=== PATIENT | male | born 1970 | race Caucasian/White ===

== ENCOUNTER 2019-10-20 15:29 | Emergency (ER) | payer SELFPAY ==
[2019-10-20] MEDS ORDERED: ONDANSETRON 4 MG (ODT) TAB ONE (16:12)
[2019-10-20] MEDS ORDERED: NA CHLORIDE 0.9% 1,000 ML ONE (16:23)
[2019-10-20 16:42] LABS: Urine Blood NEGATIVE (NEG); Urine Glucose NEGATIVE (NEG); Urine Protein 1+ (NEG); Urine pH 8.5 (5.0-7.0)
[2019-10-20 16:49] LABS: Barbiturates NEGATIVE (NEGATIVE); Benzodiazepines NEGATIVE (NEGATIVE); Cocaine NEGATIVE (NEGATIVE); METHAMPHETAM NEGATIVE (NEGATIVE); Methadone NEGATIVE (NEGATIVE); Opiates NEGATIVE (NEGATIVE); Phencyclidine NEGATIVE (NEGATIVE); THC Cannibis POSITIVE (NEGATIVE)
[2019-10-20 16:52] LABS: Basophils % 0.3 % (0-1.3); Lymphocytes % 7.4 % (15.3-44.8); MPV 11.7 fL (7.6-11.3); RBC Red Blood Cell Count 5.22 M/uL (4.33-5.43)
[2019-10-20 17:00] LABS: Albumin 4.5 g/dL (3.4-5.0); Bilirubin Direct 0.1 mg/dL (0-0.2); Bilirubin Total 0.6 mg/dL (0.2-1.0); Potassium 3.8 mmol/L (3.5-5.1); Protein, Total 8.1 g/dL (6.4-8.2)
--- NOTE | 2019-10-20 17:46 | EDPHYS ---
Physician Documentation [facility] Name: Bernard Irving Age: 49 yrs Sex: Male : 1970 Arrival Date: 10/20/2019 Time: 15:33 Bed 26 Private MD: ED Physician Husam Figueroa HPI: 10/20 16:23 This 49 yrs old Male presents to ER via Ambulatory with complaints of snw Vomiting. 16:23 The patient presents to the emergency department with nausea, vomiting, described as snw clear fluid. Onset: The symptoms/episode began/occurred gradually. Possible causes: unknown. Associated signs and symptoms: The patient has no apparent associated signs or symptoms. Severity of symptoms: At their worst the symptoms were severe in the emergency department the symptoms have resolved. The patient has experienced similar episodes in the past, multiple times, and the symptoms today are exactly the same. The patient has not recently seen a physician. no medications, no allergies. Pt states he has seen GI x 1, scope performed, unknown results. Historical: - Allergies: 16:06 No Known Allergies; ca1 - Home Meds: 16:06 None [Active]; ca1 - PMHx: 16:06 Diverticulitis; ca1 - PSHx: 16:06 None; ca1 - Immunization history:: Adult Immunizations up to date, Pneumococcal vaccine is not up to date, Flu vaccine is not up to date. - Social history:: Smoking status: Patient/guardian denies using tobacco. - Ebola Screening: : Patient negative for fever greater than or equal to 101.5 degrees Fahrenheit, and additional compatible Ebola Virus Disease symptoms Patient denies exposure to infectious person Patient denies travel to an Ebola-affected area in the 21 days before illness onset No symptoms or risks identified at this time. ROS: 16:15 Eyes: Negative for injury, pain, redness, and discharge, ENT: Negative for injury, snw pain, and discharge, Neck: Negative for injury, pain, and swelling, Cardiovascular: Negative for chest pain, palpitations, and edema, Respiratory: Negative for shortness of breath, cough, wheezing, and pleuritic chest pain, Back: Negative for injury and pain, : Negative for injury, bleeding, discharge, and swelling, MS/Extremity: Negative for injury and deformity, Skin: Negative for injury, rash, and discoloration, Neuro: Negative for headache, weakness, numbness, tingling, and seizure, Psych: Negative for depression, anxiety, suicide ideation, homicidal ideation, and hallucinations. 16:15 Constitutional: Positive for fatigue, poor PO intake. 16:15 Abdomen/GI: Positive for nausea and vomiting, cyclically/monthly, usually in the mornings. Exam: 16:15 Constitutional: This is a well developed, well nourished patient who is awake, alert, snw and in no acute distress. Head/Face: Normocephalic, atraumatic. Eyes: Pupils equal round and reactive to light, extra-ocular motions intact. Lids and lashes normal. Conjunctiva and sclera are non-icteric and not injected. Cornea within normal limits. Periorbital areas with no swelling, redness, or edema. ENT: Nares patent. No nasal discharge, no septal abnormalities noted. Tympanic membranes are normal and external auditory canals are clear. Oropharynx with no redness, swelling, or masses, exudates, or evidence of obstruction, uvula midline. Mucous membranes moist. Neck: Trachea midline, no thyromegaly or masses palpated, and no cervical lymphadenopathy. Supple, full range of motion without nuchal rigidity, or vertebral point tenderness. No Meningismus. Chest/axilla: Normal chest wall appearance and motion. Nontender with no deformity. No lesions are appreciated. Cardiovascular: Regular rate and rhythm with a normal S1 and S2. No gallops, murmurs, or rubs. Normal PMI, no JVD. No pulse deficits. Respiratory: Lungs have equal breath sounds bilaterally, clear to auscultation and percussion. No rales, rhonchi or wheezes noted. No increased work of breathing, no retractions or nasal flaring. Abdomen/GI: Soft, non-tender, with normal bowel sounds. No distension or tympany. No guarding or rebound. No evidence of tenderness throughout. Back: No spinal tenderness. No costovertebral tenderness. Full range of motion. Skin: Warm, dry with normal turgor. Normal color with no rashes, no lesions, and no evidence of cellulitis. MS/ Extremity: Pulses equal, no cyanosis. Neurovascular intact. Full, normal range of motion. Neuro: Awake and alert, GCS 15, oriented to person, place, time, and situation. Cranial nerves II-XII grossly intact. Motor strength 5/5 in all extremities. Sensory grossly intact. Cerebellar exam normal. Normal gait. Psych: Awake, alert, with orientation to person, place and time. Behavior, mood, and affect are within normal limits. Vital Signs: 16:06 BP 114 / 83; Pulse 84; Resp 16 S; Temp 98.8(O); Pulse Ox 99% on R/A; Weight 79.38 kg ca1 (R); Height 5 ft. 8 in. (172.72 cm) (R); Pain 0/10; 17:30 BP 115 / 69; Pulse 107; Resp 18 S; Pulse Ox 97% on R/A; ca1 17:51 BP 114 / 71; Pulse 87; Resp 17 S; Pulse Ox 99% on R/A; ca1 16:06 Body Mass Index 26.61 (79.38 kg, 172.72 cm) ca1 MDM: 16:09 Patient medically screened. la1 17:46 Data reviewed: vital signs, nurses notes. Data interpreted: Pulse oximetry: on room air snw is 97 %. Interpretation: normal. Response to treatment: the patient's symptoms have mildly improved after treatment. Special discussion: pt annoyed that I would suggest cyclical vomiting due to +UDS. Pt states I just want to get rid of him and makes to leave ED.. 10/20 16:13 Order name: Basic Metabolic Panel; Complete Time: 17:02 snw 10/20 16:13 Order name: CBC with Diff; Complete Time: 23:03 snw 10/20 16:13 Order name: Hepatic Function; Complete Time: 17:02 snw 10/20 16:13 Order name: Lipase; Complete Time: 17:02 snw 10/20 16:13 Order name: UDS; Complete Time: 16:52 snw 10/20 16:28 Order name: Urine Dipstick--Ancillary (enter results); Complete Time: 16:43 eb 10/20 16:13 Order name: Labs collected and sent; Complete Time: 16:29 snw 10/20 16:13 Order name: Urine Dipstick-Ancillary (obtain specimen); Complete Time: 16:28 snw 10/20 17:52 Order name: Manual Differential; Complete Time: 23:03 EDMS Administered Medications: 16:13 Drug: Zofran 4 mg Route: PO; ca1 17:28 Follow up: Response: No adverse reaction; Nausea is decreased ca1 16:29 Drug: NS 0.9% 1000 ml Route: IV; Rate: 1 bolus; Site: right antecubital; ca1 17:28 Follow up: Response: No adverse reaction; IV Status: Completed infusion; IV Intake: ca1 1000ml Disposition: 19:08 Co-signature as Attending Physician, Husam Figueroa MD. rn Disposition: 10/20/19 17:44 Discharged to Home. Impression: Cyclical vomiting, not intractable, Gastritis, unspecified, Dehydration. - Condition is Stable. - Discharge Instructions: Dehydration, Adult, Gastritis, Adult, Rehydration, Adult, Vomiting, Adult. - Prescriptions for promethazine 25 mg Oral Tablet - take 1 tablet by ORAL route every 6 hours As needed; 20 tablet. - Work release form, Medication Reconciliation Form, Thank You Letter, Antibiotic Education, Prescription Opioid Use form. - Follow up: Emergency Department; When: As needed; Reason: Worsening of condition. Follow up: Private Physician; When: 2 - 3 days; Reason: Recheck today's complaints, Continuance of care, Re-evaluation by your physician. Signatures: Dispatcher [employer] EDMS Gloria Perez, [employer] SUPERVISOR-C [employer] SUPERVISOR-Csnw Husam Figueroa MD MD rn Attema, Lee, FNP-C [employer] SUPERVISOR-Cla1 Stephanie Mccray RN RN ca1 Corrections: (The following items were deleted from the chart) 17:44 17:44 10/20/2019 17:44 Discharged to Home. Impression: Cyclical vomiting, not snw intractable; Gastritis, unspecified. Condition is Stable. Forms are Medication Reconciliation Form, Thank You Letter, Antibiotic Education, Prescription Opioid Use. Follow up: Emergency Department; When: As needed; Reason: Worsening of condition. Follow up: Private Physician; When: 2 - 3 days; Reason: Recheck today's complaints, Continuance of care, Re-evaluation by your physician. snw 17:54 17:44 10/20/2019 17:44 Discharged to Home. Impression: Cyclical vomiting, not ca1 intractable; Gastritis, unspecified; Dehydration. Condition is Stable. Forms are Medication Reconciliation Form, Thank You Letter, Antibiotic Education, Prescription Opioid Use. Follow up: Emergency Department; When: As needed; Reason: Worsening of condition. Follow up: Private Physician; When: 2 - 3 days; Reason: Recheck today's complaints, Continuance of care, Re-evaluation by your physician. snw
--- NOTE | 2019-10-20 17:46 | ER ---
Nurse's Notes [facility] Name: Bernard Irving Age: 49 yrs Sex: Male : 1970 Arrival Date: 10/20/2019 Time: 15:33 Bed 26 Private MD: Diagnosis: Cyclical vomiting, not intractable;Gastritis, unspecified;Dehydration Presentation: 10/20 16:03 Presenting complaint: Patient states: Vomiting since 0 today. This comes at least ca1 once a month, the vomiting. It starts as clear liquid then now, its turning red. Denies abdominal pain and diarrhea, cough and congestion. Reports history of Diverticulitis. Transition of care: patient was not received from another setting of care. Onset of symptoms was October 20, 2019 at 04:00. Risk Assessment: Do you want to hurt yourself or someone else? Patient reports no desire to harm self or others. Initial Sepsis Screen: Does the patient meet any 2 criteria? No. Patient's initial sepsis screen is negative. Does the patient have a suspected source of infection? No. Patient's initial sepsis screen is negative. Care prior to arrival: None. 16:03 Method Of Arrival: Ambulatory ca1 16:03 Acuity: ASH 3 ca1 Triage Assessment: 16:06 General: Appears in no apparent distress. comfortable, Behavior is calm, cooperative, ca1 appropriate for age. Pain: Denies pain. EENT: No deficits noted. No signs and/or symptoms were reported regarding the EENT system. Neuro: Level of Consciousness is awake, alert, obeys commands, Oriented to person, place, time, situation, Appropriate for age. Cardiovascular: Heart tones S1 S2 present Capillary refill < 3 seconds Patient's skin is warm and dry. Respiratory: Airway is patent Respiratory effort is even, unlabored, Respiratory pattern is regular, symmetrical, Breath sounds are clear bilaterally. GI: Abdomen is flat, non-distended, Bowel sounds present X 4 quads. Abd is soft and non tender X 4 quads. Reports vomiting, since 399 today. : No deficits noted. No signs and/or symptoms were reported regarding the genitourinary system. Derm: Skin is intact, is healthy with good turgor, Skin is pink, warm \T\ dry. Musculoskeletal: Circulation, motion, and sensation intact. Capillary refill < 3 seconds, Range of motion: intact in all extremities. Historical: - Allergies: 16:06 No Known Allergies; ca1 - Home Meds: 16:06 None [Active]; ca1 - PMHx: 16:06 Diverticulitis; ca1 - PSHx: 16:06 None; ca1 - Immunization history:: Adult Immunizations up to date, Pneumococcal vaccine is not up to date, Flu vaccine is not up to date. - Social history:: Smoking status: Patient/guardian denies using tobacco. - Ebola Screening: : Patient negative for fever greater than or equal to 101.5 degrees Fahrenheit, and additional compatible Ebola Virus Disease symptoms Patient denies exposure to infectious person Patient denies travel to an Ebola-affected area in the 21 days before illness onset No symptoms or risks identified at this time. Screenin:10 Abuse screen: Denies threats or abuse. Denies injuries from another. Nutritional ca1 screening: No deficits noted. Tuberculosis screening: No symptoms or risk factors identified. Fall Risk None identified. Assessment: 16:10 Reassessment: SEE TRIAGE ASSESSMENT. GI: Reports vomiting. ca1 16:10 GI: Abdomen is flat, non-distended, Bowel sounds present X 4 quads. Abd is soft and non ca1 tender X 4 quads. 17:30 Reassessment: Patient appears in no apparent distress at this time. Patient is alert, ca1 oriented x 3, equal unlabored respirations, skin warm/dry/pink. 17:51 Reassessment: Patient appears in no apparent distress at this time. Patient is alert, ca1 oriented x 3, equal unlabored respirations, skin warm/dry/pink. Vital Signs: 16:06 BP 114 / 83; Pulse 84; Resp 16 S; Temp 98.8(O); Pulse Ox 99% on R/A; Weight 79.38 kg ca1 (R); Height 5 ft. 8 in. (172.72 cm) (R); Pain 0/10; 17:30 BP 115 / 69; Pulse 107; Resp 18 S; Pulse Ox 97% on R/A; ca1 17:51 BP 114 / 71; Pulse 87; Resp 17 S; Pulse Ox 99% on R/A; ca1 16:06 Body Mass Index 26.61 (79.38 kg, 172.72 cm) ca1 ED Course: 15:33 Patient arrived in ED. rg4 15:56 Stephanie Mccray, ALISHA is Primary Nurse. ca1 16:05 Triage completed. ca1 16:06 Arm band placed on right wrist. ca1 16:09 Chriss Lopez FNP-C is PHCP. la1 16:09 Husam Figueroa MD is Attending Physician. la1 16:10 Patient has correct armband on for positive identification. Placed in gown. Bed in low ca1 position. Call light in reach. Side rails up X 1. Pulse ox on. NIBP on. Warm blanket given. 16:14 PHCP role handed off by Chriss Lopez FNP-C snw 16:14 Gloria Perez FNP-C is PHCP. snw 16:25 Inserted saline lock: 20 gauge in right antecubital area, using aseptic technique. jp3 Blood collected. Patient maintains SpO2 saturation greater than 95% on room air. 16:25 Initial lab(s) drawn, by me, sent to lab. Urine collected: clean catch specimen, clear, jp3 tyshawn colored. 16:25 Legal drug screen obtained per protocol. jp3 17:53 No provider procedures requiring assistance completed. IV discontinued, intact, ca1 bleeding controlled, No redness/swelling at site. Pressure dressing applied. Administered Medications: 16:13 Drug: Zofran 4 mg Route: PO; ca1 17:28 Follow up: Response: No adverse reaction; Nausea is decreased ca1 16:29 Drug: NS 0.9% 1000 ml Route: IV; Rate: 1 bolus; Site: right antecubital; ca1 17:28 Follow up: Response: No adverse reaction; IV Status: Completed infusion; IV Intake: ca1 1000ml Intake: 17:28 IV: 1000ml; Total: 1000ml. ca1 Outcome: 17:44 Discharge ordered by . snw 17:53 Discharged to home ambulatory. ca1 17:53 Condition: stable 17:53 Discharge instructions given to patient, Instructed on discharge instructions, follow up and referral plans. medication usage, Demonstrated understanding of instructions, follow-up care, medications, Prescriptions given X 1. 17:54 Patient left the ED. ca1 Signatures: Gloria Perez FNP-C FNP-Csnw Chriss Lopez FNP-C FNP-Cla1 Carlene Queen rg4 Charbel Zavala jp3 Stephanie Mccray RN RN ca1 Corrections: (The following items were deleted from the chart) 17:30 16:10 GI: Reports vomiting, ca1 ca1
[2019-10-20 17:52] LABS: Blood Morphology Comment NOT SEEN (NOT SEEN); Platelet Estimate ADEQ
[2019-10-20 19:05] VITALS: TEMP 98.8
[2019-10-20 19:07] VITALS: BP 114/71; O2SAT 99
== END 2019-10-20 17:54 | disposition home or self-care (01) ==
LOC: ER 15:29
DX: E86.0 Dehydration (principal); K29.70 Gastritis, unspecified, without bleeding
CPT/HCPCS: 36415; 80048; 80076; 80307; 81003; 83690; 85025; 96360; 99284; J7030

== ENCOUNTER 2021-06-16 14:43 | Emergency (ER) | payer SELFPAY ==
--- OUTSIDE RECORDS SUMMARY | 2021-06-16 14:46 | XMS REPORT | Continuity of Care Document ---
:1970 Author Organization [facility] t Address [address] [place] [place] [address] Care Team Providers Name Role Phone Harjinder ARAMBULA Attending Clinician Singer DOWNS Attending Clinician Problems This patient has no known problems. Allergies, Adverse Reactions, Alerts This patient has no known allergies or adverse reactions. Medications This patient has no known medications. Procedures This patient has no known procedures. Encounters Start End Encounter Admission Attending Care Care Encounter Source Date/Time Date/Time Type Type Clinicians Facility Department ID 2021-02-18 2021[facility]02-18 [id number] 13:21:00 16:27:00 Nadeem Gant [id number] [place] [id number] [place] [id number] 2021-02-16 2021-02-17 Emergency [facility] [id number] 21:09:00 00:08:00 Johnathan Gant [id number] [place] [id number] [place] [id number] Results This patient has no known results.
[2021-06-16] MEDS ORDERED: ONDANSETRON 4 MG (ODT) TAB ONE (16:15)
[2021-06-16 16:26] LABS: Absolute Lymphocytes (CBC) 0.7 K/uL (0.7-4.9); Basophils % 0.3 % (0-1.3); Hematocrit 46.9 % (39.6-49.0); Lymphocytes % 4.7 % (15.3-44.8); MPV 10.6 fL (7.6-11.3); RBC Red Blood Cell Count 5.24 M/uL (4.33-5.43)
[2021-06-16 16:39] LABS: Albumin 4.7 g/dL (3.4-5.0); Bilirubin Direct 0.1 mg/dL (0-0.2); Bilirubin Total 0.5 mg/dL (0.2-1.0); Potassium 4.1 mmol/L (3.5-5.1); Protein, Total 8.3 g/dL (6.4-8.2)
[2021-06-16] MEDS ORDERED: ONDANSETRON 4 MG/2 ML VIAL ONE (16:54)
[2021-06-16] MEDS ORDERED: NA CHLORIDE 0.9% 1,000 ML ONE (16:55)
[2021-06-16] MEDS ORDERED: FAMOTIDINE 20 MG/2 ML VIAL IV ONE (16:55)
[2021-06-16] MEDS ORDERED: PROMETHAZINE INJ 25 MG/ML AMP ONE (17:14)
--- NOTE | 2021-06-16 17:34 | RAD REPORT ---
EXAM DESCRIPTION: CT - Abdomen Pelvis W Contrast - 06/16/2021 5:11 pm CLINICAL HISTORY: Abd pain;Nausea / vomiting COMPARISON: <Comparisons> TECHNIQUE: Biphasic, helical CT imaging of the abdomen and pelvis was performed following 100 ml non -ionic IV contrast. No oral contrast was given. All CT scans are performed using dose optimization technique as appropriate and may include automated exposure control or mA/KV adjustment according to patient size. FINDINGS: No suspicious findings in the lung bases. The liver, spleen, and pancreas show no suspicious findings. Gallbladder and biliary tree are also wi thout suspicious finding. Symmetric renal function is seen with no hydronephrosis or suspicious renal mass. No pyelonephritis o r acute parenchymal process. No bladder abnormalities. No adrenal abnormalities. No dilated bowel loops or bowel wall thickening. Appendix is normal. Diverticulosis is present withou t diverticulitis. No gross evidence for mass lesion. Decompressed colon on the left limits assessment . No free air, free fluid or inflammatory stranding. No hernia, mass or bulky lymphadenopathy. No suspicious bony findings. No significant vascular findings. 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 IMPRESSION: Contrast enhanced CT abdomen and pelvis showing no acute or emergent finding.
--- NOTE | 2021-06-16 17:55 | EDPHYS ---
Physician Documentation [facility] Name: Bernard Irving Age: 50 yrs Sex: Male : 1970 Arrival Date: 06/16/2021 Time: 14:44 Bed Treatment Private MD: DAYNA Physician Luis Rivera HPI: 06/16 16:50 This 50 yrs old Male presents to ER via EMS with complaints of sarai Nausea/Vomiting. 16:50 The patient presents to the emergency department with nausea, vomiting, diarrhea, that sarai is continuous. Onset: The symptoms/episode began/occurred this morning. Possible causes: unknown. The symptoms are aggravated by nothing. The symptoms are alleviated by nothing. Associated signs and symptoms: The patient has no apparent associated signs or symptoms. Severity of symptoms: At their worst the symptoms were moderate in the emergency department the symptoms are unchanged. The patient has not experienced similar symptoms in the past. Historical: - Allergies: 15:47 No Known Allergies; kg - Home Meds: 15:47 None [Active]; kg - PMHx: 15:47 Diverticulitis; kg - PSHx: 15:47 None; kg - Immunization history:: Adult Immunizations not up to date, Client reports having NOT received the Covid vaccine. - Social history:: Smoking status: Patient denies any tobacco usage or history of. ROS: 16:50 Constitutional: Negative for fever, chills, and weight loss, Eyes: Negative for injury, sarai pain, redness, and discharge, ENT: Negative for injury, pain, and discharge, Neck: Negative for injury, pain, and swelling, Cardiovascular: Negative for chest pain, palpitations, and edema, Respiratory: Negative for shortness of breath, cough, wheezing, and pleuritic chest pain, Back: Negative for injury and pain, : Negative for injury, bleeding, discharge, and swelling, MS/Extremity: Negative for injury and deformity, Skin: Negative for injury, rash, and discoloration, Neuro: Negative for headache, weakness, numbness, tingling, and seizure, Psych: Negative for depression, anxiety, suicide ideation, homicidal ideation, and hallucinations, Allergy/Immunology: Negative for hives, rash, and allergies, Endocrine: Negative for neck swelling, polydipsia, polyuria, polyphagia, and marked weight changes, Hematologic/Lymphatic: Negative for swollen nodes, abnormal bleeding, and unusual bruising. 16:50 Abdomen/GI: Positive for abdominal pain, nausea and vomiting, diarrhea. Exam: 16:50 Constitutional: This is a well developed, well nourished patient who is awake, alert, sarai and in no acute distress. Head/Face: Normocephalic, atraumatic. Eyes: Pupils equal round and reactive to light, extra-ocular motions intact. Lids and lashes normal. Conjunctiva and sclera are non-icteric and not injected. Cornea within normal limits. Periorbital areas with no swelling, redness, or edema. ENT: Nares patent. No nasal discharge, no septal abnormalities noted. Tympanic membranes are normal and external auditory canals are clear. Oropharynx with no redness, swelling, or masses, exudates, or evidence of obstruction, uvula midline. Mucous membranes moist. Neck: Trachea midline, no thyromegaly or masses palpated, and no cervical lymphadenopathy. Supple, full range of motion without nuchal rigidity, or vertebral point tenderness. No Meningismus. Chest/axilla: Normal chest wall appearance and motion. Nontender with no deformity. No lesions are appreciated. Cardiovascular: Regular rate and rhythm with a normal S1 and S2. No gallops, murmurs, or rubs. Normal PMI, no JVD. No pulse deficits. Respiratory: Lungs have equal breath sounds bilaterally, clear to auscultation and percussion. No rales, rhonchi or wheezes noted. No increased work of breathing, no retractions or nasal flaring. Back: No spinal tenderness. No costovertebral tenderness. Full range of motion. Male : Normal genitalia with no discharge or lesions. Skin: Warm, dry with normal turgor. Normal color with no rashes, no lesions, and no evidence of cellulitis. MS/ Extremity: Pulses equal, no cyanosis. Neurovascular intact. Full, normal range of motion. Neuro: Awake and alert, GCS 15, oriented to person, place, time, and situation. Cranial nerves II-XII grossly intact. Motor strength 5/5 in all extremities. Sensory grossly intact. Cerebellar exam normal. Normal gait. Psych: Awake, alert, with orientation to person, place and time. Behavior, mood, and affect are within normal limits. 16:50 Abdomen/GI: Inspection: abdomen appears normal, Bowel sounds: normal, Palpation: abdomen is soft and non-tender, Liver: no appreciated palpable abnormalities, Hernia: not appreciated. Vital Signs: 15:46 BP 117 / 76; Pulse 108; Resp 20; Temp 98.5(O); Pulse Ox 97% on R/A; Weight 81.65 kg kg (R); Height 5 ft. 8 in. (172.72 cm); Pain 3/10; 15:46 Body Mass Index 27.37 (81.65 kg, 172.72 cm) kg MDM: 15:56 Patient medically screened. [facility] 16:58 Differential diagnosis: Nonspecific abd pain, viral gastroenteritis, gastroenteritis. [facility] Data reviewed: vital signs, nurses notes, lab test result(s), EKG, radiologic studies, CT scan. 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 on room air is 97 %. Counseling: I had a detailed discussion with the patient and/or guardian regarding: the historical points, exam findings, and any diagnostic results supporting the discharge/admit diagnosis, lab results, radiology results, the need for outpatient follow up, for definitive care, a family practitioner. 06/16 15:49 Order name: Flu; Complete Time: 16:48 kg 06/16 15:49 Order name: Basic Metabolic Panel; Complete Time: 16:48 kg 06/16 15:49 Order name: CBC with Diff; Complete Time: 16:48 kg 06/16 15:49 Order name: Hepatic Function; Complete Time: 16:48 kg 06/16 15:49 Order name: Lipase; Complete Time: 16:48 kg 06/16 16:13 Order name: Chest Single View XRAY [facility] 06/16 16:50 Order name: CT Abd/Pelvis - IV Contrast Only; Complete Time: 17:54 [facility] 06/16 17:28 Order name: SARS-COV-2 RT PCR; Complete Time: 17:54 EDMS 06/16 15:49 Order name: IV Saline Lock; Complete Time: 16:17 kg 06/16 15:49 Order name: Labs collected and sent; Complete Time: 16:17 kg Administered Medications: 15:52 Drug: Ondansetron 4 mg Route: PO; kg 16:39 Drug: NS 0.9% 1000 ml Route: IV; Rate: 1 bolus; Site: right antecubital; iw 16:39 Drug: Zofran (Ondansetron) 4 mg Route: IVP; Site: right antecubital; iw 16:39 Drug: Pepcid (famotidine) 20 mg Route: IVP; Site: right antecubital; iw 16:55 Drug: Phenergan (promethazine) 25 mg Route: IVP; Site: right antecubital; iw 18:37 Not Given (Physician Discretion): NS 0.9% 1000 ml IV at 1 bolus Per protocol; 1000 mL iw bolus Disposition Summary: 06/16/21 17:55 Discharge Ordered Location: Home sarai Problem: new sarai Symptoms: have improved sarai Condition: Stable sarai Diagnosis - Vomiting sarai - Diarrhea, unspecified sarai Followup: sarai - With: Private Physician - When: 2 - 3 days - Reason: Recheck today's complaints, Continuance of care, Re-evaluation by your physician Discharge Instructions: - Discharge Summary Sheet sarai - Food Choices to Help Relieve Diarrhea, Adult sarai - Diarrhea, Adult sarai - Nausea and Vomiting, Adult sarai - Vomiting, Adult sarai Forms: - Medication Reconciliation Form [facility] - Thank You Letter [facility] - Antibiotic Education sarai - Prescription Opioid Use [facility] - Work release form eb Prescriptions: - Pepcid 20 mg Oral Tablet - take 1 tablet by ORAL route every 12 hours for 10 days; 20 tablet; Refills: 0, [facility] Product Selection Permitted - Zofran 4 mg Oral Tablet - take 1 tablet by ORAL route every 12 hours As needed; 20 tablet; Refills: 0, [facility] Product Selection Permitted - promethazine 25 mg Oral Tablet - take 1 tablet by ORAL route every 6 hours As needed; 20 tablet; Refills: 0, [facility] Product Selection Permitted Signatures: Dispatcher [employer] EDLuis Martinez MD MD cha Williams, Irene, RN RN iw Graham, Kristen, RN RN kg Corrections: (The following items were deleted from the chart) 16:33 15:50 CORONAVIRUS+MARTHAAugustin ordered. [facility] DAYNAGA
--- NOTE | 2021-06-16 17:55 | ER ---
Nurse's Notes [facility] Name: Bernard Irving Age: 50 yrs Sex: Male : 1970 Arrival Date: 06/16/2021 Time: 14:44 Bed Treatment Private MD: Diagnosis: Vomiting;Diarrhea, unspecified Presentation: 06/16 15:46 Chief complaint: Patient states: Nausea, Vomiting, Diarrhea since 03:00. Coronavirus kg screen: Client denies travel out of the [place] in the last 14 days. At this time, unable to obtain information related to travel outside the [place] Client presents with at least one sign or symptom that may indicate coronavirus-19. Standard/surgical mask placed on the client. Provider contacted for isolation considerations. Ebola Screen: Patient negative for fever greater than or equal to 101.5 degrees Fahrenheit, and additional compatible Ebola Virus Disease symptoms Patient denies exposure to infectious person. Patient denies travel to an Ebola-affected area in the 21 days before illness onset. Initial Sepsis Screen: Does the patient meet any 2 criteria? Does the patient have a suspected source of infection? No. Patient's initial sepsis screen is negative. Risk Assessment: Do you want to hurt yourself or someone else? Patient reports no desire to harm self or others. Onset of symptoms was June 16, 2021 at 03:00. 15:46 Method Of Arrival: EMS: [facility] kg 15:46 Acuity: ASH 4 kg 16:56 Acuity: ASH 3 iw Triage Assessment: 15:47 General: Appears in no apparent distress. Behavior is calm, cooperative, appropriate kg for age, quiet. Pain: Complains of pain in epigastric area Pain currently is 3 out of 10 on a pain scale. GI: Reports diarrhea, nausea, vomiting. Historical: - Allergies: 15:47 No Known Allergies; kg - Home Meds: 15:47 None [Active]; kg - PMHx: 15:47 Diverticulitis; kg - PSHx: 15:47 None; kg - Immunization history:: Adult Immunizations not up to date, Client reports having NOT received the Covid vaccine. - Social history:: Smoking status: Patient denies any tobacco usage or history of. Screenin:56 Abuse screen: Denies threats or abuse. Denies injuries from another. Nutritional iw screening: Has had N/V for 3 or more days. Tuberculosis screening: No symptoms or risk factors identified. Fall Risk Assessment: 16:56 Reassessment: Patient appears in no apparent distress at this time. Patient and/or iw family updated on plan of care and expected duration. Pain level reassessed. Patient is alert, oriented x 3, equal unlabored respirations, skin warm/dry/pink. Vital Signs: 15:46 BP 117 / 76; Pulse 108; Resp 20; Temp 98.5(O); Pulse Ox 97% on R/A; Weight 81.65 kg kg (R); Height 5 ft. 8 in. (172.72 cm); Pain 3/10; 15:46 Body Mass Index 27.37 (81.65 kg, 172.72 cm) kg ED Course: 14:44 Patient arrived in ED. as 15:47 Triage completed. kg 15:47 Arm band placed on left wrist. kg 15:53 Flu Sent. kg 15:56 Luis Rivera MD is Attending Physician. sarai 16:16 Britney Cook, RN is Primary Nurse. iw 16:35 Initial lab(s) drawn, by ia, sent to lab. Inserted saline lock: 22 gauge in right em1 antecubital area, using aseptic technique. Blood collected. 17:08 Chest Single View XRAY In Process Unspecified. EDMS 17:11 CT Abd/Pelvis - IV Contrast Only In Process Unspecified. EDMS Administered Medications: 15:52 Drug: Ondansetron 4 mg Route: PO; kg 16:39 Drug: NS 0.9% 1000 ml Route: IV; Rate: 1 bolus; Site: right antecubital; iw 16:39 Drug: Zofran (Ondansetron) 4 mg Route: IVP; Site: right antecubital; iw 16:39 Drug: Pepcid (famotidine) 20 mg Route: IVP; Site: right antecubital; iw 16:55 Drug: Phenergan (promethazine) 25 mg Route: IVP; Site: right antecubital; iw 18:37 Not Given (Physician Discretion): NS 0.9% 1000 ml IV at 1 bolus Per protocol; 1000 mL iw bolus Outcome: 17:55 Discharge ordered by . sarai 18:37 Patient left the ED. iw Signatures: Dispatcher [employer] EDMS Luis Rivera MD MD cha Martinez, Aleena as Joey, Britney, Deshawn Sadler RN em1 Lena Rendon, ALISHA RN kg Corrections: (The following items were deleted from the chart) 16:33 15:53 CORONAVIRUS+ drawn and sent. kg EDMS
--- NOTE | 2021-06-16 18:06 | RAD REPORT ---
EXAM DESCRIPTION: RAD - Chest Single View - 06/16/2021 5:06 pm CLINICAL HISTORY: COUGH TECHNIQUE: AP portable chest image was obtained 06/16/2021 5:06 pm . FINDINGS: Lungs are clear. Interstitial pattern not clearly outside of normal range. Heart and vascu lature are normal. No measurable pleural effusion and no pneumothorax. No acute bony abnormality seen . No acute aortic findings suspected. IMPRESSION: No acute cardiopulmonary process.
[2021-06-16 18:42] VITALS: BP 117/76; TEMP 98.5; O2SAT 97
== END 2021-06-16 18:37 | disposition home or self-care (01) ==
LOC: ER 14:43
DX: R19.7 Diarrhea, unspecified (principal); Z20.822 Contact with and (suspected) exposure to COVID-19
CPT/HCPCS: 36415; 71045; 74177; 80048; 80076; 83690; 85025; 87804; 96374; 96375; 99284; J2405; J2550; J7030; Q9967; U0003

== ENCOUNTER 2023-02-17 09:32 | Inpatient (IN) | payer SELFPAY ==
--- OUTSIDE RECORDS SUMMARY | 2023-02-17 09:38 | XMS REPORT | Continuity of Care Document ---
:1970 Author Organization [facility] t Address [address] [facility] [address] [place] [address] Care Team Providers Name Role Phone PCP, PATIENT DOES NOT HAVE A Primary Care Physician Unavaila ble Jesus Sanchez Attending Clinician Jesus DEE Attending Clinician Unavailable Doctor Unassigned, [place] Attending Clinician Unavailable Nadeem Grande MD Attending Clinician Johnathan Resendez DO Attending Clinician Jesus DEE Admitting Clinician Unavailable Problems Condition Condition Condition Status Onset Resolution Last Treating Co mments Source Name Details Category Date Date Treatment Clinician Date Intractabl Intractabl Disease Active 2019-0 U nivers e vomiting e vomiting 1-21 it y of 00:00: [place] 00 Medical Branch Nausea and Nausea and Disease Active 2019-0 U nivers vomiting vomiting 1-17 ity of 00:00: [place] 00 Medical Branch Intractabl Intractabl Disease Active 2019-0 U nivers e nausea e nausea 1-16 ity of and and 00:00: [place] vomiting vomiting 00 Medica l Branch Lower Lower Disease Active 2019-0 Overview: Univer s abdominal abdominal 1-16 Formattin i ty of pain pain 00:00: g of this [place] 00 note Medical might be Branch different from the original. Added automatic ally from request for surgery [id number] Allergies, Adverse Reactions, Alerts Allergy Allergy Status Severity Reaction(s) Onset Inactive Treating Comm ents Source Name Type Date Date Clinician NO KNOWN Drug Active Univers ALLERGIE Class ity of S [facility] Social History Social Habit Start Date Stop Date Quantity Comments Source History SDOH University o f Alcohol Frequency [place] M edical Branch History SDOH University o f Alcohol Std [place] Medical Drinks Branch History SDOH University o f Alcohol Binge [place] Medic al Branch Exposure to 2022-03-14 2022-03-24 Unable to assess Univers ity of SARS-CoV-2 00:00:00 15:58:00 [facility] (event) Branch Alcohol intake 2019-03-03 2019-03-03 Current drinker Unive rsity of 00:00:00 00:00:00 of alcohol [facility] (finding) Branch Tobacco use and 2018-11-10 2018-11-10 Never used Universit y of exposure 00:00:00 00:00:00 [facility] Alcohol Comment 2018-11-10 2018-11-10 socially Universit y of 00:00:00 00:00:00 [facility] Sex Assigned At [birth year] Universit y of 00:00:00 00:00:00 [facility] Smoking Status Start Date Stop Date Source Never smoker [facility] Medications Ordered Filled Start Stop Current Ordering Indication Dosage Frequency Signature Comments Components Source Medication Medication Date Date Medication? Clinician (SIG) Name Name ondansetron 2021- No 4mg 4 mg, Slow Univers (ZOFRAN 03-25- IV Push, ity of (PF)) 01:45: 00:53 ONCE, 1 [place] injection 4 00 :00 dose, On Medi jhonatan mg Mon Branch 03/24/22 at 2044, CHRISTOPHER NaCl 0.9% 2021- No 1000mL at 999 Uni vers (NS) bolus 03-25-31 mL/hr, ity of infusion 01:45: 03:00 1,000 mL, Lion as 1,000 mL 00 :00 IV Medical Infusion, Branch ONCE, 1 dose, On 03/24/22 at 2044, STAT NaCl 0.9% 2021- No 1000mL at 999 Uni vers (NS) bolus - 05-31 mL/hr, ity of infusion 00:15: 00:54 1,000 mL, [place] as 1,000 mL 00 :00 IV Medical Infusion, Branch ONCE, 1 dose, On 03/24/22 at 1915, STAT maalox:diph 2021- No 15mL 15 mL, Uni vers enhydrAMINE 03-2530 Oral ity of :lidocaine 00:15: 23:30 ([place] % viscous 00 :00 Swallow), Med ical 1:1:1 ONCE, 1 Branch (FIRST-MOUT dose, On HWASH BLM) Mon oral 03/24/22 at suspension 1915, 15 mL Routine famotidine 2021- No 20mg 20 mg, Univ ers (PEPCID 03-25 05-30 Slow IV ity of (PF)) 00:15: 23:30 Push, [place] injection 00 :00 ONCE, 1 Medical 20 mg dose, On Branch 03/24/22 at 1915, CHRISTOPHER iopamidol 2021- No [id number] 75mL 75 mL, Univers (ISOVUE 03-24-30 Intravenou ity o f 370-500 mL) 23:17: 23:18 s, ONCE, 1 [place] injection 00 :00 dose, On Medica l 75 mL Mon Branch 03/24/22 at 1830, Routine ondansetron 2021- No 4mg 4 mg, Slow Univers (ZOFRAN 03-24 05-30 IV Push, ity of (PF)) 22:30: 22:17 ONCE, 1 [place] injection 4 00 :00 dose, On Medi jhonatan mg Mon Branch 03/24/22 at 1730, CHRISTOPHER ondansetron Yes [id number] 4mg Take 1 Univers (ZOFRAN) 4 5-30 tablet by ity of mg tablet 00:00: mouth [place] 00 every 8 Medical (eight) Branch hours as needed for Nausea and Vomiting (N/V). famotidine Yes [id number] 40mg Take 1 Univers (PEPCID) 40 5-30 tablet by ity of mg tablet 00:00: mouth [place] 00 daily. Medical Branch proMETHazin Yes [id number] 25mg Take 1 Univers e 25 mg 4-26 tablet by ity of tablet 00:00: mouth [place] 00 every 6 Medical (six) Branch hours as needed for Nausea and Vomiting (N/V). pantoprazol 2020-0 Yes [id number] 40mg Take 1 Univers e 40 mg EC 4-26 tablet by ity of tablet 00:00: mouth daily. Medical Branch proMETHazin 2020-0 Yes [id number] 25mg Take 1 Univers e 25 mg 4-26 tablet by ity of tablet 00:00: mouth [place] 00 every 6 Medical (six) Branch hours as needed for Nausea and Vomiting (N/V). pantoprazol 2020-0 Yes [id number] 40mg Take 1 Univers e 40 mg EC 4-26 tablet by ity of tablet 00:00: mouth daily. Medical Branch Capsaicin 2020-0 Yes [id number] Apply to Univers 0.025 % 4-24 area(s) as ity of PtMd 00:00: needed for Nausea and Medical Vomiting Branch (N/V). dicyclomine 0 Yes [id number] 10mg Take 1 Univers 10 mg 4-24 capsule by ity of capsule 00:00: mouth every 8 Medical (eight) Branch hours as needed for Abdominal pain. ondansetron 0 Yes [id number] 4mg Take 1 Univers 4 mg 4-24 tablet by ity of disintegrat 00:00: mouth [place] ing tablet 00 every 8 Medica l (eight) Branch hours as needed for Nausea and Vomiting (N/V). Capsaicin 2020-0 Yes [id number] Apply to Univers 0.025 % 4-24 area(s) as ity of PtMd 00:00: needed for Nausea and Medical Vomiting Branch (N/V). dicyclomine 0 Yes [id number] 10mg Take 1 Univers 10 mg 4-24 capsule by ity of capsule 00:00: mouth every 8 Medical (eight) Branch hours as needed for Abdominal pain. ondansetron 0 Yes [id number] 4mg Take 1 Univers 4 mg 4-24 tablet by ity of disintegrat 00:00: mouth [place] ing tablet 00 every 8 Medica l (eight) Branch hours as needed for Nausea and Vomiting (N/V). sucralfate 2018-0 Yes [id number] 1000mg Take 10 mL Univers (CARAFATE) 5-09 by mouth ity o f 100 mg/mL 00:00: before [place] suspension 00 meals and Medi jhonatan at Branch bedtime. benzonatate 2019-0 Yes [id number] 100mg Take 1 Univers 100 mg 5-09 capsule by ity of capsule 00:00: mouth 3 (three) Medical times Branch daily as needed for Cough. sucralfate 2019-0 Yes [id number] 1000mg Take 10 mL Univers (CARAFATE) 5-09 by mouth ity o f 100 mg/mL 00:00: before [place] suspension 00 meals and [facility] at Branch bedtime. benzonatate 2019-0 Yes [id number] 100mg Take 1 Univers 100 mg 5-09 capsule by ity of capsule 00:00: mouth 3 (three) Medical times Branch daily as needed for Cough. ciprofloxac 2019-0 Yes [id number] 500mg Take 1 Univers in HCl 500 5-03 tablet by ity of mg tablet 00:00: mouth 2 (two) Medical times Branch daily. proMETHazin 2019-0 Yes [id number] 25mg Take 1 Univers e 25 mg 5-03 tablet by ity of tablet 00:00: mouth [place] every 6 Medical (six) Branch hours as needed for Nausea and Vomiting (N/V). ciprofloxac 2019-0 Yes [id number] 500mg Take 1 Univers in HCl 500 5-03 tablet by ity of mg tablet 00:00: mouth 2 (two) Medical times Branch daily. proMETHazin 2019-0 Yes [id number] 25mg Take 1 Univers e 25 mg 5-03 tablet by ity of tablet 00:00: mouth [place] every 6 Medical (six) Branch hours as needed for Nausea and Vomiting (N/V). ciprofloxac 2019-0 Yes [id number] 500mg Take 1 Univers in HCl 500 1-23 tablet by ity of mg tablet 00:00: mouth 2 (two) Medical times Branch daily. ciprofloxac 2019-0 Yes [id number] 500mg Take 1 Univers in HCl 500 1-23 tablet by ity of mg tablet 00:00: mouth 2 [place] (two) Medical times Branch daily. Vital Signs Vital Name Observation Time Observation Value Comments Source Respiratory rate 2022-03-25 01:46:00 20 /min [facility] Oxygen saturation in 2022-03-25 01:46:00 96 /min [facility] blood by [facility] Pulse oximetry Branch Systolic blood 2022-03-25 01:46:00 110 mm[Hg] [facility] [place] [facility] pressure [facility] Diastolic blood 2022-03-25 01:46:00 69 mm[Hg] [facility] Heart rate 2022-03-25 01:46:00 67 /min [facility] Body temperature 2022-03-25 01:46:00 37.28 Shivani [facility] Body height 2022-03-24 21:08:00 172.7 cm [facility] Body weight 2022-03-24 21:08:00 81.647 kg [facility] BMI 2022-03-24 21:08:00 27.37 kg/m2 [facility] Procedures Procedure Date / Time Performed Performing Clinician Ede e CT ABDOMEN PELVIS W 2022-03-24 23:24:00 Jesus Dee [facility] CONTRAST [facility] URINALYSIS 2022-03-24 22:46:00 Jesus Dee [facility] LIPASE 2022-03-24 22:11:00 Carlos A, [facility] MAGNESIUM 2022-03-24 22:11:00 Carlos A, [facility] TROPONIN I 2022-03-24 22:11:00 Carlos A, [facility] COMP. METABOLIC PANEL 2022-03-24 22:11:00 Jesus Dee [facility] ([id number]) [facility] CBC WITH DIFF 2022-03-24 22:11:00 Carlos A, [facility] ASSIGNMENT OF BENEFITS 2022-03-24 21:55:11 Doctor Unassigned, No [facility] Medical [place] NOTICE OF PRIVACY 2022-03-24 20:57:45 Doctor Unassigned, No [facility] CONSENT/REFUSAL FOR 2022-03-24 20:57:17 Doctor Unassigned, No [facility] DIAGNOSIS AND [facility] Medical Branch TREATMENT Encounters Start End Encounter Admission Attending Care Care Encounter Source Date/Time Date/Time Type Type Clinicians Facility Department ID 2022-03-24 2022-03-24 Emergency Jesus Dee [facility] [id number] Univers 16:10:00 22:02:00 Maritza GANT [id number] i ty of [place] 4.2.7.2.686 [facility] [id number] [facility] 084 [place] 2022-03-24 2022-03-24 Emergency X Jesus DEE [facility] ERT [id number] Univers 16:10:00 22:02:00 ity [facility] 2022-03-24 2022-03-24 Orders Doctor ROGERS [id number] Univers 00:00:00 00:00:00 Only Unassigned, UMER [id number] ity [facility] 4.2.7.2.686 [facility] [id number] [facility] 009 Branch 2021-02-18 2021-02-18 [facility] [id number] 13:21:00 16:27:00 Nadeem Stalin [id number] [place] 4.2.7.2.686 [place] [id number] [facility] 2021-02-18 2021-02-18 Emergency X [facility] ERT [id number] Univers 13:15:00 13:15:00 ity [facility] 2021-02-16 2021-02-17 Emergency Resendez, [facility] [id number] 21:09:00 00:08:00 Johnathan Gant 350.1.13.10 [place] 4.2.7.2.686 [place] [id number] [facility] 2021-02-16 2021-02-16 Emergency X [facility] ERT [id number] Univers 21:03:00 [facility]:03[facility] Test Description Test Time Test Comments Results Result Comments Source TROPONIN I 2022-03-24 22:56:15 Test Item Value Reference Range Interpretation Comme nts TROPONIN I (test code = <0.012 See_Comment [Au tomated message] The 1876583435) system which ge nerated this result tra nsmitted reference range : <=0.034 ng/mL. The refe rence range was not u sed to interpret this result as normal/abnormal . KALI (test code = KALI) Reference (Normal) Range (defined by the 99th percentile reference limit): <= 0.034 ng/mL Note: Cardiac troponin begins to rise 3-4 hours after the onset of ischemia. Repeat in 4-6 hours if the sample was drawn within 3-4 hours of the onset of the symptom and found normal. Diagnosis of myocardial injury is made with acute changes in cTn concentrations with at least one serial sample above the 99th percentile upper reference limit (URL), taken together with the patient's clinical presentation. Biotin has been reported to cause a negative bias, interpret results relative to patient's use of biotin. Lab Interpretation Normal (test code = 18634-1) [facility]57 Test Item Value Reference Range Interpretation Comments MAGNESIUM (test code = 9363962990) 1.9 mg/dL 1.7-2.4 Lab Interpretation (test code = Normal 07976-3) [facility] ([id number])2022-03-24 22:44:37 Test Item Value Reference Range Interpretation Comments NA (test code = 142 mmol/L 135-145 8230524315) K (test code = 4.6 mmol/L 3.5-5.0 4213243501) CL (test code = 104 mmol/L 98-108 0497294396) CO2 TOTAL (test code = 24 mmol/L 23-31 8329710819) AGAP (test code = 2-16 7660705029) BUN (test code = 13 mg/dL 7-23 9073325426) GLUCOSE (test code = 130 mg/dL 70-110 H 5501331001) CREATININE (test code = 0.93 mg/dL 0.60-1.25 3227452278) TOTAL BILI (test code = 0.5 mg/dL 0.1-1.8 0407181975) CALCIUM (test code = 9.6 mg/dL 8.6-10.6 9783000585) T PROTEIN (test code = 7.6 g/dL 6.3-8.2 1971394021) ALBUMIN (test code = 4.8 g/dL 3.5-5.0 2696649151) ALK PHOS (test code = 63 U/L 34-122 0066069682) ALTv (test code = 16 U/L 5-50 1742-6) AST(SGOT) (test code = 21 U/L 13-40 1309522794) eGFR (test code = mL/min/1.73m2 7286377286) KALI (test code = KALI) Association of Glomerular Filtration Rate (GFR) and Staging of Kidney Disease* + --+ --+ ------+| GFR (mL/min/1.73 m2) ?| With Kidney Damage ?| ?Without Kidney Damage+ --------+ --------+ +| ?>90 ?| ?Stage one ?| ? Normal ?+ ---+ ---+ -------+| ?60-89 ?| ?Stage two ?| ? Decreased GFR ? + --+ --+ ------+| ?30-59 ?| ?Stage three ?| ? Stage three ? + --+ --+ ------+| ?15-29 ?| ?Stage four ? | ? Stage four ?+ ---+ ---+ -------+| ?<15 (or dialysis) ? ?| ?Stage five ? | ? Stage five ?+ ---+ ---+ -------+ *Each stage assumes the associated GFR level has been in effect for at least three months. ?Stages 1 to 5, with or without kidney disease, indicate chronic kidney disease. Notes: Determination of stages one and two (with eGFR >59mL/min/1.73 m2) requires estimation of kidney damage for at least three months as defined by structural or functional abnormalities of the kidney, manifested by either:Pathological abnormalities or Markers of kidney damage (including abnormalities in the composition of the blood or urine or abnormalities in imaging tests). Lab Interpretation Abnormal (test code = 61811-6) [facility] 22[facility]44:37 Test Item Value Reference Range Interpretation Comments LIPASE (test code = 9676041189) 138 U/L 0-220 Lab Interpretation (test code = Normal 72982-4) [facility] P[facility]Y0148-09-25 22:30:54 Test Item Value Reference Range Interpretation Comments WBC (test code = See_Comment H [Automated 8090-2) message] The system which generated this result transmit courtney reference range : 4.20 - 10.70 10*3/?L. The reference range was not used to interpret this result as normal/abnormal . RBC (test code = See_Comment [Automated 789-8) message] The system which generated this result transmit courtney reference range : 4.26 - 5.52 10*6/?L. The reference range was not used to interpret this result as normal/abnormal . HGB (test code = 16.0 g/dL 12.2-16.4 718-7) HCT (test code = 47.8 % 38.4-49.3 4544-3) MCV (test code = 89.8 fL 81.7-95.6 787-2) MCH (test code = 30.1 pg 26.1-32.7 785-6) MCHC (test code = 33.5 g/dL 31.2-35.0 786-4) RDW-SD (test code = 39.8 fL 38.5-51.6 20958-9) RDW-CV (test code = 12.1 % 12.1-15.4 788-0) PLT (test code = See_Comment [Automated 777-3) message] The system which generated this result transmit courtney reference range : 150 - 328 10*3/ ?L. The reference range was not u sed to interpret th is result as normal/abnormal . MPV (test code = 12.0 fL 9.8-13.0 17854-4) NRBC/100 WBC (test See_Comment [Automat ed code = 9981360962) message] The system which generated this result transmit courtney reference range : 0.0 - 10.0 /100 WBCs. The reference range was not used to interpret this result as normal/abnormal . NRBC x10^3 (test code <0.01 See_Comment [Auto mated = 2311734564) message] The system which generated this result transmit courtney reference range : 10*3/?L. The reference range was not used to interpret this result as normal/abnormal . GRAN MAT (NEUT) % 86.7 % (test code = 770-8) IMM GRAN % (test code 0.40 % = 7949418322) LYMPH % (test code = 8.7 % 736-9) MONO % (test code = 3.8 % 5905-5) EOS % (test code = 0.1 % 713-8) BASO % (test code = 0.3 % 706-2) GRAN MAT x10^3(ANC) 11.82 10*3/uL 1.99-6.95 H (test code = 0425254739) IMM GRAN x10^3 (test 0.05 10*3/uL 0.00-0.06 code = 3661653127) LYMPH x10^3 (test code 1.18 10*3/uL 1.09-3.23 = 731-0) MONO x10^3 (test code 0.52 10*3/uL 0.36-1.02 = 742-7) EOS x10^3 (test code = <0.03 0.06-0.53 L 711-2) BASO x10^3 (test code 0.04 10*3/uL 0.01-0.09 = 704-7) Lab Interpretation Abnormal (test code = 05015-7) [facility]"
--- NOTE | 2023-02-17 10:29 | RAD REPORT ---
EXAM DESCRIPTION: US - Abdomen Exam Limited - 02/17/2023 10:02 am CLINICAL HISTORY: ABD PAIN COMPARISON: Abdomen Pelvis W Contrast dated 06/16/2021 TECHNIQUE: Sonographic grayscale and color flow images of the right upper abdominal quadrant were obtained. FINDINGS: The gallbladder demonstrates no gallstones. Small volume layering sludge. Thickened and ed ematous gallbladder wall, up to 1 centimeter, with wall hyperemia. Small volume pericholecystic fluid . The common bile duct is normal measuring 3 millimeter in caliber. The liver demonstrates no findings of intrahepatic biliary dilatation. IMPRESSION: Gallbladder wall thickening and hyperemia, raising concern for acute cholecystitis. Small volume sludge, without evidence of gallstones.
[2023-02-17] MEDS ORDERED: MAGNES/ALUMIN/SIMET 30ML UCUP ONE (10:48)
[2023-02-17] MEDS ORDERED: NA CHLORIDE 0.9% 1,000 ML ONE (10:49)
[2023-02-17] MEDS ORDERED: LIDOCAINE VISCOUS 2% SOLN 15 ML UDC ONE (10:49)
[2023-02-17] MEDS ORDERED: ONDANSETRON 4 MG/2 ML VIAL ONE (10:49)
[2023-02-17] MEDS ORDERED: MORPHINE 4 MG/ML SYR ONE (10:49)
[2023-02-17] MEDS ORDERED: FAMOTIDINE 20 MG/2 ML VIAL IV ONE (10:50)
[2023-02-17 11:15] LABS: Absolute Lymphocytes (CBC) 0.8 K/uL (0.7-4.9); Hematocrit 42.6 % (39.6-49.0); Lymphocytes % 11.2 % (15.3-44.8); MCV 88.6 fL (80-100); MPV 10.4 fL (7.6-11.3); RBC Red Blood Cell Count 4.81 M/uL (4.33-5.43)
[2023-02-17 11:31] LABS: Albumin 3.2 g/dL (3.4-5.0); Bilirubin Total 0.8 mg/dL (0.2-1.0); Potassium 3.6 mEq/L (3.5-5.1)
--- NOTE | 2023-02-17 12:16 | RAD REPORT ---
EXAM DESCRIPTION: CT - Abdomen Pelvis W Contrast - 02/17/2023 11:57 am CLINICAL HISTORY: Abd pain;Nausea / vomiting COMPARISON: Abdomen Pelvis W Contrast dated 06/16/2021; Abdomen Exam Limited dated 02/17/2023 TECHNIQUE: Thin cut axial CT imaging of the abdomen and pelvis was performed following intravenous a dministration of 100 mL Isovue 300. Multiplanar reformats were generated and reviewed. All CT scans are performed using dose optimization technique as appropriate and may include automated exposure control or mA/KV adjustment according to patient size. FINDINGS: No suspicious findings in the lung bases. The liver, spleen, and pancreas show no suspicious findings. Gallbladder and biliary tree are also wi thout suspicious finding. Gallbladder wall thickening and mucosal hyperenhancement. Other findings on ultrasound of the same da y were also suggestive of acute cholecystitis. Symmetric renal function is seen with no hydronephrosis or suspicious renal mass. No dilated bowel loops. Mild burden of colonic diverticula. Short segment of focal wall thickening al serge the proximal sigmoid colon, with adjacent fat stranding. No appreciable fluid collections Or disc rete extraluminal gas. No hernia, mass or bulky lymphadenopathy. The urinary bladder is without signi ficant finding. No suspicious bony findings. IMPRESSION: Acute proximal sigmoid diverticulitis. No evidence of complications. Gallbladder wall thickening and mucosal hyperenhancement. Other findings on ultrasound of the same da y were also suggestive of acute cholecystitis. The findings were communicated to Husam Figueroa on 02/17/2023 at 12:12 hours.
--- NOTE | 2023-02-17 12:25 | ER ---
Nurse's Notes [facility] Name: Bernard Irving Age: 52 yrs Sex: Male : 1970 Arrival Date: 02/17/2023 Time: 09:32 Bed 24 Private MD: Diagnosis: Acute cholecystitis;Diverticulitis of large intestine with perforation and abscess without bleeding Presentation: 02/17 09:53 Chief complaint: Patient states: he has been having nausea, vomiting and abdominal pain ap3 for approx 5 days. Coronavirus screen: At this time, the client does not indicate any symptoms associated with coronavirus-19. Ebola Screen: No symptoms or risks identified at this time. Initial Sepsis Screen: Does the patient meet any 2 criteria? No. Patient's initial sepsis screen is negative. Does the patient have a suspected source of infection? No. Patient's initial sepsis screen is negative. Risk Assessment: Do you want to hurt yourself or someone else? Patient reports no desire to harm self or others. Onset of symptoms was February 12, 2023. 09:53 Method Of Arrival: Ambulatory ap3 09:53 Acuity: ASH 3 ap3 Triage Assessment: 09:58 General: Appears uncomfortable, Behavior is calm, cooperative, appropriate for age. ap3 Pain: Complains of pain in abdomen Pain currently is 3 out of 10 on a pain scale. at worst was 6 out of 10 on a pain scale. Neuro: Level of Consciousness is awake, alert, obeys commands, Oriented to person, place, time, situation. GI: Reports lower abdominal pain, upper abdominal pain, nausea, vomiting. Historical: - Allergies: 09:56 No Known Allergies; ap3 - Home Meds: 09:56 None [Active]; ap3 - PMHx: 09:56 Diverticulitis; ap3 - Immunization history:: Client reports having NOT received the Covid vaccine. - Social history:: Smoking status: Patient denies any tobacco usage or history of. - Family history:: not pertinent. - Hospitalizations: : No recent hospitalization is reported. Screenin:57 [facility] ED Fall Risk Assessment (Adult) History of falling in the last 3 months, ap3 including since admission No falls in past 3 months (0 pts). Abuse screen: Denies threats or abuse. Nutritional screening: No deficits noted. Tuberculosis screening: No symptoms or risk factors identified. Assessment: 10:55 Reassessment: Patient appears in no apparent distress at this time. Patient and/or nj1 family updated on plan of care and expected duration. Pain level reassessed. Patient is alert, oriented x 3, equal unlabored respirations, skin warm/dry/pink. Pain: Complains of pain in abdomen Pain currently is 4 out of 10 on a pain scale. GI: Reports lower abdominal pain, upper abdominal pain, Patient currently denies nausea. 11:40 Reassessment: Patient appears in no apparent distress at this time. Patient and/or nj1 family updated on plan of care and expected duration. Pain level reassessed. Patient is alert, oriented x 3, equal unlabored respirations, skin warm/dry/pink. Patient states feeling better. Patient states symptoms have improved. Pain: Complains of pain in abdomen Pain currently is 2 out of 10 on a pain scale. 12:30 Reassessment: Patient appears in no apparent distress at this time. No changes from [facility] previously documented assessment. Patient and/or family updated on plan of care and expected duration. Pain level reassessed. Patient is alert, oriented x 3, equal unlabored respirations, skin warm/dry/pink. 13:30 Reassessment: Patient appears in no apparent distress at this time. No changes from nj1 previously documented assessment. Patient and/or family updated on plan of care and expected duration. Pain level reassessed. Patient is alert, oriented x 3, equal unlabored respirations, skin warm/dry/pink. Patient states feeling better. 14:30 Reassessment: Patient appears in no apparent distress at this time. Patient and/or nj1 family updated on plan of care and expected duration. Pain level reassessed. Patient is alert, oriented x 3, equal unlabored respirations, skin warm/dry/pink. Pain: Complains of pain in head Pain currently is 5 out of 10 on a pain scale. 15:30 Reassessment: Patient appears in no apparent distress at this time. No changes from nj1 previously documented assessment. Patient and/or family updated on plan of care and expected duration. Pain level reassessed. Patient is alert, oriented x 3, equal unlabored respirations, skin warm/dry/pink. 16:19 Reassessment: Patient appears in no apparent distress at this time. Patient and/or nj1 family updated on plan of care and expected duration. Pain level reassessed. Patient is alert, oriented x 3, equal unlabored respirations, skin warm/dry/pink. Pain: Complains of pain in abdomen Pain currently is 3 out of 10 on a pain scale. 16:19 Pain: Complains of pain in head Pain currently is 5 out of 10 on a pain scale. nj1 17:07 Reassessment: Patient appears in no apparent distress at this time. Patient and/or nj1 family updated on plan of care and expected duration. Pain level reassessed. Patient is alert, oriented x 3, equal unlabored respirations, skin warm/dry/pink. Patient denies pain at this time. 18:39 Reassessment: Patient appears in no apparent distress at this time. No changes from mo1 previously documented assessment. Patient and/or family updated on plan of care and expected duration. Pain level reassessed. Patient is alert, oriented x 3, equal unlabored respirations, skin warm/dry/pink. Patient denies pain at this time. Vital Signs: 09:53 BP 110 / 92; Pulse 102; Resp 18; Temp 98.4; Pulse Ox 100% ; Weight 79.38 kg; Pain 3/10; ap3 12:30 BP 123 / 81; Pulse 93; Resp 18; Pulse Ox 97% on R/A; Pain 2/10; nj1 13:30 BP 116 / 75; Pulse 84; Resp 17; Pulse Ox 99% ; Pain 2/10; nj1 14:30 BP 115 / 77; Pulse 81; Resp 17; Pulse Ox 99% ; nj1 15:30 BP 109 / 75; Pulse 82; Resp 16; Pulse Ox 99% ; nj1 16:19 BP 106 / 64; Pulse 91; Resp 16; Pulse Ox 100% ; nj1 17:07 BP 115 / 77; Pulse 83; Resp 16; Pulse Ox 96% on R/A; nj1 18:38 BP 124 / 80; Pulse 85; Resp 16; Temp 98.8; Pulse Ox 100% ; Pain 0/10; nj1 09:53 Pain Scale: Adult ap3 12:30 Pain Scale: Adult nj1 13:30 Pain Scale: Adult nj1 18:38 Pain Scale: Adult nj1 ED Course: 09:36 Patient arrived in ED. rg4 09:36 Husam Figueroa MD is Attending Physician. rn 09:55 Triage completed. ap3 09:57 Arm band placed on right wrist. ap3 10:04 US Abdomen Limited In Process Unspecified. EDMS 10:38 Zoila Dorado, ALISHA is Primary Nurse. nj1 10:55 Patient has correct armband on for positive identification. Bed in low position. Call nj1 light in reach. Side rails up X 1. 11:14 Inserted saline lock: 20 gauge in left antecubital area, using aseptic technique. Blood nj1 collected. 11:59 CT Abd/Pelvis - IV Contrast Only In Process Unspecified. EDMS 12:24 Clement Figueroa MD is Hospitalizing Provider. rn 18:36 No provider procedures requiring assistance completed. nj1 18:36 Patient admitted, IV remains in place. nj1 Administered Medications: 10:55 Drug: NS 0.9% IV 1000 ml Route: IV; Rate: 1 bolus; Site: left antecubital; nj1 11:40 Follow up: Response: No adverse reaction; IV Status: Completed infusion; IV Intake: nj1 1000ml 11:00 Drug: Ondansetron IVP 4 mg Route: IVP; Site: left antecubital; nj1 11:40 Follow up: Response: No adverse reaction nj1 11:02 Drug: morphine IVP or IV 4 mg Route: IVP; Infused Over: 4 mins; Site: left antecubital; nj1 11:40 Follow up: Response: No adverse reaction; Pain is decreased nj1 11:06 Drug: Famotidine IVP 20 mg Route: IVP; Site: left antecubital; nj1 11:40 Follow up: Response: No adverse reaction nj1 11:10 Drug: GI Cocktail without - (Maalox PO Suspension 30 ml, Lidocaine Mucous nj1 Membrane Liquid 2 % 15 ml) Route: PO; 11:40 Follow up: Response: No adverse reaction nj1 12:53 Drug: metroNIDAZOLE IVPB 500 mg Volume: 100 ml; Route: IVPB; Rate: 200 ml/hr; Infused nj1 Over: 30 mins; Site: left antecubital; 13:26 Follow up: Response: No adverse reaction; IV Status: Completed infusion; IV Intake: nj1 100ml 13:26 Drug: Ciprofloxacin IVPB 400 mg Volume: 200 ml; Route: IVPB; Infused Over: 60 mins; nj1 Site: left antecubital; 14:30 Follow up: Response: No adverse reaction; IV Status: Completed infusion; IV Intake: nj1 200ml 16:19 Drug: morphine IVP or IV 2 mg Route: IVP; Infused Over: 4 mins; Site: left antecubital; nj1 17:07 Follow up: Response: No adverse reaction; Pain is decreased nj1 Medication: 18:36 VIS not applicable for this client. nj1 Intake: 11:40 IV: 1000ml; Total: 1000ml. nj1 13:26 IV: 100ml; Total: 1100ml. nj1 14:30 IV: 200ml; Total: 1300ml. nj1 Outcome: 12:24 Decision to Hospitalize by Provider. rn 18:36 Admitted to Med/surg accompanied by tech, via wheelchair, room 214, Report called to nj1 Mireya Baer RN 18:36 Condition: stable 18:36 Instructed on the need for admit. 18:46 Patient left the ED. nj1 Signatures: Dispatcher [employer] EDMS Husam Figueroa MD MD rn Garcia, Rubi rg4 Amna Garcia RN RN ap3 Zoila Dorado RN RN nj1 Corrections: (The following items were deleted from the chart) 17:47 17:19 BP 115 / 77; Pulse 83bpm; Resp 16bpm; Pulse Ox 96% RA; nj1 nj 18:46 18:36 Admitted to Med/surg accompanied by tech, Report called to Mireya Baer RN nj nj
--- NOTE | 2023-02-17 12:25 | EDPHYS ---
Physician Documentation [facility] Name: Bernard Irving Age: 52 yrs Sex: Male : 1970 Arrival Date: 02/17/2023 Time: 09:32 Bed 24 Private MD: ED Physician Husam Figueroa HPI: 02/17 09:52 This 52 yrs old Male presents to ER via Unassigned with complaints of Vomiting, rn Abdominal Pain. 09:52 The patient presents to the emergency department with nausea, vomiting, diarrhea, rn abdominal pain. Onset: The symptoms/episode began/occurred 3 day(s) ago. Possible causes: unknown. The symptoms are aggravated by food , The symptoms are alleviated by nothing. Associated signs and symptoms: Pertinent positives: abdominal pain, diarrhea, nausea, vomiting, Pertinent negatives: fever, GI bleeding. Severity of symptoms: At their worst the symptoms were moderate in the emergency department the symptoms are unchanged. The patient has not experienced similar symptoms in the past. The patient has not recently seen a physician. Pt reports a few days of nausea/vomiting/diarrhea. No blood in stool. Reports problems with acid reflux and vomits almost daily with dry cough in AM. Recently placed on abx for dental infection, no longer taking abx. . Historical: - Allergies: 09:56 No Known Allergies; ap3 - Home Meds: 09:56 None [Active]; ap3 - PMHx: 09:56 Diverticulitis; ap3 - Immunization history:: Client reports having NOT received the Covid vaccine. - Social history:: Smoking status: Patient denies any tobacco usage or history of. - Family history:: not pertinent. - Hospitalizations: : No recent hospitalization is reported. ROS: 09:52 Constitutional: Negative for fever, chills, and weight loss, Eyes: Negative for injury, rn pain, redness, and discharge, Neck: Negative for injury, pain, and swelling, Cardiovascular: Negative for chest pain, palpitations, and edema, Respiratory: Negative for shortness of breath, cough, wheezing, and pleuritic chest pain, Abdomen/GI: + abd pain and nausea/vomiting/diarrhea Back: Negative for injury and pain, MS/Extremity: Negative for injury and deformity, Skin: Negative for injury, rash, and discoloration, Neuro: + generalized weakness Exam: 09:52 Constitutional: This is a well developed, well nourished patient who is awake, alert, rn and in no acute distress. Head/Face: Normocephalic, atraumatic. ENT: Dry MM Cardiovascular: Tachycardic, regular rhythm. No pulse deficits. Respiratory: No increased work of breathing, no retractions or nasal flaring. Abdomen/GI: Soft, no focal tenderness Skin: Warm, dry MS/ Extremity: Pulses equal, no cyanosis. Neuro: Awake and alert, GCS 15, normal gait Vital Signs: 09:53 BP 110 / 92; Pulse 102; Resp 18; Temp 98.4; Pulse Ox 100% ; Weight 79.38 kg; Pain 3/10; ap3 12:30 BP 123 / 81; Pulse 93; Resp 18; Pulse Ox 97% on R/A; Pain 2/10; nj1 13:30 BP 116 / 75; Pulse 84; Resp 17; Pulse Ox 99% ; Pain 2/10; nj1 14:30 BP 115 / 77; Pulse 81; Resp 17; Pulse Ox 99% ; nj1 15:30 BP 109 / 75; Pulse 82; Resp 16; Pulse Ox 99% ; nj1 16:19 BP 106 / 64; Pulse 91; Resp 16; Pulse Ox 100% ; nj1 17:07 BP 115 / 77; Pulse 83; Resp 16; Pulse Ox 96% on R/A; nj1 18:38 BP 124 / 80; Pulse 85; Resp 16; Temp 98.8; Pulse Ox 100% ; Pain 0/10; nj1 09:53 Pain Scale: Adult ap3 12:30 Pain Scale: Adult nj1 13:30 Pain Scale: Adult nj1 18:38 Pain Scale: Adult nj1 MDM: 09:36 Patient medically screened. rn 12:21 Differential diagnosis: Nonspecific abd pain, gastritis, cholecystitis, pancreatitis, rn appendicitis, diverticulitis, viral gastroenteritis, gastroenteritis. Data reviewed: vital signs, nurses notes, lab test result(s), radiologic studies, CT scan, ultrasound, and as a result, I will admit patient. Consideration of Admission/Observation Patient was admitted/placed on observation. Escalation of care including admission/observation considered. Counseling: I had a detailed discussion with the patient and/or guardian regarding: the historical points, exam findings, and any diagnostic results supporting the discharge/admit diagnosis, lab results, radiology results, the need for further work-up and treatment in the hospital. Response to treatment: the patient's symptoms have mildly improved after treatment, and as a result, I will admit patient. 02/17 09:45 Order name: CBC with Diff; Complete Time: 11:36 rn 02/17 09:45 Order name: CMP; Complete Time: 11:36 rn 02/17 09:45 Order name: Lipase; Complete Time: 11:36 rn 02/17 17:27 Order name: Creatine Phosphokinase [facility] 02/17 17:27 Order name: Magnesium [facility] 02/17 17:27 Order name: NT PRO-BNP [facility] 02/17 17:27 Order name: Phosphorus [facility] 02/17 17:28 Order name: Urinalysis w/ reflexes [facility] 02/17 17:28 Order name: Basic Metabolic Panel [facility] 02/17 17:28 Order name: Basic Metabolic Panel [facility] 02/17 17:28 Order name: CBC with Automated Diff [facility] 02/17 17:28 Order name: CBC with Automated Diff [facility] 02/17 09:45 Order name: CT Abd/Pelvis - IV Contrast Only; Complete Time: 12:20 rn 02/17 09:45 Order name: US Abdomen Limited; Complete Time: 10:33 rn 02/17 17:27 Order name: CONS Physician Consult [facility] 02/17 17:27 Order name: NPO [facility] 02/17 09:45 Order name: IV Saline Lock; Complete Time: 11:12 rn 02/17 09:45 Order name: Labs collected and sent; Complete Time: 11:12 rn 02/17 12:20 Order name: NPO; Complete Time: 12:26 rn Administered Medications: 10:55 Drug: NS 0.9% IV 1000 ml Route: IV; Rate: 1 bolus; Site: left antecubital; nj1 11:40 Follow up: Response: No adverse reaction; IV Status: Completed infusion; IV Intake: nj1 1000ml 11:00 Drug: Ondansetron IVP 4 mg Route: IVP; Site: left antecubital; nj1 11:40 Follow up: Response: No adverse reaction nj1 11:02 Drug: morphine IVP or IV 4 mg Route: IVP; Infused Over: 4 mins; Site: left antecubital; nj1 11:40 Follow up: Response: No adverse reaction; Pain is decreased nj1 11:06 Drug: Famotidine IVP 20 mg Route: IVP; Site: left antecubital; nj1 11:40 Follow up: Response: No adverse reaction nj1 11:10 Drug: GI Cocktail without - (Maalox PO Suspension 30 ml, Lidocaine Mucous nj1 Membrane Liquid 2 % 15 ml) Route: PO; 11:40 Follow up: Response: No adverse reaction nj1 12:53 Drug: metroNIDAZOLE IVPB 500 mg Volume: 100 ml; Route: IVPB; Rate: 200 ml/hr; Infused nj1 Over: 30 mins; Site: left antecubital; 13:26 Follow up: Response: No adverse reaction; IV Status: Completed infusion; IV Intake: nj1 100ml 13:26 Drug: Ciprofloxacin IVPB 400 mg Volume: 200 ml; Route: IVPB; Infused Over: 60 mins; nj1 Site: left antecubital; 14:30 Follow up: Response: No adverse reaction; IV Status: Completed infusion; IV Intake: nj1 200ml 16:19 Drug: morphine IVP or IV 2 mg Route: IVP; Infused Over: 4 mins; Site: left antecubital; nj1 17:07 Follow up: Response: No adverse reaction; Pain is decreased nj1 Disposition Summary: 02/17/23 12:24 Hospitalization Ordered Hospitalization Status: Inpatient Admission rn Provider: Clement Figueroa rn Location: Telemetry/[facility] (Inpatient) rn Condition: Stable rn Problem: new rn Symptoms: have improved rn Bed/Room Type: Standard rn Room Assignment: 214(02/17/23 18:02) kj1 Diagnosis - Acute cholecystitis rn - Diverticulitis of large intestine with perforation and abscess without bleeding internal consultant Instructions: - Discharge Summary Sheet rn Forms: - Medication Reconciliation Form rn - SBAR form rn Prescriptions: - Protonix 40 mg Oral Tablet - take 1 tablet by ORAL route once daily; 30 tablet; Refills: 0, Product rn Selection Permitted Signatures: Dispatcher [employer] EDMS Husam Figueroa MD MD rn Prokisch, Amanda, RN RN [id number] Jodi Camacho kj1 Zoila Dorado RN RN nj1 Corrections: (The following items were deleted from the chart) 09:55 09:52 Constitutional: This is a well developed, well nourished patient who is awake, rn alert, and in no acute distress. Head/Face: Normocephalic, atraumatic. ENT: Dry MM Cardiovascular: Regular rate and rhythm. No pulse deficits. Respiratory: No increased work of breathing, no retractions or nasal flaring. Abdomen/GI: Soft, no focal tenderness Skin: Warm, dry MS/ Extremity: Pulses equal, no cyanosis. Neuro: Awake and alert, GCS 15, normal gait rn 18:02 12:24 rn kj1
[2023-02-17] MEDS ORDERED: CIPROFLOXACIN 400mg IV 400 MG/200 ML BAG IV ONE (12:47)
[2023-02-17] MEDS ORDERED: METRONIDAZOLE 500mg IVPB 500 MG/100 ML BAG IV ONE (12:48)
[2023-02-17] MEDS ORDERED: MORPHINE 2 MG/ML SYR ONE (16:21)
[2023-02-17] MEDS ORDERED: ACETAMINOPHEN 650MG/RECT SUPP PR PRN (17:16)
[2023-02-17 18:46] LABS: Phosphorus 2.5 mg/dL (2.5-4.9)
--- NOTE | 2023-02-17 20:29 | P.HP ---
Certification for Inpatient Patient admitted to: Inpatient With expected LOS: >2 Midnights Patient will require the following post-hospital care: None Practitioner: I am a practitioner with admitting privileges, knowledge of patient current condition, hospital course, and medical plan of care. Services: Services provided to patient in accordance with Admission requirements found in Title 42 Section 412.3 of the Code of Federal Regulations Patient History Date of Service: 02/17/23 Reason for admission: Abdominal pain, diarrhea, nausea and vomiting History of Present Illness: Patient is a 52-year-old male with a past medical history significant for diverticulitis, GERD who presents with complaint of generalized abdominal pain, nausea, vomiting and diarrhea that has been ongoing for the past couple months but became worse in the last 3 days. Patient rated pain as 6/10 in severity and described pain as burning in quality. Patient reported associated signs and symptoms of headache and cough. Patient denies any other signs and symptoms. Symptoms are aggravated or relieved by nothing. Patient decided to present to the hospital due to worsening symptoms. Of note, patient reported that he has not been able to keep any p.o. intake down in the last 5 days. Allergies No Known Allergies Allergy (Unverified 02/17/23 19:56) - Past Medical/Surgical History Diabetic: No -: Diverticulitis -: GERD. Past Surgical History: Reviewed- Non-Contributory - Family History Family History: Reviewed- Non-Contributory - Social History Smoking Status: Never smoker Alcohol use: No CD- Drugs: No Caffeine use: No Place of Residence: Home Review of Systems General: Unremarkable Eyes: Unremarkable Respiratory: Cough Cardiovascular: Unremarkable Gastrointestinal: Nausea, Vomiting, Abdominal Pain, Diarrhea Musculoskeletal: Unremarkable Integumentary: Unremarkable Neurological: Other (Headache) Lymphatics: Unremarkable Physical Examination - Vital Signs Temperature: 98.4 F Blood Pressure: 123/81 Pulse: 93 Respirations: 18 - Physical Exam General: Alert, In no apparent distress, Oriented x1 HEENT: Atraumatic, PERRLA, Mucous membr. moist/pink, EOMI, Sclerae nonicteric Neck: Supple, 2+ carotid pulse no bruit, No LAD, Without JVD or thyroid abnormality Respiratory: Clear to auscultation bilaterally, Normal air movement Cardiovascular: No edema, Regular rate/rhythm, Normal S1 S2 Gastrointestinal: Normal bowel sounds, Tenderness Musculoskeletal: No clubbing, No swelling, No tenderness Integumentary: No rashes, No breakdown, No significant lesion Neurological: Normal gait, Normal speech, Normal tone, Normal affect Lymphatics: No axilla or inguinal lymphadenopathy - Studies Laboratory Data (last 24 hrs) 02/17/23 10:55: Sodium 133 L, Potassium 3.6, BUN 14, Creatinine 1.10, Glucose 117 H, Total Bilirubin 0.8, AST 53 H, ALT 91 H, Alkaline Phosphatase 130 H, Lipase 22 02/17/23 10:55: WBC 7.00, Hgb 14.2, Hct 42.6, Plt Count 109 L Assessment and Plan - Plan -- Acute diverticulitis\acute cholecystitis. Noted on imaging. Surgeon consul courtney. Patient placed on antibiotics. Continue IV hydration. We will await further recommendation from surgeon. --Acute pain. We will manage pain with current pain medication regimen. --GERD. Patient placed on IV Protonix. --Nausea and vomiting. Antiemetics on board. -- Diarrhea. Stool studies pending to rule out any infectious process. Continue antibiotics. --BRENDA. Likely prerenal secondary to dehydration. Continue IV hydration. We will continue to monitor renal functions. --Elevated LFTs. Unclear etiology. Gallbladder ultrasound does not indicate any evidence of choledocholithiasis. We will continue to monitor renal functions. --DVT prophylaxis with SCDs. Discharge Plan: Home Plan to discharge in: Greater than 2 days - Advance Directives Does patient have a Living Will: No Does patient have a Durable POA for Healthcare: No - Code Status/Comfort Care Code Status Assessed: Yes Physician Review: Patient Assessed, Agree with Above Assessment and Plan Critical Care: No
[2023-02-17] MEDS ORDERED: SODIUM CHLORIDE 0.9% 10ML INJ IV PRN (20:35)
[2023-02-17 21:01] VITALS: BMI 26.6
[2023-02-17] MEDS: PANTOPRAZOLE 40 MG INJ IVP SCH (21:02)
[2023-02-17] MEDS: NA CHLORIDE 0.9% 1,000 ML IV SCH (21:02)
[2023-02-18] MEDS: CIPROFLOXACIN 400mg IV 400 MG/200 ML BAG IV SCH ×3 (00:05→20:44)
[2023-02-18] MEDS: METRONIDAZOLE 500mg IVPB 500 MG/100 ML BAG IV SCH ×3 (01:21→16:21)
[2023-02-18 03:43] LABS: Hematocrit 36.9 % (39.6-49.0); Lymphocytes % 19.4 % (15.3-44.8); MPV 11.6 fL (7.6-11.3); RBC Red Blood Cell Count 4.14 M/uL (4.33-5.43)
[2023-02-18 04:01] LABS: Albumin 2.7 g/dL (3.4-5.0); Bilirubin Total 0.5 mg/dL (0.2-1.0); Potassium 3.5 mEq/L (3.5-5.1); Protein, Total 6.2 g/dL (6.4-8.2)
[2023-02-18] MEDS: NA CHLORIDE 0.9% 1,000 ML IV SCH ×2 (05:58→22:48)
[2023-02-18 06:25] LABS: Blood Morphology Comment NOT SEEN (NOT SEEN); Platelet Estimate DECR; White Blood Cell Scan OK (OK)
--- NOTE | 2023-02-18 06:56 | P.PN ---
Date of Service: 02/18/23 Subjective: feeling alright, pain improving abdomen feels more tender today afebrile waiting for surgery ROS: 10 point ROS as noted above, otherwise negative Physical Exam: GEN: Alert, oriented, NAD HEENT: Normal conjunctiva, sclera anicteric CV: Regular rate and rhythm, no edema Pulm: Nonlabored respirations on room air ABD: Soft, moderate abdominal tenderness, nondistended Neuro: Normal speech, normal affect vitals reviewed Problem List: Acute diverticulitis\acute cholecystitis GERD Nausea and vomiting Diarrhea BRENDA Elevated LFTs Acute diverticulitis\acute cholecystitis Abdomen CT & u/s: Acute diverticulitis \ acute cholecystitis General surgery consulted NPO for lap griselda 02/[address] Hays continue antibiotics continue IVF Pain medication as needed GERD continue IV Protonix Nausea and vomiting Diarrhea continue antiemetics Stool studies pending BRENDA Likely prerenal secondary to dehydration. IVF continue to monitor renal function Improved Elevated LFTs Unclear etiology. Gallbladder ultrasound does not indicate any evidence of choledocholithiasis VTE: SCD Code: Full Dispo: Home 2- days
[2023-02-18] MEDS: PANTOPRAZOLE 40 MG INJ IVP SCH (08:01)
[2023-02-18] MEDS ORDERED: KCL 20 MEQ/100 mL IVPB 20 MEQ/100 ML BAG IV SCH (09:00)
[2023-02-18] MEDS ORDERED: Ringers Lactate 1,000 ML IV ONE (11:10)
[2023-02-18] MEDS ORDERED: propofoL 200 MG/20 ML VIAL IV ONE (11:27)
[2023-02-18] MEDS ORDERED: FENTANYL CITR 100 MCG/2 ML ONE ×2 (11:28→12:06)
[2023-02-18] MEDS ORDERED: MIDAZOLAM HCL 2 MG/2 ML INJ ONE (11:28)
[2023-02-18] MEDS ORDERED: ROCURONIUM 50 MG/5 ML VIAL IV ONE (11:28)
[2023-02-18] MEDS ORDERED: LIDOCAINE 2% MPF 5 ML VIAL ONE (11:28)
[2023-02-18] MEDS ORDERED: ONDANSETRON 4 MG/2 ML VIAL ONE (11:35)
[2023-02-18] MEDS ORDERED: NS 0.9% VIAL 20 ML ONE (11:50)
[2023-02-18] MEDS ORDERED: Phenylephrine HCl 10 MG/ML 1 ML VIAL ONE (11:50)
[2023-02-18] MEDS: BUPIVACAINE 0.25% PF 30 ML VIAL ONE ×2 (11:58→12:04)
[2023-02-18] MEDS ORDERED: GLYCOPYRROLATE 0.2 MG/ML SYR ONE (12:30)
[2023-02-18] MEDS ORDERED: NEOSTIGMINE 1 MG/ML -10 ML VIAL ONE (12:31)
--- NOTE | 2023-02-18 12:36 | P.OP ---
Preoperative diagnosis: Acute Cholecystitis Postoperative diagnosis: Acute Cholecystitis Primary procedure: Laparoscopic Cholecystectomy with ICG Cholangiography Anesthesia: GETA + Local Estimated blood loss: <5cc Specimen: Gallbladder Findings: posterior branch of cystic artery, short cystic duct, hydrops Complications: None Transferred to: Recovery Room Condition: Good
[2023-02-18] MEDS: HYDROMORPHONE HCL 1 MG/ML INJ ONE ×2 (13:20→13:25)
[2023-02-18] MEDS ORDERED: POTASSIUM CL SA 10 MEQ TAB PO ONE (14:00)
[2023-02-18] MEDS: MORPHINE 4 MG/ML SYR IV PRN ×2 (16:21→19:40)
[2023-02-18 22:10] VITALS: O2SAT 97
[2023-02-18] MEDS: HYDROCODONE/APAP 5/325 MG TAB PO PRN (22:48)
[2023-02-18] MEDS: ONDANSETRON 4 MG/2 ML VIAL IV PRN (22:49)
--- NOTE | 2023-02-18 23:07 | OP ---
Date of Procedure: 02/18/2023 Surgeon: Geronimo Hays MD, Preoperative Diagnosis: Acute cholecystitis. Postoperative Diagnosis: Acute cholecystitis. Procedure Performed: Laparoscopic cholecystectomy with ICG (indocyanine green) cholangiography. Anesthesia: General endotracheal local with 0.25% Marcaine. Estimated Blood Loss: Less than 10 cc. Specimen: Gallbladder. Findings: There was a posterior branch of the cystic artery and a short cystic duct and there was hy dropic appearance of the gallbladder with significant inflammatory changes. Complications: None. The patient was transferred to recovery room in good condition. Procedure In Detail: After informed consent was obtained, the patient was brought to the operating r oom and prepped and draped in the usual sterile fashion. After adequate anesthesia was achieved, a s upraumbilical area was anesthetized with 0.25% Marcaine and sharply incised. 5 mm trocar was placed under direct visualization without evidence of any complication. Insufflation was obtained to 15 mmH g at this time. There was no injury to vital structure upon entry into the abdomen. At this point, I placed 2 additional trocars, one in the epigastrium and one in the right upper quadrant, both of th latrice were 5 mm trocars placed under direct visualization without evidence of any complication. The um bilical trocar site was then upsized to a 12 mm under direct visualization without evidence of any co mplication. The ratcheted grasper was used to grasp the patient's gallbladder, which was found to be hydropic and somewhat difficult to manage, however, I was able to electromechanical technician it and place towards the miguel angel ent's right shoulder and dissection continued down near the Kishor's pouch of the gallbladder after the patient was positioned head up and right-side up position. Dissection continued down to expose the structures entering the gallbladder and identified the cystic duct and cystic artery. The cystic artery had anterior and posterior branches, but it could be visualized at this point, and the critic al view of safety was obtained at this point, after clearance of the posterior alveolar tissue. At t his point, double titanium clips were placed doubly on the cystic duct and the anterior and posterior branches of the cystic artery and singly on the distal aspect of the above stated structures. I the n ligated the 2 structures using Endo Gini and removed the gallbladder off the hepatic fossa withou t incident or complication. The gallbladder was then placed in Endo Catch bag, removed through the u mbilical trocar and sent off for pathologic examination. I then copiously irrigated the patient's ab domen. There was minimal hemostatic measure required in the hepatic fossa with electrocautery, which was easily controlled at this point. Indocyanine green cholangiography was performed during the pro cedure just prior to placement of the clips and a critical view of safety being obtained. At this po int, I washed the patient's abdomen out. The effluent was clear. At this point, the patient was the n positioned back in a neutral position and the remaining effluent was suctioned out. The umbilical trocar site was closed using Juan-Darren suture passer with 0 Vicryl in an interrupted fashion wi th good approximation of tissues. The abdomen was completely desufflated under direct visualization without evidence of any complication. All remaining trocars were removed. All skin incisions were c opiously irrigated and closed with a 4-0 Monocryl in running fashion. Dermabond was placed over top. The patient tolerated procedure without evidence of any complication and transferred to PACU in goo d condition. All counts were correct at the end of the case. DESTINY/TYL Voice ID: [id number] Report ID: [id number]
[2023-02-19] MEDS: METRONIDAZOLE 500mg IVPB 500 MG/100 ML BAG IV SCH ×3 (01:23→16:33)
[2023-02-19] MEDS: MORPHINE 4 MG/ML SYR IV PRN (01:26)
[2023-02-19] MEDS: NA CHLORIDE 0.9% 1,000 ML IV SCH ×2 (03:00→12:51)
[2023-02-19 03:35] LABS: Absolute Lymphocytes (CBC) 1.3 K/uL (0.7-4.9); Hematocrit 35.9 % (39.6-49.0); Lymphocytes % 18.8 % (15.3-44.8); MCV 88.1 fL (80-100); MPV 10.7 fL (7.6-11.3); RBC Red Blood Cell Count 4.07 M/uL (4.33-5.43)
[2023-02-19 03:54] LABS: Albumin 2.6 g/dL (3.4-5.0); Bilirubin Total 0.4 mg/dL (0.2-1.0); Magnesium 1.7 mg/dL (1.6-2.4); Protein, Total 5.7 g/dL (6.4-8.2)
[2023-02-19] MEDS: HYDROCODONE/APAP 5/325 MG TAB PO PRN ×2 (06:00→12:51)
[2023-02-19] MEDS ORDERED: MAGNESIUM SULFATE 1 gm IVPB 1 GM/100 ML BAG IV ONE (06:00)
--- NOTE | 2023-02-19 07:35 | P.PN ---
Date of Service: 02/19/23 Subjective: Feeling fine after surgery, just a little sore 2 episodes of vomiting today no problems ambulating, +flatus no appetite ROS: 10 point ROS as noted above, otherwise negative Physical Exam: GEN: Alert, oriented, NAD HEENT: Normal conjunctiva, sclera anicteric CV: Regular rate and rhythm, no edema Pulm: Nonlabored respirations on room air ABD: Soft, moderate abdominal tenderness, nondistended Neuro: Normal speech, normal affect vitals reviewed Problem List: Acute diverticulitis\acute cholecystitis GERD Nausea and vomiting Diarrhea BRENDA Elevated LFTs Acute diverticulitis\acute cholecystitis Abdomen CT & u/s: Acute diverticulitis \ acute cholecystitis General surgery consulted lap griselda performed 02/[address] Hays continue antibiotics continue IVF Pain medication as needed GERD continue IV Protonix Nausea and vomiting Diarrhea continue antiemetics Stool studies pending BRENDA Likely prerenal secondary to dehydration. IVF continue to monitor renal function Improved Elevated LFTs Unclear etiology. Gallbladder ultrasound does not indicate any evidence of choledocholithiasis VTE: SCD Code: Full Dispo: Home 2-days
[2023-02-19] MEDS: PANTOPRAZOLE 40 MG INJ IVP SCH (08:07)
[2023-02-19] MEDS: CIPROFLOXACIN 400mg IV 400 MG/200 ML BAG IV SCH (08:13)
[2023-02-19] MEDS: ONDANSETRON 4 MG/2 ML VIAL IV PRN (11:45)
--- NOTE | 2023-02-19 13:19 | P.DS ---
Admission Date: 02/17/23 Discharge Date: 02/19/23 Disposition: ROUTINE DISCHARGE Discharge Condition: GOOD Reason for Admission: Abdominal pain, diarrhea, nausea and vomiting Consultations: General Surgery - Dr. Hays Brief History of Present Illness: 52yo M PMH: diverticulitis, GERD Patient presents with complaint of generalized abdominal pain, nausea, vomiting and diarrhea that has been ongoing for the past couple months but became worse in the last 3 days. Patient rated pain as 6/10 in severity and described pain as burning in quality. Patient reported associated signs and symptoms of heada concepcion and cough. Patient denies any other signs and symptoms. Symptoms are aggravated or relieved by nothing. Patient decided to present to the hospital due to worsening symptoms. Of note, patient reported that he has not been able to keep any p.o. intake down in the last 5 days. Hospital Course: Problem List: Acute diverticulitis\acute cholecystitis GERD Nausea and vomiting Diarrhea BRENDA Elevated LFTs Presented with abdominal pain. Found to have acute cholecystitis and focal sigmoid diverticulitis. Dr. Hays was consulted and patient underwent lap griselda. He had improvement of his symptoms and was tolerating a full liquid diet. He was deemed stable for discharge home. Ok to advance to low fat diet. Follow up with Dr. Hays in 1 week. 1 week of antibiotics were prescribed. Follow up with PCP within 1 week Physical Exam: GEN: Alert, oriented, NAD HEENT: Normal conjunctiva, sclera anicteric CV: Regular rate and rhythm, no edema Pulm: Nonlabored respirations on room air ABD: Soft, moderate abdominal tenderness, nondistended Neuro: Normal speech, normal affect Vital Signs/Physical Exam: Temp Pulse Resp BP Pulse Ox 98.1 F 84 16 117/74 95 02/19/23 12:00 02/19/23 12:00 02/19/23 12:00 02/19/23 12:00 02/19/23 12:51 Laboratory Data at Discharge: WBC 7.10 thou/uL (4.3-10.9) 02/19/23 03:05 Hgb 12.1 g/dL (13.6-17.9) L 02/19/23 03:05 Hct 35.9 % (39.6-49.0) L 02/19/23 03:05 Plt Count 91 thou/uL (152-406) L 02/19/23 03:05 Sodium 136 mEq/L (136-145) 02/19/23 03:05 Potassium 4.0 mEq/L (3.5-5.1) D 02/19/23 03:05 BUN 10 mg/dL (7-18) 02/19/23 03:05 Creatinine 0.85 mg/dL (0.70-1.30) 02/19/23 03:05 Glucose 105 mg/dL (74-106) 02/19/23 03:05 Phosphorus 2.5 mg/dL (2.5-4.9) 02/17/23 18:13 Magnesium 1.7 mg/dL (1.6-2.4) 02/19/23 03:05 Total Bilirubin 0.4 mg/dL (0.2-1.0) 02/19/23 03:05 AST 34 U/L (15-37) 02/19/23 03:05 ALT 60 U/L (16-61) 02/19/23 03:05 Alkaline Phosphatase 102 U/L (45-117) 02/19/23 03:05 Lipase 22 U/L (13-75) 02/17/23 10:55 Home Medications: Ciprofloxacin HCl 500 mg PO BID 7 Days #14 tab 02/19/23 Hydrocodone 5/APAP 325 [[place] 5/325] 1 tab PO Q8H PRN #10 tab 02/19/23 metroNIDAZOLE [Flagyl] 500 mg PO Q8H 7 Days #21 tab 02/19/23 ondansetron HCL [Ondansetron HCl] 4 mg PO Q8H PRN #10 tab 02/19/23 New Medications: Ciprofloxacin HCl 500 mg PO BID 7 Days #14 tab metroNIDAZOLE [Flagyl] 500 mg PO Q8H 7 Days #21 tab Hydrocodone 5/APAP 325 [[place] 5/325] 1 tab PO Q8H PRN #10 tab PRN Reason: Pain ondansetron HCL [Ondansetron HCl] 4 mg PO Q8H PRN #10 tab PRN Reason: Nausea / Vomiting Physician Discharge Instructions: Presented with abdominal pain. Found to have acute cholecystitis and focal sigmoid diverticulitis. Dr. Hays was consulted and patient underwent lap griselda. He had improvement of his symptoms and was tolerating a full liquid diet. He was deemed stable for discharge home. Ok to advance to low fat diet. Follow up with Dr. Hays in 1 week. 1 week of antibiotics were prescribed. Follow up with PCP within 1 week Followup: NONE,NONE [Primary Care Provider] - Time spent managing pt's care (in minutes): 45
[2023-02-19 17:16] VITALS: BP 120/70; TEMP 98.4
== END 2023-02-19 17:16 | disposition home or self-care (01) | DRG 418 ==
LOC: ER 09:32 → ERHOLD 17:15 → 2ND 18:37
PROVIDERS: ADMIT Hospitalist; ATTEND Hospitalist
PROC: BF121ZZ Fluoroscopy of Gallbladder using Low Osmolar Contrast (ICD-10-PCS; 2023-02-18)
PROC: 0FT44ZZ Resection of Gallbladder, Percutaneous Endoscopic Approach (ICD-10-PCS; principal; 2023-02-18 12:00)
DX: K81.0 Acute cholecystitis (principal); K57.20 Diverticulitis of large intestine with perforation and abscess without bleeding; N17.9 Acute kidney failure, unspecified; K21.9 Gastro-esophageal reflux disease without esophagitis; E86.0 Dehydration; R19.7 Diarrhea, unspecified; R79.89 Other specified abnormal findings of blood chemistry; Z28.310 Unvaccinated for COVID-19; Z79.899 Other long term (current) drug therapy
CPT/HCPCS: 36415; 74177; 76705; 80053; 82550; 83690; 83735; 83880; 84100; 85025; 88304; 96361; 96365; 96367; 96375; 99285; A4216; C9113; J0744; J1170; J2001; J2250; J2270; J2370; J2405; J2704; J2710; J3010; J3475; J3480; J7030; J7120; Q9967

== ENCOUNTER 2023-03-24 06:45 | Emergency (ER) | payer SELFPAY ==
--- OUTSIDE RECORDS SUMMARY | 2023-03-24 06:48 | XMS REPORT | Continuity of Care Document ---
:1970 Author Organization [facility] t Address [address] [place] [address] Care Team Providers Name Role Phone PCP, PATIENT DOES NOT HAVE A Primary Care Physician Unavaila ble Jesus Sanchez Attending Clinician Jesus DEE Attending Clinician Unavailable Doctor Unassigned, [place] Attending Clinician Unavailable Nadeem [place] MD Attending [...] Added automatic ally from request for surgery [id number] Allergies, Adverse Reactions, Alerts Allergy Allergy Status Severity Reaction(s) Onset Inactive Treating Comm ents Source Name Type Date Date Clinician NO KNOWN Drug Active [facility] ALLERGIE Class ity of [facility] Social History Social Habit Start Date Stop Date Quantity Comments Source History SDOH University o f Alcohol Frequency [place] [facility] History SDOH University o f Alcohol Std [place] [facility] Drinks [facility] History SDOH University o f Alcohol Binge [place] [facility] Exposure to 2022-03-14 2022-03-24 Unable to assess Univers ity of SARS-CoV-2 00:00:00 15:58:00 [facility] (event) Branch Alcohol intake 2019-03-03 2019-03-03 Current drinker Unive rsity of 00:00:00 00:00:00 of alcohol [facility] (finding) Branch Tobacco use and 2018-11-10 2018-11-10 Never used Universit y of exposure 00:00:00 00:00:00 [facility] Alcohol Comment 2018-11-10 2018-11-10 socially Universit y of 00:00:00 00:00:00 [facility] Sex Assigned At [birth year] Univers[facility] 00:00:00 00:00:00 [facility] Smoking Status Start Date Stop Date Source Never smoker [facility] Medications Ordered Filled Start Stop Current Ordering [...] 03/24/22 at 1915, CHRISTOPHER iopamidol 2021- No [id number] 75mL 75 mL, Univers (ISOVUE 03-24-30 Intravenou [...] Branch 03/24/22 at 1730, CHRISTOPHER ondansetron Yes [id number] 4mg Take 1 Univers (ZOFRAN) 4 5-30 tablet by ity of mg tablet 00:00: mouth [place] 00 every 8 Medical (eight) Branch hours as needed for Nausea and Vomiting (N/V). famotidine Yes [id number] 40mg Take 1 Univers (PEPCID) 40 5-30 tablet by ity of mg tablet 00:00: mouth [place] 00 daily. Medical Branch proMETHazin Yes [id number] 25mg Take 1 Univers e 25 mg 4-26 tablet by ity of tablet 00:00: mouth [place] 00 every 6 Medical (six) Branch hours as needed for Nausea and Vomiting (N/V). pantoprazol 2020-0 Yes [id number] 40mg Take 1 Univers e 40 mg EC 4-26 tablet by ity of tablet 00:00: mouth daily. Medical Branch proMETHazin 2020-0 Yes [id number] 25mg Take 1 Univers e 25 mg 4-26 tablet by ity of tablet 00:00: mouth [place] 00 every 6 Medical (six) Branch hours as needed for Nausea and Vomiting (N/V). pantoprazol 2020-0 Yes [id number] 40mg Take 1 Univers e 40 mg EC 4-26 tablet by ity of tablet 00:00: mouth daily. Medical Branch Capsaicin 2020-0 Yes [id number] Apply to Univers 0.025 % 4-24 area(s) as ity of PtMd 00:00: needed for Nausea and Medical Vomiting Branch (N/V). dicyclomine 0 Yes [id number] 10mg Take 1 Univers 10 mg 4-24 capsule by ity of capsule 00:00: mouth every 8 Medical (eight) Branch hours as needed for Abdominal pain. ondansetron 0 Yes [id number] 4mg Take 1 Univers 4 mg 4-24 tablet by ity of disintegrat 00:00: mouth [place] ing tablet 00 every 8 Medica l (eight) Branch hours as needed for Nausea and Vomiting (N/V). Capsaicin 2020-0 Yes [id number] Apply to Univers 0.025 % 4-24 area(s) as ity of PtMd 00:00: needed for Nausea and Medical Vomiting Branch (N/V). dicyclomine 0 Yes [id number] 10mg Take 1 Univers 10 mg 4-24 capsule by ity of capsule 00:00: mouth every 8 Medical (eight) Branch hours as needed for Abdominal pain. ondansetron 0 Yes [id number] 4mg Take 1 Univers 4 mg 4-24 tablet by ity of disintegrat 00:00: mouth [place] ing tablet 00 every 8 Medica l (eight) Branch hours as needed for Nausea and Vomiting (N/V). sucralfate 2018-0 Yes [id number] 1000mg Take 10 mL Univers (CARAFATE) 5-09 by mouth ity o f 100 mg/mL 00:00: before [place] suspension 00 meals and Medi jhonatan at Branch bedtime. benzonatate 2019-0 Yes [id number] 100mg Take 1 Univers 100 mg 5-09 capsule by ity of capsule 00:00: mouth 3 (three) Medical times Branch daily as needed for Cough. sucralfate 2019-0 Yes [id number] 1000mg Take 10 mL Univers (CARAFATE) 5-09 by mouth ity o f 100 mg/mL 00:00: before [place] suspension 00 meals and [facility] at Branch bedtime. benzonatate 2019-0 Yes [id number] 100mg Take 1 Univers 100 mg 5-09 capsule by ity of capsule 00:00: mouth 3 (three) Medical times Branch daily as needed for Cough. ciprofloxac 2019-0 Yes [id number] 500mg Take 1 Univers in HCl 500 5-03 tablet by ity of mg tablet 00:00: mouth 2 (two) Medical times Branch daily. proMETHazin 2019-0 Yes [id number] 25mg Take 1 Univers e 25 mg 5-03 tablet by ity of tablet 00:00: mouth [place] every 6 Medical (six) Branch hours as needed for Nausea and Vomiting (N/V). ciprofloxac 2019-0 Yes [id number] 500mg Take 1 Univers in HCl 500 5-03 tablet by ity of mg tablet 00:00: mouth 2 (two) Medical times Branch daily. proMETHazin 2019-0 Yes [id number] 25mg Take 1 Univers e 25 mg 5-03 tablet by ity of tablet 00:00: mouth [place] every 6 Medical (six) Branch hours as needed for Nausea and Vomiting (N/V). ciprofloxac 2019-0 Yes [id number] 500mg Take 1 Univers in HCl 500 1-23 tablet by ity of mg tablet 00:00: mouth 2 (two) Medical times Branch daily. ciprofloxac 2019-0 Yes [id number] 500mg Take 1 Univers in HCl 500 1-23 tablet by ity of mg tablet 00:00: mouth 2 [place] (two) Medical times Branch daily. Vital Signs Vital Name Observation Time Observation Value Comments Source Respiratory rate 2022-03-25 01:46:00 20 /min [facility] Oxygen saturation in 2022-03-25 01:46:00 96 /min [facility] blood by [facility] Pulse oximetry Branch Systolic blood 2022-03-25 01:46:00 110 [facility]Hg[facility] Diastolic blood 2022-03-25 01:46:00 69 mm[Hg] [facility] Heart rate 2022-03-25 01:46:00 67 /min [facility] Body temperature 2022-03-25 01:46:00 37.28 Shivani [facility] Body height 2022-03-24 21:08:00 172.7 cm [facility] Body weight 2022-03-24 21:08:00 81.647 kg [facility] BMI 2022-03-24 21:08:00 27.37 kg/m2 [facility] Procedures Procedure Date / Time Performed Performing Clinician Ede e CT ABDOMEN PELVIS W 2022-03-24 23:24:00 Jesus Dee [facility] CONTRAST [facility] URINALYSIS 2022-03-24 22:46:00 Jesus Dee [facility] LIPASE 2022-03-24 22:11:00 Carlos A, [facility] MAGNESIUM 2022-03-24 22:11:00 Carlos A, [facility] TROPONIN I 2022-03-24 22:11:00 Carlos A, [facility] COMP. METABOLIC PANEL 2022-03-24 22:11:00 Jesus Dee [facility] ([id number]) [facility] CBC WITH DIFF 2022-03-24 22:11:00 Carlos A, [facility] ASSIGNMENT OF BENEFITS 2022-03-24 21:55:11 Doctor Unassigned, No [facility] Medical [place] NOTICE OF PRIVACY 2022-03-24 20:57:45 Doctor Unassigned, No [facility] CONSENT/REFUSAL FOR 2022-03-24 20:57:17 Doctor Unassigned, No [facility] DIAGNOSIS AND [facility] Medical Branch TREATMENT Encounters Start End Encounter Admission Attending Care Care Encounter Source Date/Time Date/Time Type Type Clinicians Facility Department ID 2022-03-24 2022-03-24 Emergency Jesus Dee [facility] [id number] Univers 16:10:00 22:02:00 Maritza GANT 350.1.13.10 i ty of DE BERRY 4.2.7.2.686 [facility] [id number] [facility] 084 [place] 2022-03-24 2022-03-24 Emergency X Jesus DEE [facility] ERT [id number] Univers 16:10:00 22:02:00 ity [facility] 2022-03-24 2022-03-24 Orders Doctor ROGERS [id number] Univers 00:00:00 00:00:00 Only Unassigned, UMER [id number] ity [facility] 4.2.7.2.686 [facility] [id number] [facility] 009 Branch 2021-02-18 2021-02-18 [facility] [id number] 13:21:00 16:27:00 Nadeem Stalin 350.1.13.10 [place] 4.2.7.2.686 [place] [id number] [facility] 2021-02-18 2021-02-18 Emergency X [facility] ERT [id number] Univers 13:15:00 13:15:00 ity [facility] 2021-02-16 2021-02-17 Emergency Resendez, [facility] [id number] 21:09:00 00:08:00 Johnathan Gant 350.1.13.10 [place] 4.2.7.2.686 [place] [id number] [facility] 2021-02-16 2021-02-16 Emergency X [facility] ERT [id number] Univers 21:03:00 [facility]:03[facility] Results Test Description Test Time Test Comments Results Result Comments Source TROPONIN I 2022-03-24 22:56:15 Test Item Value Reference Range Interpretation Comme nts TROPONIN I (test code = <0.012 See_Comment [Au tomated message] The 4121320785) system which ge nerated this result tra [...] biotin. Lab Interpretation Normal (test code = 17704-8) [facility] 22:44:57 Test Item Value Reference Range Interpretation Comments MAGNESIUM (test code = 7128243313) 1.9 mg/dL 1.7-2.4 Lab Interpretation (test code = Normal 28324-7) [facility] ([id number])2022-03-24 22:44:37 Test Item Value Reference Range Interpretation Comments NA (test code = 142 mmol/L 135-145 7516062416) K (test code = 4.6 mmol/L 3.5-5.0 9285072748) CL (test code = 104 mmol/L 98-108 2851093436) CO2 TOTAL (test code = 24 mmol/L 23-31 6920226762) AGAP (test code = 2-16 9099293660) BUN (test code = 13 mg/dL 7-23 4176205751) GLUCOSE (test code = 130 mg/dL 70-110 H 4614500943) CREATININE (test code = 0.93 mg/dL 0.60-1.25 5016171625) TOTAL BILI (test code = 0.5 mg/dL 0.1-1.9 3420396120) CALCIUM (test code = 9.6 mg/dL 8.6-10.6 8850988058) T PROTEIN (test code = 7.6 g/dL 6.3-8.2 6473990906) ALBUMIN (test code = 4.8 g/dL 3.5-5.0 1803197990) ALK PHOS (test code = 63 U/L 34-122 9542669256) ALTv (test code = 16 U/L 5-50 1742-6) AST(SGOT) (test code = 21 U/L 13-40 5716096642) eGFR (test code = mL/min/1.73m2 3510552524) KALI (test code = KALI) Association of [...] tests). Lab Interpretation Abnormal (test code = 10345-9) [facility] 22:44:37 Test Item Value Reference Range Interpretation Comments LIPASE (test code = 5233258976) 138 U/L 0-220 Lab Interpretation (test code = Normal 92388-4) [facility] WITH [id number] 22:30:54 Test Item Value Reference Range Interpretation Comments WBC (test code = See_Comment H [Automated 6790-2) message] The system which generated this result [...] RDW-SD (test code = 39.8 fL 38.5-51.6 41879-8) RDW-CV (test code = 12.1 % 12.1-15.4 788-0) PLT (test code = See_Comment [Automated 777-3) message] The system which generated this result transmit courtney reference range : 150 - 328 10*3/ ?L. The reference range was not u sed to interpret th is result as normal/abnormal . MPV (test code = 12.0 fL 9.8-13.0 27432-5) NRBC/100 WBC (test See_Comment [Automat ed code = 5969128021) message] The system which generated this result transmit courtney reference range : 0.0 - 10.0 /100 WBCs. The reference range was not used to interpret this result as normal/abnormal . NRBC x10^3 (test code <0.01 See_Comment [Auto mated = 6614980779) message] The system which generated this result transmit courtney reference range : 10*3/?L. The reference range was not used to interpret this result as normal/abnormal . GRAN MAT (NEUT) % 86.7 % (test code = 770-8) IMM GRAN % (test code 0.40 % = 6970857179) LYMPH % (test code = 8.7 % 736-9) MONO % (test code = 3.8 % 5905-5) EOS % (test code = 0.1 % 713-8) BASO % (test code = 0.3 % 706-2) GRAN MAT x10^3(ANC) 11.82 10*3/uL 1.99-6.95 H (test code = 9756626117) IMM GRAN x10^3 (test 0.05 10*3/uL 0.00-0.06 code = 3747941293) LYMPH x10^3 (test code 1.18 10*3/uL 1.09-3.23 = 731-0) MONO x10^3 (test code 0.52 10*3/uL 0.36-1.02 = 742-7) EOS x10^3 (test code = <0.03 0.06-0.53 L 711-2) BASO x10^3 (test code 0.04 10*3/uL 0.01-0.09 = 704-7) Lab Interpretation Abnormal (test code = 01377-7) [facility]"
[2023-03-24] MEDS ORDERED: NA CHLORIDE 0.9% 1,000 ML ONE (07:27)
[2023-03-24] MEDS ORDERED: FAMOTIDINE 20 MG/2 ML VIAL IV ONE (07:27)
[2023-03-24] MEDS ORDERED: ONDANSETRON 4 MG/2 ML VIAL ONE (07:27)
[2023-03-24 07:43] LABS: SARS-CoV-2 Antigen Rapid Res Negative (Negative)
[2023-03-24 08:02] LABS: Absolute Lymphocytes (CBC) 1.5 K/uL (0.7-4.9); Hematocrit 41.6 % (39.6-49.0); Lymphocytes % 16.9 % (15.3-44.8); MCV 90.9 fL (80-100); MPV 9.9 fL (7.6-11.3); RBC Red Blood Cell Count 4.58 M/uL (4.33-5.43)
[2023-03-24 08:24] LABS: Albumin 3.9 g/dL (3.4-5.0); Bilirubin Total 0.9 mg/dL (0.2-1.0); Potassium 3.9 mEq/L (3.5-5.1); Protein, Total 7.3 g/dL (6.4-8.2)
--- NOTE | 2023-03-24 09:27 | RAD REPORT ---
EXAM DESCRIPTION: CT - Abdomen Pelvis W Contrast - 03/24/2023 8:38 am CLINICAL HISTORY: NAUSEA / VOMITING COMPARISON: Abdomen Pelvis W Contrast dated 02/17/2023; Abdomen Pelvis W Contrast dated 06/16/2021 TECHNIQUE: Thin cut axial CT imaging of the abdomen and pelvis was performed following intravenous a dministration of 100 mL Isovue 300. Multiplanar reformats were generated and reviewed. All CT scans are performed using dose optimization technique as appropriate and may include automated exposure control or mA/KV adjustment according to patient size. FINDINGS: No suspicious findings in the lung bases. The liver, spleen, and pancreas show no suspicious findings. Status post cholecystectomy. No inflamma tory changes or fluid collections are appreciated in the gallbladder resection bed. Symmetric renal function is seen with no hydronephrosis or suspicious renal mass. 2 millimeter left s uperior renal pole nonobstructing calculus. No dilated bowel loops. Mild sigmoid diverticulosis. Short segment of apparent wall thickening in the region of diverticulosis, could be related to nondistention, without adjacent inflammatory changes. No free air, free fluid or inflammatory stranding. No hernia, mass or bulky lymphadenopathy. The urin maria elena bladder is without significant finding. No suspicious bony findings. IMPRESSION: Nonobstructing left superior renal pole 2 millimeter calculus. Short segment of sigmoid diverticulosis with apparent wall thickening, could relate to nondistention or sequelae of prior a tags of diverticulitis. No other acute intra-abdominal process.
--- NOTE | 2023-03-24 10:21 | ER ---
Nurse's Notes [facility] Name: Bernard Irving Age: 52 yrs Sex: Male : 1970 Arrival Date: 03/24/2023 Time: 06:45 Bed 7 Private MD: Diagnosis: Nausea with vomiting, unspecified Presentation: 03/24 06:58 Chief complaint: Patient states: I had my gall bladder bladder removed 5 weeks ago and kd3 at that time they gave me antibiotics for diverticulitis and i went home and i had been feeling fine since but in the past 40 hours or so, I have had vomiting that has not stopped. Coronavirus screen: Vaccine status: Patient reports being unvaccinated. Ebola Screen: No symptoms or risks identified at this time. Initial Sepsis Screen: Does the patient meet any 2 criteria? No. Patient's initial sepsis screen is negative. Does the patient have a suspected source of infection? No. Patient's initial sepsis screen is negative. Risk Assessment: Do you want to hurt yourself or someone else? Patient reports no desire to harm self or others. Onset of symptoms was March 24, 2023. 06:58 Method Of Arrival: Ambulatory kd3 06:58 Acuity: ASH 3 kd3 Triage Assessment: 07:00 General: Appears uncomfortable, Behavior is calm, cooperative. Pain: Complains of pain kd3 in abdomen. GI: Reports upper abdominal pain, nausea, vomiting. Historical: - Allergies: 07:13 No Known Allergies; jl7 - Home Meds: 07:13 None [Active]; jl7 - PMHx: 07:00 Diverticulitis; kd3 - PSHx: 07:13 None; jl7 - Immunization history:: Adult Immunizations up to date. - Social history:: Smoking status: Patient denies any tobacco usage or history of. - Family history:: not pertinent. - Hospitalizations: : The patient was recently seen at [facility]. Screenin:36 [facility] ED Fall Risk Assessment (Adult) Score/Fall Risk Level 0 - 2 = Low Risk ll1 Oriented to surroundings, Maintained a safe environment, Educated pt \T\ family on fall prevention, incl call for assistance when getting out of bed, Hourly rounding (assess needs \T\ fall precautionary measures) done. Abuse screen: Denies threats or abuse. Nutritional screening: No deficits noted. Tuberculosis screening: No symptoms or risk factors identified. Assessment: 07:35 Reassessment: No changes from previously documented assessment. Patient and/or family ll1 updated on plan of care and expected duration. Pain level reassessed. Patient is alert, oriented x 3, equal unlabored respirations, skin warm/dry/pink. 07:44 Reassessment: No changes from previously documented assessment. Patient and/or family ll1 updated on plan of care and expected duration. Pain level reassessed. Patient states feeling better. 09:31 Reassessment: No changes from previously documented assessment. Patient and/or family ll1 updated on plan of care and expected duration. Pain level reassessed. Patient is alert, oriented x 3, equal unlabored respirations, skin warm/dry/pink. 10:49 GI: Abdomen is flat. ll1 Vital Signs: 06:58 BP 134 / 82; Pulse 74; Resp 19; Temp 98.1(O); Pulse Ox 100% on R/A; Weight 73.94 kg; kd3 Height 5 ft. 8 in. ; 09:31 BP 112 / 78; Pulse 87; Resp 16; Pulse Ox 98% ; ll1 10:49 BP 112 / 83; Pulse 82; Resp 16; Pulse Ox 98% ; Pain 0/10; ll1 06:58 Body Mass Index 24.78 (73.94 kg, 172.72 cm) kd3 10:49 Pain Scale: Adult ll1 ED Course: 06:47 Patient arrived in ED. ja2 06:57 uHsam Figueroa MD is Attending Physician. rn 07:00 Triage completed. kd3 07:00 Arm band placed on right wrist. kd3 07:08 Vilma Crump, RN is Primary Nurse. ll1 07:20 Missed attempt(s): 22 gauge in right antecubital area. x 2. Bleeding controlled, band ll1 aid applied, catheter tip intact. 07:20 Flu Sent. ll1 07:20 SARS RAPID Sent. ll1 07:25 Missed attempt(s): 22 gauge in right forearm. Bleeding controlled, band aid applied, jl7 catheter tip intact. 07:32 Inserted saline lock: 22 gauge in left forearm, using aseptic technique. jl7 07:36 Patient has correct armband on for positive identification. Bed in low position. Call ll1 light in reach. Client placed on continuous cardiac and pulse oximetry monitoring. NIBP monitoring applied. 08:40 CT Abd/Pelvis - IV Contrast Only In Process Unspecified. EDMS 10:49 No provider procedures requiring assistance completed. IV discontinued, intact, ll1 bleeding controlled, No redness/swelling at site. Pressure dressing applied. Administered Medications: 07:32 Drug: Famotidine IVP 20 mg Route: IVP; Site: left forearm; jl7 09:32 Follow up: Response: No adverse reaction ll1 07:33 Drug: NS 0.9% IV 1000 ml Route: IV; Rate: 1 bolus; Site: left forearm; jl7 09:32 Follow up: Response: No adverse reaction; IV Status: Completed infusion; IV Intake: ll1 1000ml 07:33 Drug: Ondansetron IVP 4 mg Route: IVP; Site: left forearm; jl7 09:32 Follow up: Response: No adverse reaction ll1 Medication: 07:36 VIS not applicable for this client. ll1 Intake: 09:32 IV: 1000ml; Total: 1000ml. ll1 Outcome: 10:21 Discharge ordered by . rn 10:49 Discharged to home ambulatory. ll1 10:49 Condition: stable 10:49 Discharge instructions given to patient, Instructed on discharge instructions, follow up and referral plans. Demonstrated understanding of instructions, follow-up care. 10:59 Patient left the ED. hb Signatures: Dispatcher [employer] EDMS Husam Figueroa MD MD rn Baxter, Heather, RN RN Jerome Rincon RN RN jl7 Vilma Crump RN RN ll1 Adilene Estrada Kyli RN RN kd3
--- NOTE | 2023-03-24 10:21 | EDPHYS ---
Physician Documentation [facility] Name: Bernard Irving Age: 52 yrs Sex: Male : 1970 Arrival Date: 03/24/2023 Time: 06:45 Bed 7 Private MD: ED Physician Husam Figueroa HPI: 03/24 07:17 This 52 yrs old Male presents to ER via Ambulatory with complaints of Nausea/Vomiting. rn 07:17 The patient presents to the emergency department with nausea, vomiting. Onset: The rn symptoms/episode began/occurred yesterday. Possible causes: unknown. The symptoms are aggravated by food , The symptoms are alleviated by nothing. Associated signs and symptoms: Pertinent positives: nausea, vomiting, Pertinent negatives: abdominal pain, fever, GI bleeding. Severity of symptoms: At their worst the symptoms were moderate in the emergency department the symptoms are unchanged. The patient has experienced similar episodes in the past. The patient has been recently been admitted at [facility]. Pt reports nausea/vomiting for 2 days, no abd pain, no fever, no chest pain, no GI bleeding. Pt had diverticulitis as well as cholecystitis 1 month ago, states pain free and symptom free for 3 weeks, was doing well and back to work. No sick contacts. . Historical: - Allergies: 07:13 No Known Allergies; jl7 - Home Meds: 07:13 None [Active]; jl7 - PMHx: 07:00 Diverticulitis; kd3 - PSHx: 07:13 None; jl7 - Immunization history:: Adult Immunizations up to date. - Social history:: Smoking status: Patient denies any tobacco usage or history of. - Family history:: not pertinent. - Hospitalizations: : The patient was recently seen at [facility]. ROS: 07:17 Constitutional: Negative for fever, chills, and weight loss, Eyes: Negative for injury, rn pain, redness, and discharge, Cardiovascular: Negative for chest pain, palpitations, and edema, Respiratory: Negative for shortness of breath, cough, wheezing, and pleuritic chest pain, Abdomen/GI: + nausea/vomiting Back: Negative for injury and pain, MS/Extremity: Negative for injury and deformity, Skin: Negative for injury, rash, and discoloration, Neuro: Negative for headache, weakness, numbness, tingling, and seizure. Exam: 07:17 Constitutional: This is a well developed, well nourished patient who is awake, alert, rn and in no acute distress. Head/Face: Normocephalic, atraumatic. ENT: dry MM Neck: No Meningismus. Cardiovascular: Regular rate and rhythm. No pulse deficits. Respiratory: No increased work of breathing, no retractions or nasal flaring. Abdomen/GI: Soft, non-tender Skin: Warm, dry MS/ Extremity: Pulses equal, no cyanosis. Neuro: Awake and alert, GCS 15 Vital Signs: 06:58 BP 134 / 82; Pulse 74; Resp 19; Temp 98.1(O); Pulse Ox 100% on R/A; Weight 73.94 kg; kd3 Height 5 ft. 8 in. ; 09:31 BP 112 / 78; Pulse 87; Resp 16; Pulse Ox 98% ; ll1 10:49 BP 112 / 83; Pulse 82; Resp 16; Pulse Ox 98% ; Pain 0/10; ll1 06:58 Body Mass Index 24.78 (73.94 kg, 172.72 cm) kd3 10:49 Pain Scale: Adult ll1 MDM: 06:57 Patient medically screened. rn 10:20 Differential diagnosis: gastritis, pancreatitis, appendicitis, diverticulitis, viral rn gastroenteritis, gastroenteritis. Data reviewed: vital signs, nurses notes, lab test result(s), radiologic studies, CT scan, and as a result, I will discharge patient. Counseling: I had a detailed discussion with the patient and/or guardian regarding: the historical points, exam findings, and any diagnostic results supporting the discharge/admit diagnosis, lab results, radiology results, the need for outpatient follow up, to return to the emergency department if symptoms worsen or persist or if there are any questions or concerns that arise at home. Response to treatment: the patient's symptoms have markedly improved after treatment, and as a result, I will discharge patient. Special discussion: I discussed with the patient/guardian in detail that at this point there is no indication for admission to the hospital. It is understood, however, that if the symptoms persist or worsen the patient needs to return immediately for re-evaluation. ED course: No acute findings in blood or ct abdomen/pelvis, notified of left renal stone, feels better, no longer vomiting, will dc home with return precautions, states still has about 20 pills of zofran left from last time.. 03/24 07:06 Order name: CBC with Diff; Complete Time: 08:17 rn 03/24 07:06 Order name: CMP; Complete Time: 08:49 rn 03/24 07:06 Order name: Lipase; Complete Time: 08:49 rn 03/24 07:06 Order name: Flu; Complete Time: 08:05 rn 03/24 07:06 Order name: SARS RAPID; Complete Time: 08:05 rn 03/24 07:06 Order name: CT Abd/Pelvis - IV Contrast Only; Complete Time: 09:50 rn 03/24 07:06 Order name: IV Saline Lock; Complete Time: 07:08 rn 03/24 07:06 Order name: Labs collected and sent; Complete Time: 07:08 rn 03/24 07:31 Order name: Labs - recollect needed: recollect lavender and green top; Complete Time: bd 07:36 Administered Medications: 07:32 Drug: Famotidine IVP 20 mg Route: IVP; Site: left forearm; jl7 09:32 Follow up: Response: No adverse reaction ll1 07:33 Drug: NS 0.9% IV 1000 ml Route: IV; Rate: 1 bolus; Site: left forearm; jl7 09:32 Follow up: Response: No adverse reaction; IV Status: Completed infusion; IV Intake: ll1 1000ml 07:33 Drug: Ondansetron IVP 4 mg Route: IVP; Site: left forearm; jl7 09:32 Follow up: Response: No adverse reaction ll1 Disposition Summary: 03/24/23 10:21 Discharge Ordered Location: Home rn Problem: new rn Symptoms: have improved rn Condition: Stable rn Diagnosis - Nausea with vomiting, unspecified rn Followup: rn - With: Private Physician - When: As needed - Reason: Recheck today's complaints, Re-evaluation by your physician Discharge Instructions: - Discharge Summary Sheet rn - Kidney Stones rn - Nausea and Vomiting, Adult rn - Dietary Guidelines to Help Prevent Kidney Stones rn Forms: - Medication Reconciliation Form rn - Thank You Letter rn - Antibiotic rn ent - Prescription Opioid Use rn - Work release form hb Signatures: Dispatcher [employer] EDMolly Marcus Roman, MD MD rn Leal, Jahala, RN RN [email or web address] Brynn Armenta, RN RN kd3 Vilma Crump RN ll1
[2023-03-24 11:14] VITALS: TEMP 98.1
[2023-03-24 11:24] VITALS: O2SAT 98
[2023-03-24 11:26] VITALS: BP 112/83
== END 2023-03-24 10:59 | disposition home or self-care (01) ==
LOC: ER 06:45
DX: R11.2 Nausea with vomiting, unspecified (principal)
CPT/HCPCS: 36415; 74177; 80053; 83690; 85025; 87804; 87811; 96361; 96374; 96375; 99284; J2405; J7030; Q9967

== ENCOUNTER 2023-06-18 09:51 | Emergency (ER) | payer SELFPAY ==
--- OUTSIDE RECORDS SUMMARY | 2023-06-18 09:55 | XMS REPORT | Continuity of Care Document ---
:1970 Author Organization [facility] t Address [address] [facility] [address] [place] [address] Care Team Providers Name Role Phone PCP, PATIENT DOES NOT HAVE A Primary Care Physician Unavaila ble Jesus Sanchez Attending Clinician Jesus DEE Attending Clinician Unavailable Doctor Unassigned, [place] Attending Clinician Unavailable Nadeem Grande MD Attending [...] Added automatic ally from request for surgery [id number] Allergies, Adverse Reactions, Alerts Allergy Allergy Status Severity Reaction(s) Onset Inactive Treating Comm ents Source Name Type Date Date Clinician NO KNOWN Drug Active Univers ALLERGIE Class ity of S [facility] Social History Social Habit Start Date Stop Date Quantity Comments Source History SDOH University o f Alcohol Frequency [place] [facility] History SDOH University o f Alcohol Std [place] [facility] Drinks Branch History SDOH University o f Alcohol Binge [place] [facility] al Branch Exposure to 2022-03-14 2022-03-24 Unable to assess Univers ity of SARS-CoV-2 00:00:00 15:58:00 [facility] (event) Branch Alcohol intake 2019-03-03 2019-03-03 Current drinker Unive rsity of 00:00:00 00:00:00 of alcohol [facility] (finding) Branch Tobacco use and 2018-11-10 2018-11-10 Never used Universit y of exposure 00:00:00 00:00:00 [facility] Alcohol Comment 2018-11-10 2018-11-10 socially Universit y of 00:00:00 00:00:00 [facility] Sex Assigned At [birth year] Universit y of 00:00:00 00:00:00 [facility] Smoking Status Start Date Stop Date Source Never smoker [facility] Medications Ordered Filled Start Stop Current Ordering Indication Dosage Frequency Signature Comments Components Source Medication Medication Date Date Medication? Clinician (SIG) Name Name ondansetron 2021- No 4mg 4 mg, Slow Univers (ZOFRAN 03-25- IV Push, ity of (PF)) 01:45: 00:53 ONCE, 1 [place] injection 4 00 :00 dose, On Medi jhonatan mg Mon Branch 03/24/22 at 2044, HCRISTOPHER NaCl 0.9% 2021- No 1000mL at 999 [...] 03/24/22 at 1915, CHRISTOPHER iopamidol 2021- No [id number] 75mL 75 mL, Univers (ISOVUE 03-24-30 Intravenou [...] Branch 03/24/22 at 1730, CHRISTOPHER ondansetron Yes [id number] 4mg Take 1 Univers (ZOFRAN) 4 5-30 tablet by ity of mg tablet 00:00: mouth [place] 00 every 8 Medical (eight) Branch hours as needed for Nausea and Vomiting (N/V). famotidine Yes [id number] 40mg Take 1 Univers (PEPCID) 40 5-30 tablet by ity of mg tablet 00:00: mouth [place] 00 daily. Medical Branch proMETHazin Yes [id number] 25mg Take 1 Univers e 25 mg 4-26 tablet by ity of tablet 00:00: mouth [place] 00 every 6 Medical (six) Branch hours as needed for Nausea and Vomiting (N/V). pantoprazol 2020-0 Yes [id number] 40mg Take 1 Univers e 40 mg EC 4-26 tablet by ity of tablet 00:00: mouth daily. Medical Branch proMETHazin 2020-0 Yes [id number] 25mg Take 1 Univers e 25 mg 4-26 tablet by ity of tablet 00:00: mouth [place] 00 every 6 Medical (six) Branch hours as needed for Nausea and Vomiting (N/V). pantoprazol 2020-0 Yes [id number] 40mg Take 1 Univers e 40 mg EC 4-26 tablet by ity of tablet 00:00: mouth daily. Medical Branch Capsaicin 2020-0 Yes [id number] Apply to Univers 0.025 % 4-24 area(s) as ity of PtMd 00:00: needed for Nausea and Medical Vomiting Branch (N/V). dicyclomine 0 Yes [id number] 10mg Take 1 Univers 10 mg 4-24 capsule by ity of capsule 00:00: mouth every 8 Medical (eight) Branch hours as needed for Abdominal pain. ondansetron 0 Yes [id number] 4mg Take 1 Univers 4 mg 4-24 tablet by ity of disintegrat 00:00: mouth [place] ing tablet 00 every 8 Medica l (eight) Branch hours as needed for Nausea and Vomiting (N/V). Capsaicin 2020-0 Yes [id number] Apply to Univers 0.025 % 4-24 area(s) as ity of PtMd 00:00: needed for Nausea and Medical Vomiting Branch (N/V). dicyclomine 0 Yes [id number] 10mg Take 1 Univers 10 mg 4-24 capsule by ity of capsule 00:00: mouth every 8 Medical (eight) Branch hours as needed for Abdominal pain. ondansetron 0 Yes [id number] 4mg Take 1 Univers 4 mg 4-24 tablet by ity of disintegrat 00:00: mouth [place] ing tablet 00 every 8 Medica l (eight) Branch hours as needed for Nausea and Vomiting (N/V). sucralfate 2018-0 Yes [id number] 1000mg Take 10 mL Univers (CARAFATE) 5-09 by mouth ity o f 100 mg/mL 00:00: before [place] suspension 00 meals and Medi jhonatan at Branch bedtime. benzonatate 2019-0 Yes [id number] 100mg Take 1 Univers 100 mg 5-09 capsule by ity of capsule 00:00: mouth 3 (three) Medical times Branch daily as needed for Cough. sucralfate 2019-0 Yes [id number] 1000mg Take 10 mL Univers (CARAFATE) 5-09 by mouth ity o f 100 mg/mL 00:00: before [place] suspension 00 meals and [facility] at Branch bedtime. benzonatate 2019-0 Yes [id number] 100mg Take 1 Univers 100 mg 5-09 capsule by ity of capsule 00:00: mouth 3 (three) Medical times Branch daily as needed for Cough. ciprofloxac 2019-0 Yes [id number] 500mg Take 1 Univers in HCl 500 5-03 tablet by ity of mg tablet 00:00: mouth 2 (two) Medical times Branch daily. proMETHazin 2019-0 Yes [id number] 25mg Take 1 Univers e 25 mg 5-03 tablet by ity of tablet 00:00: mouth [place] every 6 Medical (six) Branch hours as needed for Nausea and Vomiting (N/V). ciprofloxac 2019-0 Yes [id number] 500mg Take 1 Univers in HCl 500 5-03 tablet by ity of mg tablet 00:00: mouth 2 (two) Medical times Branch daily. proMETHazin 2019-0 Yes [id number] 25mg Take 1 Univers e 25 mg 5-03 tablet by ity of tablet 00:00: mouth [place] every 6 Medical (six) Branch hours as needed for Nausea and Vomiting (N/V). ciprofloxac 2019-0 Yes [id number] 500mg Take 1 Univers in HCl 500 1-23 tablet by ity of mg tablet 00:00: mouth 2 (two) Medical times Branch daily. ciprofloxac 2019-0 Yes [id number] 500mg Take 1 Univers in HCl 500 1-23 tablet by ity of mg tablet 00:00: mouth 2 [place] (two) Medical times Branch daily. Vital Signs Vital Name Observation Time Observation Value Comments Source Respiratory rate 2022-03-25 01:46:00 20 /min [facility] Oxygen saturation in 2022-03-25 01:46:00 96 /min [facility] blood by [facility] Pulse oximetry Branch Systolic blood 2022-03-25 01:46:00 110 mm[Hg] [facility] Diastolic blood 2022-03-25 01:46:00 69 mm[Hg] [facility] Heart rate 2022-03-25 01:46:00 67 /min [facility] Body temperature 2022-03-25 01:46:[address] [facility] Body height 2022-03-24 21:08:00 172.7 cm [facility] Body weight 2022-03-24 21:08:00 81.647 kg [facility] BMI 2022-03-24 21:08:00 27.37 kg/m2 [facility] Procedures Procedure Date / Time Performed Performing Clinician Ede e CT ABDOMEN PELVIS W 2022-03-24 23:24:00 Jesus Dee [facility] CONTRAST [facility] URINALYSIS 2022-03-24 22:46:00 Jesus Dee [facility] LIPASE 2022-03-24 22:11:00 Carlos A, [facility] MAGNESIUM 2022-03-24 22:11:00 Carlos A, [facility] TROPONIN I 2022-03-24 22:11:00 Carlos A, [facility] COMP. METABOLIC PANEL 2022-03-24 22:11:00 Jesus Dee [facility] ([id number]) [facility] CBC WITH DIFF 2022-03-24 22:11:00 Carlos A, [facility] ASSIGNMENT OF BENEFITS 2022-03-24 21:55:11 Doctor Unassigned, No [facility] Medical Sims NOTICE OF PRIVACY 2022-03-24 20:57:45 Doctor Unassigned, No [facility] CONSENT/REFUSAL FOR 2022-03-24 20:57:17 Doctor Unassigned, No [facility] DIAGNOSIS AND [facility] Medical Branch TREATMENT Encounters Start End Encounter Admission Attending Care Care Encounter Source Date/Time Date/Time Type Type Clinicians Facility Department ID 2022-03-24 2022-03-24 Emergency Jesus Dee [facility] [id number] Univers 16:10:00 22:02:00 Maritza GANT [id number] i ty of [place] [id number] [facility] [id number] [facility] 084 Sims 2022-03-24 2022-03-24 Emergency X Jesus DEE [facility] ERT [id number] Univers 16:10:00 22:02:00 ity [facility] [place] [facility] 2022-03-24 2022-03-24 Orders Doctor RGOERS [id number] Univers 00:00:00 00:00:00 Only Unassigned, UMER [id number] ity [facility] 4.2.7.2.686 [facility] [id number] [facility] 009 Branch 2021-02-18 2021-02-18 [facility] [id number] 13:21:00 16:27:00 Nadeem Stalin [id number] [place] 4.2.7.2.686 [place] [id number] [facility] 2021-02-18 2021-02-18 Emergency X [facility] ERT [id number] Univers 13:15:00 13:15:00 ity [facility] [place] [facility] 2021-02-16 2021-02-17 Emergency Resendez, [facility] [id number] 21:09:00 00:08:00 Johnathan Gant [id number] [place] 4.2.7.2.686 [place] [id number] [facility] 2021-02-16 2021-02-16 Emergency X [facility] ERT [id number] Univers 21:03:00 [facility] Test Description Test Time Test Comments Results Result Comments Source TROPONIN I 2022-03-24 22:56:15 Test Item Value Reference Range Interpretation Comme nts TROPONIN I (test code = <0.012 See_Comment [Au tomated message] The 4285076641) system which ge nerated this result tra [...] biotin. Lab Interpretation Normal (test code = 85792-9) [facility] 22:44:57 Test Item Value Reference Range Interpretation Comments MAGNESIUM (test code = 4430093111) 1.9 mg/dL 1.7-2.4 Lab Interpretation (test code = Normal 91325-6) [facility] PAN[facility] ([id number])2022-03-24 22:44:37 Test Item Value Reference Range Interpretation Comments NA (test code = 142 mmol/L 135-145 0410229797) K (test code = 4.6 mmol/L 3.5-5.0 3103898919) CL (test code = 104 mmol/L 98-108 0931823616) CO2 TOTAL (test code = 24 mmol/L 23-31 8824795182) AGAP (test code = 2-16 5525011477) BUN (test code = 13 mg/dL 7-23 9040226264) GLUCOSE (test code = 130 mg/dL 70-110 H 5500925489) CREATININE (test code = 0.93 mg/dL 0.60-1.25 1477504867) TOTAL BILI (test code = 0.5 mg/dL 0.1-1.2 7836811797) CALCIUM (test code = 9.6 mg/dL 8.6-10.6 3083620020) T PROTEIN (test code = 7.6 g/dL 6.3-8.2 0338538197) ALBUMIN (test code = 4.8 g/dL 3.5-5.0 9000144528) ALK PHOS (test code = 63 U/L 34-122 7831240922) ALTv (test code = 16 U/L 5-50 1742-6) AST(SGOT) (test code = 21 U/L 13-40 6206067050) eGFR (test code = mL/min/1.73m2 8736482235) KALI (test code = KALI) Association of [...] tests). Lab Interpretation Abnormal (test code = 78328-8) [facility] 22:44:37 Test Item Value Reference Range Interpretation Comments LIPASE (test code = 6424815572) 138 U/L 0-220 Lab Interpretation (test code = Normal 21629-7) [facility] WITH [id number] 22:30:54 Test Item Value Reference Range Interpretation Comments WBC (test code = See_Comment H [Automated 3990-2) message] The system which generated this result [...] RDW-SD (test code = 39.8 fL 38.5-51.6 52008-2) RDW-CV (test code = 12.1 % 12.1-15.4 788-0) PLT (test code = See_Comment [Automated 777-3) message] The system which generated this result transmit courtney reference range : 150 - 328 10*3/ ?L. The reference range was not u sed to interpret th is result as normal/abnormal . MPV (test code = 12.0 fL 9.8-13.0 17338-1) NRBC/100 WBC (test See_Comment [Automat ed code = 7127602104) message] The system which generated this result transmit courtney reference range : 0.0 - 10.0 /100 WBCs. The reference range was not used to interpret this result as normal/abnormal . NRBC x10^3 (test code <0.01 See_Comment [Auto mated = 1776282429) message] The system which generated this result transmit courtney reference range : 10*3/?L. The reference range was not used to interpret this result as normal/abnormal . GRAN MAT (NEUT) % 86.7 % (test code = 770-8) IMM GRAN % (test code 0.40 % = 2547397350) LYMPH % (test code = 8.7 % 736-9) MONO % (test code = 3.8 % 5905-5) EOS % (test code = 0.1 % 713-8) BASO % (test code = 0.3 % 706-2) GRAN MAT x10^3(ANC) 11.82 10*3/uL 1.99-6.95 H (test code = 1020956679) IMM GRAN x10^3 (test 0.05 10*3/uL 0.00-0.06 code = 6154120469) LYMPH x10^3 (test code 1.18 10*3/uL 1.09-3.23 = 731-0) MONO x10^3 (test code 0.52 10*3/uL 0.36-1.02 = 742-7) EOS x10^3 (test code = <0.03 0.06-0.53 L 711-2) BASO x10^3 (test code 0.04 10*3/uL 0.01-0.09 = 704-7) Lab Interpretation Abnormal (test code = 62932-3) [facility]"
[2023-06-18] MEDS ORDERED: NA CHLORIDE 0.9% 1,000 ML ONE ×2 (10:24→11:28)
[2023-06-18] MEDS ORDERED: FAMOTIDINE 20 MG/2 ML VIAL IV ONE (10:24)
[2023-06-18] MEDS ORDERED: ONDANSETRON 4 MG/2 ML VIAL ONE (10:24)
[2023-06-18 10:28] LABS: Absolute Lymphocytes (CBC) 1.6 K/uL (0.7-4.9); Hematocrit 46.2 % (39.6-49.0); Lymphocytes % 10.9 % (15.3-44.8); MCV 89.5 fL (80-100); MPV 9.6 fL (7.6-11.3); Platelets 211 thou/uL (152-406); RBC Red Blood Cell Count 5.17 M/uL (4.33-5.43)
[2023-06-18 10:47] LABS: Albumin 4.1 g/dL (3.4-5.0); Bilirubin Total 0.9 mg/dL (0.2-1.0); Potassium 3.4 mEq/L (3.5-5.1); Protein, Total 7.9 g/dL (6.4-8.2); Troponin High Sensitivity 10.9 pg/mL (<58.9)
--- NOTE | 2023-06-18 11:09 | RAD REPORT ---
EXAM DESCRIPTION: CTAbdomen Pelvis W Contrast - 06/18/2023 10:55 am CLINICAL HISTORY: Abdominal pain. ABD PAIN COMPARISON: Abdomen Pelvis W Contrast dated 03/24/2023; Abdomen Pelvis W Contrast dated 02/17/2023 ; Abdomen Pelvis W Contrast dated 06/16/2021 TECHNIQUE: Biphasic CT imaging of the abdomen and pelvis was performed with 100 ml non-ionic IV cont rast. All CT scans are performed using dose optimization technique as appropriate and may include automated exposure control or mA/KV adjustment according to patient size. FINDINGS: The lung bases are clear.Small hiatal hernia. Cholecystectomy clips. The liver, spleen, pancreas, adrenal glands and kidneys are within normal limits. No bowel obstruction, free air, free fluid or abscess. Sigmoid diverticulosis is present involving th e sigmoid colon with subtle reticulation of the adjacent fat. The appendix is normal. No evidence of significant lymphadenopathy. No suspicious bony findings. IMPRESSION: Prominent sigmoid diverticulosis coli is present with early findings of acute diverticul itis present.
[2023-06-18] MEDS ORDERED: CIPROFLOXACIN 400mg IV 400 MG/200 ML BAG IV ONE (11:28)
[2023-06-18] MEDS ORDERED: METRONIDAZOLE 500mg IVPB 500 MG/100 ML BAG IV ONE (11:28)
[2023-06-18] MEDS ORDERED: POTASSIUM 25 MEQ EFFERV TAB ONE (11:28)
[2023-06-18] MEDS ORDERED: PROMETHAZINE INJ 25 MG/ML AMP ONE (11:45)
--- NOTE | 2023-06-18 13:47 | EDPHYS ---
Physician Documentation [facility] Name: Bernard Irving Age: 52 yrs Sex: Male : 1970 Arrival Date: 06/18/2023 Time: 09:51 Bed 6 Private MD: ED Physician Joshua Doran HPI: 06/18 10:28 This 52 yrs old Male presents to ER via Ambulatory with complaints of Vomiting/Diarrhea sb4 - 2 Days. 10:28 The patient presents to the emergency department with nausea, vomiting, diarrhea, sb4 abdominal pain. Onset: The symptoms/episode began/occurred 2 day(s) ago. Possible causes: unknown. The symptoms are aggravated by food , The symptoms are alleviated by nothing. Associated signs and symptoms: The patient has no apparent associated signs or symptoms. The patient has experienced similar episodes in the past, a few times. The patient has not recently seen a physician. Historical: - Allergies: 10:10 No Known Allergies; iw - PMHx: 10:10 Diverticulitis; acid reflux; iw - PSHx: 10:10 Cholecystectomy; iw - Immunization history:: Adult Immunizations unknown. - Social history:: Smoking status: Patient denies any tobacco usage or history of. Patient/guardian denies using alcohol. ROS: 10:28 Constitutional: Negative for fever, chills, and weight loss. sb4 10:28 Abdomen/GI: Positive for abdominal pain, nausea, vomiting, and diarrhea. 10:28 All other systems are negative. Exam: 10:28 Head/Face: Normocephalic, atraumatic. Eyes: Extra-ocular motions intact. Periorbital sb4 areas with no swelling, redness, or edema. ENT: Mucous membranes moist. Cardiovascular: Regular rate and rhythm with a normal S1 and S2. Respiratory: Lungs have equal breath sounds bilaterally, clear to auscultation and percussion. No rales, rhonchi or wheezes noted. No increased work of breathing, no retractions or nasal flaring. Skin: Warm, dry with normal turgor. Normal color with no rashes, no lesions, and no evidence of cellulitis. MS/ Extremity: Pulses equal, no cyanosis. Neurovascular intact. Full, normal range of motion. Neuro: Awake and alert, GCS 15, oriented to person, place, time, and situation. Cranial nerves II-XII grossly intact. Motor strength 5/5 in all extremities. Sensory grossly intact. Cerebellar exam normal. Normal gait. 10:28 Constitutional: The patient appears alert, awake, uncomfortable. 10:28 Abdomen/GI: Inspection: abdomen appears normal, Bowel sounds: diminished, Palpation: soft, nontender. 10:28 Psych: Affect is flat. Vital Signs: 10:09 BP 133 / 87; Pulse 79; Resp 16; Pulse Ox 98% on R/A; Weight 77.11 kg; Height 5 ft. 8 iw in. ; 10:43 BP 133 / 87; Pulse 70; Resp 18 S; Pulse Ox 99% on R/A; kc6 11:28 BP 125 / 73; Pulse 87; Resp 19 S; Pulse Ox 99% on R/A; kc6 13:04 BP 114 / 74; Pulse 80; Resp 18; Pulse Ox 100% on R/A; mb9 10:09 Body Mass Index 25.85 (77.11 kg, 172.72 cm) iw MDM: 10:02 Patient medically screened. sb4 10:30 Differential diagnosis: Nonspecific abd pain, gastritis, pancreatitis, diverticulitis, sb4 viral gastroenteritis, gastroenteritis. 11:15 Data reviewed: vital signs, nurses notes, lab test result(s), radiologic studies, and sb4 as a result, I will discharge patient. Consideration of Admission/Observation Escalation of care including admission/observation considered. Counseling: I had a detailed discussion with the patient and/or guardian regarding the historical points, exam findings, and any diagnostic results supporting the discharge/admit diagnosis, lab results, radiology results, to return to the emergency department if symptoms worsen or persist or if there are any questions or concerns that arise at home. 06/18 10:07 Order name: CBC with Diff; Complete Time: 10:30 sb4 06/18 10:07 Order name: CMP; Complete Time: 10:53 sb4 06/18 10:07 Order name: Lipase; Complete Time: 10:53 sb4 06/18 10:07 Order name: Troponin High Sensitivity; Complete Time: 10:53 sb4 06/18 10:07 Order name: CT Abd/Pelvis - IV Contrast Only; Complete Time: 11:10 sb4 06/18 10:07 Order name: IV Saline Lock; Complete Time: 10:21 sb4 06/18 10:07 Order name: Labs collected and sent; Complete Time: 10:21 sb4 06/18 11:14 Order name: PO challenge; Complete Time: 11:24 sb4 Administered Medications: 10:21 Drug: NS 0.9% IV 1000 ml Route: IV; Rate: 1 bolus; Site: right antecubital; kc6 11:12 Follow up: Response: No adverse reaction; IV Status: Completed infusion; IV Intake: kc6 1000ml 10:21 Drug: Famotidine IVP 20 mg Route: IVP; Site: right antecubital; kc6 11:11 Follow up: Response: No adverse reaction kc6 10:21 Drug: Ondansetron IVP 4 mg Route: IVP; Site: right antecubital; kc6 11:11 Follow up: Response: No adverse reaction; Nausea is decreased; Vomiting decreased kc6 11:14 CANCELLED (Physician Discretion): Potassium PO Effervescent Tablet 50 mEq PO once; sb4 dissolve in 4 ounces of water or juice 11:24 Drug: NS 0.9% IV 1000 ml Route: IV; Rate: 1 bolus; Site: right antecubital; kc6 11:24 Drug: metroNIDAZOLE IVPB 500 mg Volume: 100 ml; Route: IVPB; Rate: 200 ml/hr; Infused kc6 Over: 30 mins; Site: right antecubital; 11:59 Follow up: Response: No adverse reaction; IV Status: Completed infusion; IV Intake: kc6 100ml 11:24 Drug: Potassium PO Effervescent Tablet 25 mEq Route: PO; kc6 12:00 Follow up: Response: No adverse reaction kc6 11:42 Drug: Promethazine IVP 12.5 mg Route: IVP; Site: right antecubital; kc6 12:00 Follow up: Response: No adverse reaction; Nausea is decreased; Vomiting decreased kc6 11:59 Drug: Ciprofloxacin IVPB 400 mg Volume: 200 ml; Route: IVPB; Infused Over: 60 mins; kc6 Site: right antecubital; 13:05 Follow up: IV Status: Completed infusion iw Disposition: 15:40 Co-signature as Attending Physician, Joshua Doran MD I reviewed the patient's care rt provided by the Advanced Practice Provider and agree with the diagnosis and treatment plan. Disposition Summary: 06/18/23 13:47 Discharge Ordered Location: Home sb4 Problem: an acute exacerbation sb4 Symptoms: have improved sb4 Condition: Stable sb4 Diagnosis - Diverticulitis of large intestine without perforation or abscess without bleeding sb4 Followup: sb4 - With: - When: As needed - Reason: Recheck today's complaints, Continuance of care, Re-evaluation by your physician Discharge Instructions: - Discharge Summary Sheet sb4 - Diverticulitis, [id number] sb4 Forms: - Medication Reconciliation Form sb4 - Thank You Letter sb4 - Antibiotic Education sb4 - Prescription Opioid Use sb4 - Patient Portal Instructions sb4 - Leadership Thank You Letter sb4 Prescriptions: - Flagyl 500 mg Oral Tablet - take 1 tablet by ORAL route every 8 hours for 10 days; 30 tablet; Refills: 0, sb4 Product Selection Permitted - Zofran 4 mg Oral Tablet - take 1 tablet by ORAL route every 12 hours As needed; 20 tablet; Refills: 0, sb4 Product Selection Permitted - Cipro 500 mg Oral Tablet - take 1 tablet by ORAL route every 12 hours for 7 days; 14 tablet; Refills: 0, sb4 Product Selection Permitted Signatures: Dispatcher [employer] Britney Moser, ALISHA BRITO iw Yoana Hadley RN RN kc6 Prerna Villalobos PA-C PA-C sb4 Joshua Doran MD MD rt Corrections: (The following items were deleted from the chart) 11:14 11:14 Potassium PO Effervescent Tablet 50 mEq PO once; dissolve in 4 ounces of water or sb4 juice ordered. sb4
--- NOTE | 2023-06-18 13:47 | ER ---
Nurse's Notes [facility] Name: Bernard Irving Age: 52 yrs Sex: Male : 1970 Arrival Date: 06/18/2023 Time: 09:51 Bed 6 Private MD: Diagnosis: Diverticulitis of large intestine without perforation or abscess without bleeding Presentation: 06/18 10:09 Chief complaint: Patient states: vomiting, diarrhea X 2 days, also had lower abd pain, iw hx of diverticulitis, no fever , +chills, blood in vomit , has burning pain from esophagus down to stomach. Coronavirus screen: Client presents with at least one sign or symptom that may indicate coronavirus-19. Ebola Screen: Patient negative for fever greater than or equal to 101.5 degrees Fahrenheit, and additional compatible Ebola Virus Disease symptoms Patient denies exposure to infectious person. Patient denies travel to an Ebola-affected area in the 21 days before illness onset. No symptoms or risks identified at this time. Initial Sepsis Screen: Does the patient meet any 2 criteria? No. Patient's initial sepsis screen is negative. Does the patient have a suspected source of infection? No. Patient's initial sepsis screen is negative. Risk Assessment: Do you want to hurt yourself or someone else? Patient reports no desire to harm self or others. Onset of symptoms was June 16, 2023. 10:09 Method Of Arrival: Ambulatory iw 10:09 Acuity: ASH 3 iw Historical: - Allergies: 10:10 No Known Allergies; iw - PMHx: 10:10 Diverticulitis; acid reflux; iw - PSHx: 10:10 Cholecystectomy; iw - Immunization history:: Adult Immunizations unknown. - Social history:: Smoking status: Patient denies any tobacco usage or history of. Patient/guardian denies using alcohol. Screenin:22 [facility] ED Fall Risk Assessment (Adult) History of falling in the last 3 months, kc6 including since admission No falls in past 3 months (0 pts) Confusion or Disorientation No (0 pts) Intoxicated or Sedated No (0 pts) Impaired Gait No (0 pts) Mobility Assist Device Used No (0 pt) Altered Elimination No (0 pt) Score/Fall Risk Level 0 - 2 = Low Risk. Abuse screen: Denies threats or abuse. Denies injuries from another. Nutritional screening: No deficits noted. Tuberculosis screening: No symptoms or risk factors identified. Assessment: 10:22 General: Appears in no apparent distress. uncomfortable, ill, Behavior is calm, kc6 cooperative, appropriate for age. Pain: Complains of pain in right lower quadrant and left lower quadrant Pain does not radiate. Pain currently is 5 out of 10 on a pain scale. Quality of pain is described as burning, Pain began 2-3 days ago. Is continuous. Neuro: Level of Consciousness is awake, alert, obeys commands, Oriented to person, place, time, situation, Appropriate for age. Cardiovascular: Capillary refill < 3 seconds. Respiratory: Airway is patent Trachea midline Respiratory effort is even, unlabored, Respiratory pattern is regular, symmetrical. GI: Abdomen is flat, non-distended, Bowel sounds present X 4 quads. Abd is soft X 4 quads Abdomen is tender to palpation in right lower quadrant and left lower quadrant Reports lower abdominal pain, cramping, nausea, vomiting. : No signs and/or symptoms were reported regarding the genitourinary system. EENT: No signs and/or symptoms were reported regarding the EENT system. Derm: No signs and/or symptoms reported regarding the dermatologic system. Skin is intact, is healthy with good turgor, Skin is pink, warm \T\ dry. Musculoskeletal: No signs and/or symptoms reported regarding the musculoskeletal system. Circulation, motion, and sensation intact. Capillary refill < 3 seconds, Range of motion: intact in all extremities. 11:22 Reassessment: Patient appears in no apparent distress at this time. No changes from kc6 previously documented assessment. Patient and/or family updated on plan of care and expected duration. Pain level reassessed. Patient is alert, oriented x 3, equal unlabored respirations, skin warm/dry/pink. 13:05 Reassessment: No changes from previously documented assessment. Patient and/or family mb9 updated on plan of care and expected duration. Pain level reassessed. Patient is alert, oriented x 3, equal unlabored respirations, skin warm/dry/pink. 13:56 Reassessment: Patient and/or family updated on plan of care and expected duration. Pain mb9 level reassessed. Patient is alert, oriented x 3, equal unlabored respirations, skin warm/dry/pink. Patient states feeling better. Patient states symptoms have improved. Vital Signs: 10:09 BP 133 / 87; Pulse 79; Resp 16; Pulse Ox 98% on R/A; Weight 77.11 kg; Height 5 ft. 8 iw in. ; 10:43 BP 133 / 87; Pulse 70; Resp 18 S; Pulse Ox 99% on R/A; kc6 11:28 BP 125 / 73; Pulse 87; Resp 19 S; Pulse Ox 99% on R/A; kc6 13:04 BP 114 / 74; Pulse 80; Resp 18; Pulse Ox 100% on R/A; mb9 10:09 Body Mass Index 25.85 (77.11 kg, 172.72 cm) iw ED Course: 09:54 Patient arrived in ED. mg5 09:55 Prerna Villalobos PA-C is PHCP. sb4 09:55 Joshua Doran MD is Attending Physician. sb4 10:10 Triage completed. iw 10:11 Arm band placed on. iw 10:12 Yoana Hadley RN is Primary Nurse. kc6 10:21 Inserted saline lock: 22 gauge in right antecubital area, using aseptic technique. zm Blood collected. 10:22 Patient has correct armband on for positive identification. Placed in gown. Bed in low kc6 position. Call light in reach. Side rails up X 1. Adult w/ patient. 10:22 Initial lab(s) drawn, by me, sent to lab. zm 10:57 CT Abd/Pelvis - IV Contrast Only In Process Unspecified. EDMS 12:08 Report received from ALISHA Lees. mb9 13:47 Eduardo Lopez MD is Referral Physician. sb4 13:56 No provider procedures requiring assistance completed. IV discontinued, intact, mb9 bleeding controlled, No redness/swelling at site. Pressure dressing applied. Administered Medications: 10:21 Drug: NS 0.9% IV 1000 ml Route: IV; Rate: 1 bolus; Site: right antecubital; kc6 11:12 Follow up: Response: No adverse reaction; IV Status: Completed infusion; IV Intake: kc6 1000ml 10:21 Drug: Famotidine IVP 20 mg Route: IVP; Site: right antecubital; kc6 11:11 Follow up: Response: No adverse reaction kc6 10:21 Drug: Ondansetron IVP 4 mg Route: IVP; Site: right antecubital; kc6 11:11 Follow up: Response: No adverse reaction; Nausea is decreased; Vomiting decreased kc6 11:14 CANCELLED (Physician Discretion): Potassium PO Effervescent Tablet 50 mEq PO once; sb4 dissolve in 4 ounces of water or juice 11:24 Drug: NS 0.9% IV 1000 ml Route: IV; Rate: 1 bolus; Site: right antecubital; kc6 11:24 Drug: metroNIDAZOLE IVPB 500 mg Volume: 100 ml; Route: IVPB; Rate: 200 ml/hr; Infused kc6 Over: 30 mins; Site: right antecubital; 11:59 Follow up: Response: No adverse reaction; IV Status: Completed infusion; IV Intake: kc6 100ml 11:24 Drug: Potassium PO Effervescent Tablet 25 mEq Route: PO; kc6 12:00 Follow up: Response: No adverse reaction kc6 11:42 Drug: Promethazine IVP 12.5 mg Route: IVP; Site: right antecubital; kc6 12:00 Follow up: Response: No adverse reaction; Nausea is decreased; Vomiting decreased kc6 11:59 Drug: Ciprofloxacin IVPB 400 mg Volume: 200 ml; Route: IVPB; Infused Over: 60 mins; kc6 Site: right antecubital; 13:05 Follow up: IV Status: Completed infusion iw Intake: 11:12 IV: 1000ml; Total: 1000ml. kc6 11:59 IV: 100ml; Total: 1100ml. kc6 Outcome: 13:47 Discharge ordered by . sb4 13:57 Discharged to home ambulatory. mb9 13:57 Condition: stable 13:57 Discharge instructions given to patient, Instructed on discharge instructions, follow up and referral plans. Demonstrated understanding of instructions, follow-up care, medications, Prescriptions given X 3. 13:57 Patient left the ED. mb9 Signatures: Dispatcher [employer] EDBritney Eden RN RN iw Martinez, Zaina zm Campbell, Kaitlyn, RN RN kc6 Brown, Sophia, PAEdytaC PAEdytaC sb4 Priscilla Osorio RN RN mb9 Marina Read mg5
[2023-06-18 15:00] VITALS: BP 114/74; O2SAT 100
== END 2023-06-18 13:57 | disposition home or self-care (01) ==
LOC: ER 09:51
DX: K57.32 Diverticulitis of large intestine without perforation or abscess without bleeding (principal)
CPT/HCPCS: 36415; 74177; 80053; 83690; 84484; 85025; 96361; 96365; 96367; 96375; 99284; J0744; J2405; J2550; J7030; Q9967

== ENCOUNTER 2023-07-14 11:42 | Emergency (ER) | payer SELFPAY ==
--- OUTSIDE RECORDS SUMMARY | 2023-07-14 11:51 | XMS REPORT | Continuity of Care Document ---
:1970 Author Organization [facility] [place] t Address [address] [place] [address] Care Team Providers Name Role Phone PCP, PATIENT DOES NOT HAVE A Primary Care Physician Unavaila ble Jesus Sanchez Attending Clinician Jesus DEE Attending Clinician Unavailable Doctor Unassigned, [place] Attending Clinician Unavailable Nadeem Grande MD Attending [...] Added automatic ally from request for surgery [id number] Allergies, Adverse Reactions, Alerts Allergy Allergy Status Severity Reaction(s) Onset Inactive Treating Comm ents Source Name Type Date Date Clinician NO KNOWN Drug Active Univers ALLERGIE Class ity of S [facility] [place] Social History Social Habit Start Date Stop Date Quantity Comments Source History SDOH University o f Alcohol Frequency [place] [facility] History SDOH University o f Alcohol Std [place] [facility] Drinks Branch History SDOH University o f Alcohol Binge [place] [facility] al Branch Exposure to 2022-03-14 2022-03-24 Unable to assess Univers ity of SARS-CoV-2 00:00:00 15:58:00 [facility] (event) Branch Alcohol intake 2019-03-03 2019-03-03 Current drinker Unive rsity of 00:00:00 00:00:00 of alcohol [facility] (finding) Branch Tobacco use and 2018-11-10 2018-11-10 Never used Universit y of exposure 00:00:00 00:00:00 [facility] [place] Alcohol Comment 2018-11-10 2018-11-10 socially Universit y of 00:00:00 00:00:00 [facility] [place] Sex Assigned At [birth year] Universit y of 00:00:00 00:00:00 [facility] [place] Smoking Status Start Date Stop Date Source Never smoker [facility] Medications Ordered Filled Start Stop Current [...] 03/24/22 at 1915, CHRISTOPHER iopamidol 2021- No [id number] 75mL 75 mL, Univers (ISOVUE 03-24-30 Intravenou [...] Branch 03/24/22 at 1730, CHRISTOPHER ondansetron Yes [id number] 4mg Take 1 Univers (ZOFRAN) 4 5-30 tablet by ity of mg tablet 00:00: mouth [place] 00 every 8 Medical (eight) Branch hours as needed for Nausea and Vomiting (N/V). famotidine Yes [id number] 40mg Take 1 Univers (PEPCID) 40 5-30 tablet by ity of mg tablet 00:00: mouth [place] 00 daily. Medical Branch proMETHazin Yes [id number] 25mg Take 1 Univers e 25 mg 4-26 tablet by ity of tablet 00:00: mouth [place] 00 every 6 Medical (six) Branch hours as needed for Nausea and Vomiting (N/V). pantoprazol 2020-0 Yes [id number] 40mg Take 1 Univers e 40 mg EC 4-26 tablet by ity of tablet 00:00: mouth daily. Medical Branch proMETHazin 2020-0 Yes [id number] 25mg Take 1 Univers e 25 mg 4-26 tablet by ity of tablet 00:00: mouth [place] 00 every 6 Medical (six) Branch hours as needed for Nausea and Vomiting (N/V). pantoprazol 2020-0 Yes [id number] 40mg Take 1 Univers e 40 mg EC 4-26 tablet by ity of tablet 00:00: mouth daily. Medical Branch Capsaicin 2020-0 Yes [id number] Apply to Univers 0.025 % 4-24 area(s) as ity of PtMd 00:00: needed for Nausea and Medical Vomiting Branch (N/V). dicyclomine 0 Yes [id number] 10mg Take 1 Univers 10 mg 4-24 capsule by ity of capsule 00:00: mouth every 8 Medical (eight) Branch hours as needed for Abdominal pain. ondansetron 0 Yes [id number] 4mg Take 1 Univers 4 mg 4-24 tablet by ity of disintegrat 00:00: mouth [place] ing tablet 00 every 8 Medica l (eight) Branch hours as needed for Nausea and Vomiting (N/V). Capsaicin 2020-0 Yes [id number] Apply to Univers 0.025 % 4-24 area(s) as ity of PtMd 00:00: needed for Nausea and Medical Vomiting Branch (N/V). dicyclomine 0 Yes [id number] 10mg Take 1 Univers 10 mg 4-24 capsule by ity of capsule 00:00: mouth every 8 Medical (eight) Branch hours as needed for Abdominal pain. ondansetron 0 Yes [id number] 4mg Take 1 Univers 4 mg 4-24 tablet by ity of disintegrat 00:00: mouth [place] ing tablet 00 every 8 Medica l (eight) Branch hours as needed for Nausea and Vomiting (N/V). sucralfate 2018-0 Yes [id number] 1000mg Take 10 mL Univers (CARAFATE) 5-09 by mouth ity o f 100 mg/mL 00:00: before [place] suspension 00 meals and Medi jhonatan at Branch bedtime. benzonatate 2019-0 Yes [id number] 100mg Take 1 Univers 100 mg 5-09 capsule by ity of capsule 00:00: mouth 3 (three) Medical times Branch daily as needed for Cough. sucralfate 2019-0 Yes [id number] 1000mg Take 10 mL Univers (CARAFATE) 5-09 by mouth ity o f 100 mg/mL 00:00: before [place] suspension 00 meals and [facility] at Branch bedtime. benzonatate 2019-0 Yes [id number] 100mg Take 1 Univers 100 mg 5-09 capsule by ity of capsule 00:00: mouth 3 (three) Medical times Branch daily as needed for Cough. ciprofloxac 2019-0 Yes [id number] 500mg Take 1 Univers in HCl 500 5-03 tablet by ity of mg tablet 00:00: mouth 2 (two) Medical times Branch daily. proMETHazin 2019-0 Yes [id number] 25mg Take 1 Univers e 25 mg 5-03 tablet by ity of tablet 00:00: mouth [place] every 6 Medical (six) Branch hours as needed for Nausea and Vomiting (N/V). ciprofloxac 2019-0 Yes [id number] 500mg Take 1 Univers in HCl 500 5-03 tablet by ity of mg tablet 00:00: mouth 2 (two) Medical times Branch daily. proMETHazin 2019-0 Yes [id number] 25mg Take 1 Univers e 25 mg 5-03 tablet by ity of tablet 00:00: mouth [place] every 6 Medical (six) Branch hours as needed for Nausea and Vomiting (N/V). ciprofloxac 2019-0 Yes [id number] 500mg Take 1 Univers in HCl 500 1-23 tablet by ity of mg tablet 00:00: mouth 2 (two) Medical times Branch daily. ciprofloxac 2019-0 Yes [id number] 500mg Take 1 Univers in HCl 500 1-23 tablet by ity of mg tablet 00:00: mouth 2 [place] (two) Medical times Branch daily. Vital Signs Vital Name Observation Time Observation Value Comments Source Respiratory rate 2022-03-25 01:46:00 20 /min [facility] Oxygen saturation in 2022-03-25 01:46:00 96 /min [facility] blood by [facility] Pulse oximetry Branch Systolic blood 2022-03-25 01:46:00 110 [facility] [place] Diastolic blood 2022-03-25 01:46:00 69 mm[Hg] [facility] Heart rate 2022-03-25 01:46:00 67 /min [facility] Body temperature 2022-03-25 01:46:00 37.28 Shivani [facility] Body height 2022-03-24 21:08:00 172.7 cm [facility] Body weight 2022-03-24 21:08:00 81.647 kg [facility] BMI 2022-03-24 21:08:00 27.37 kg/m2 [facility] Procedures Procedure Date / Time Performed Performing Clinician Ede e CT ABDOMEN PELVIS W 2022-03-24 23:24:00 Jesus Dee [facility] CONTRAST [facility] URINALYSIS 2022-03-24 22:46:[address] [facility] LIPASE 2022-03-24 22:11:00 Carlos A, [facility] MAGNESIUM 2022-03-24 22:11:00 Carlos A, [facility] TROPONIN I 2022-03-24 22:11:00 Carlos A, [facility] COMP. METABOLIC PANEL 2022-03-24 22:11:00 Jesus Dee [facility] ([id number]) [facility] CBC WITH DIFF 2022-03-24 22:11:00 Carlos A, [facility] ASSIGNMENT OF BENEFITS 2022-03-24 21:55:11 Doctor Unassigned, No [facility] Medical [place] NOTICE OF PRIVACY 2022-03-24 20:57:45 Doctor Unassigned, No [facility] CONSENT/REFUSAL FOR 2022-03-24 20:57:17 Doctor Unassigned, No [facility] DIAGNOSIS AND [facility] Medical Branch TREATMENT Encounters Start End Encounter Admission Attending Care Care Encounter Source Date/Time Date/Time Type Type Clinicians Facility Department ID 2022-03-24 2022-03-24 Emergency Jesus Dee [facility] [id number] Univers 16:10:00 22:02:00 Maritza GANT [id number] i ty of [place] 4.2.7.2.686 [facility] [id number] [facility] [address] [place] 2022-03-24 2022-03-24 Emergency X Jesus DEE [facility] ERT [id number] Univers 16:10:00 22:02:00 ity [facility] 2022-03-24 2022-03-24 Orders Doctor ROGERS [id number] Univers 00:00:00 00:00:00 Only Unassigned, UMER [id number] ity [facility] 4.2.7.2.686 [facility] [id number] [facility] 009 Branch 2021-02-18 2021-02-18 [facility] [id number] 13:21:00 16:27:00 Nadeem Stalin [id number] [place] 4.2.7.2.686 Grace[place] [id number] [facility] 2021-02-18 2021-02-18 Emergency X [facility] ERT [id number] Univers 13:15:00 13:15:00 ity [facility] 2021-02-16 2021-02-17 Emergency Resendez, [facility] [id number] 21:09:00 00:08:00 Johnathan Gant [id number] [place] 4.2.7.2.686 [place] [id number] [facility] 2021-02-16 2021-02-16 Emergency X [facility] ERT [id number] Univers 21:03:00 [facility]:03:00 [facility] Results Test Description Test Time Test Comments Results Result Comments Source TROPONIN I 2022-03-24 22:56:15 Test Item Value Reference Range Interpretation Comme nts TROPONIN I (test code = <0.012 See_Comment [Au tomated message] The 8860988843) system which ge nerated this result tra [...] biotin. Lab Interpretation Normal (test code = 61128-7) [facility] 22:44:57 Test Item Value Reference Range Interpretation Comments MAGNESIUM (test code = 6089332885) 1.9 mg/dL 1.7-2.4 Lab Interpretation (test code = Normal 24320-2) [facility]OLIC PAN[facility] ([id number])2022-03-24 22:44:37 Test Item Value Reference Range Interpretation Comments NA (test code = 142 mmol/L 135-145 0205388456) K (test code = 4.6 mmol/L 3.5-5.0 3960111759) CL (test code = 104 mmol/L 98-108 5671044977) CO2 TOTAL (test code = 24 mmol/L 23-31 3383160850) AGAP (test code = 2-16 1244733110) BUN (test code = 13 mg/dL 7-23 9169237804) GLUCOSE (test code = 130 mg/dL 70-110 H 4971878836) CREATININE (test code = 0.93 mg/dL 0.60-1.25 0211731350) TOTAL BILI (test code = 0.5 mg/dL 0.1-1.2 7601849702) CALCIUM (test code = 9.6 mg/dL 8.6-10.6 0413006620) T PROTEIN (test code = 7.6 g/dL 6.3-8.2 2206903630) ALBUMIN (test code = 4.8 g/dL 3.5-5.0 4564573111) ALK PHOS (test code = 63 U/L 34-122 9108197640) ALTv (test code = 16 U/L 5-50 1742-6) AST(SGOT) (test code = 21 U/L 13-40 9174118511) eGFR (test code = mL/min/1.73m2 4653616601) KALI (test code = KALI) Association of [...] tests). Lab Interpretation Abnormal (test code = 80152-6) [facility] 22:44:37 Test Item Value Reference Range Interpretation Comments LIPASE (test code = 7719243701) 138 U/L 0-220 Lab Interpretation (test code = Normal 08839-0) [facility] WITH [id number] 22:30:54 Test Item Value Reference Range Interpretation Comments WBC (test code = See_Comment H [Automated 1890-2) message] The system which generated this result [...] RDW-SD (test code = 39.8 fL 38.5-51.6 81967-1) RDW-CV (test code = 12.1 % 12.1-15.4 788-0) PLT (test code = See_Comment [Automated 777-3) message] The system which generated this result transmit courtney reference range : 150 - 328 10*3/ ?L. The reference range was not u sed to interpret th is result as normal/abnormal . MPV (test code = 12.0 fL 9.8-13.0 97924-4) NRBC/100 WBC (test See_Comment [Automat ed code = 5263631989) message] The system which generated this result transmit courtney reference range : 0.0 - 10.0 /100 WBCs. The reference range was not used to interpret this result as normal/abnormal . NRBC x10^3 (test code <0.01 See_Comment [Auto mated = 2347080218) message] The system which generated this result transmit courtney reference range : 10*3/?L. The reference range was not used to interpret this result as normal/abnormal . GRAN MAT (NEUT) % 86.7 % (test code = 770-8) IMM GRAN % (test code 0.40 % = 9450359180) LYMPH % (test code = 8.7 % 736-9) MONO % (test code = 3.8 % 5905-5) EOS % (test code = 0.1 % 713-8) BASO % (test code = 0.3 % 706-2) GRAN MAT x10^3(ANC) 11.82 10*3/uL 1.99-6.95 H (test code = 1910116275) IMM GRAN x10^3 (test 0.05 10*3/uL 0.00-0.06 code = 1521838705) LYMPH x10^3 (test code 1.18 10*3/uL 1.09-3.23 = 731-0) MONO x10^3 (test code 0.52 10*3/uL 0.36-1.02 = 742-7) EOS x10^3 (test code = <0.03 0.06-0.53 L 711-2) BASO x10^3 (test code 0.04 10*3/uL 0.01-0.09 = 704-7) Lab Interpretation Abnormal (test code = 66324-0) [facility]"
[2023-07-14 12:31] LABS: Absolute Lymphocytes (CBC) 1.9 K/uL (0.7-4.9); Hematocrit 51.9 % (39.6-49.0); Lymphocytes % 19.6 % (15.3-44.8); MCV 90.8 fL (80-100); MPV 10.1 fL (7.6-11.3); Platelets 199 thou/uL (152-406); RBC Red Blood Cell Count 5.72 M/uL (4.33-5.43)
[2023-07-14 12:51] LABS: Albumin 4.7 g/dL (3.4-5.0); Bilirubin Total 0.6 mg/dL (0.2-1.0); Potassium 3.9 mEq/L (3.5-5.1); Protein, Total 8.6 g/dL (6.4-8.2); Troponin High Sensitivity 8.6 pg/mL (<58.9)
[2023-07-14] MEDS ORDERED: HALOPERIDOL LACT 5 MG/ML INJ ONE (13:52)
[2023-07-14] MEDS ORDERED: NA CHLORIDE 0.9% 1,000 ML ONE (13:52)
--- NOTE | 2023-07-14 15:42 | EDPHYS ---
Physician Documentation [facility] Name: Bernard Irving Age: 52 yrs Sex: Male : 1970 Arrival Date: 07/14/2023 Time: 11:42 Bed 15 Private MD: ED Physician Nate Howell HPI: 07/14 12:30 This 52 yrs old Male presents to ER via Ambulatory with complaints of Vomiting, aj3 Abdominal Pain. 12:30 He reports abdominal pain, nausea/vomiting since being discharged with antibiotics for aj3 diverticulitis the a couple of weeks ago. He says pain is lower abdomen, no diarrhea, bloody/black bloody stool, fever, urinary symptoms. . Historical: - Allergies: 12:17 No Known Allergies; mb9 - Home Meds: 12:17 None [Active]; mb9 - PMHx: 12:17 acid reflux; Diverticulitis; mb9 - PSHx: 12:17 Cholecystectomy; mb9 - Immunization history:: Adult Immunizations up to date. - Social history:: Smoking status: Patient denies any tobacco usage or history of. ROS: 12:30 Constitutional: Negative for fever, chills, and weight loss, Cardiovascular: Negative aj3 for chest pain, palpitations, and edema, Respiratory: Negative for shortness of breath, cough, wheezing, and pleuritic chest pain, MS/Extremity: Negative for injury and deformity, Skin: Negative for injury, rash, and discoloration, Neuro: Negative for syncope, headache, weakness, numbness, tingling, and seizure, 12:30 Abdomen/GI: Positive for abdominal pain, nausea and vomiting, Negative for black/tarry stool, rectal bleeding, Exam: 12:30 Constitutional: This is a well developed, well nourished patient who is awake, alert, aj3 and in no acute distress. Head/Face: Normocephalic, atraumatic. Neck: Supple, full range of motion without nuchal rigidity. Cardiovascular: Regular rate and rhythm with a normal S1 and S2. No gallops, murmurs, or rubs. Normal PMI, no JVD. No pulse deficits. Respiratory: Lungs have equal breath sounds bilaterally, clear to auscultation and percussion. No rales, rhonchi or wheezes noted. No increased work of breathing, no retractions or nasal flaring. 12:30 Abdomen/GI: Exam negative for guarding, rebound tenderness, Bowel sounds: diminished, Palpation: mild abdominal tenderness, in the right lower quadrant and left lower quadrant, Vital Signs: 12:15 BP 119 / 85; Pulse 108; Resp 18; Temp 98.5; Pulse Ox 100% ; Weight 77.11 kg; Height 5 mb9 ft. 8 in. ; 13:20 BP 120 / 81; Pulse 76; Resp 17; Pulse Ox 99% on R/A; me1 14:40 BP 128 / 89; Pulse 97; Resp 16; Pulse Ox 99% on R/A; me1 15:43 BP 126 / 76; Pulse 92; Resp 19; Pulse Ox 93% on R/A; me1 16:01 BP 120 / 74; Pulse 99; Resp 17; Pulse Ox 99% on R/A; me1 12:15 Body Mass Index 25.85 (77.11 kg, 172.72 cm) 9 MDM: 12:14 Patient medically screened. [facility] 14:00 Differential diagnosis: gastritis, pancreatitis, diverticulitis, viral gastroenteritis. [facility] 14:00 Data reviewed: vital signs, nurses notes, lab test result(s), I have discussed the [facility] patient's presentation/case with the attending Emergency Department Physician;. I considered the following discharge prescriptions or medication management in the emergency department Medications were administered in the Emergency Department. See MAR. Test considered but Not performed: CT: labs reassuring and symptoms improved. Counseling: I had a detailed discussion with the patient and/or guardian regarding the historical points, exam findings, and any diagnostic results supporting the discharge/admit diagnosis, lab results, the need for outpatient follow up, to return to the emergency department if symptoms worsen or persist or if there are any questions or concerns that arise at home. Response to treatment: the patient's symptoms have markedly improved after treatment, patient is well hydrated. 07/14 12: Order name: CBC with Diff; Complete Time: : [facility] 07/14 12:06 Order name: CMP; Complete Time: : [facility] 07/14 12:06 Order name: Lipase; Complete Time: : [facility] 07/14 12:06 Order name: Troponin HS; Complete Time: : [facility] 07/14 12:06 Order name: EKG; Complete Time: 12:07 [facility] 07/14 12:06 Order name: IV Saline Lock; Complete Time: 12:12 [facility] 07/14 12:06 Order name: Labs collected and sent; Complete Time: 12:12 [facility] 07/14 12:06 Order name: Cardiac monitoring; Complete Time: 13:51 [facility] 07/14 12:06 Order name: O2 Per Protocol; Complete Time: 13:51 [facility] 07/14 12:06 Order name: O2 Sat Monitoring; Complete Time: 13:51 [facility] 07/14 13:29 Order name: EKG - Nurse/Tech; Complete Time: 14:18 07/14 15:05 Order name: PO challenge aj3 Administered Medications: 13:27 CANCELLED (Physician Discretion): ondansetron 4 mg IVP once; over 2 minutes aj3 13:51 Drug: NS 0.9% IV 1000 ml IV at 1000 ml once Route: IV; Rate: 1000 ml; Site: left me1 forearm; 15:42 Follow up: Response: No adverse reaction; IV Status: Completed infusion me1 13:51 Drug: Haloperidol IVP 2.5 mg IVP once; give over 1-2 min Route: IVP; Site: left forearm;me1 14:55 Follow up: Response: No adverse reaction; Nausea is decreased me1 Disposition: 21:12 I was immediately available on-site in the Emergency Department for consultation in the ms3 care of the patient. Disposition Summary: 07/14/23 15:41 Discharge Ordered Notes: Location: Home aj3 Condition: Stable aj3 Diagnosis - Cyclical vomiting, not intractable aj3 - Lower abdominal pain, unspecified aj3 Followup: aj3 - With: Private Physician - When: - Reason: Recheck today's complaints, Re-evaluation by your physician Followup: aj3 - With: Emergency Department - When: - Reason: Trouble breathing, Worsening of condition Discharge Instructions: - Discharge Summary Sheet aj3 - Cyclic Vomiting Syndrome, Adult aj3 Forms: - Work release form aj3 - Medication Reconciliation Form aj3 - Thank You Letter aj3 - Antibiotic Education aj3 - Prescription Opioid Use aj3 - Patient Portal Instructions aj3 - Leadership Thank You Letter aj3 Prescriptions: - ondansetron 4 mg Oral Tablet,disintegrating - take 1 tablet ORAL route every 8 hours; 15 tablet; Refills: 0, Product aj3 Selection Permitted Signatures: Dispatcher [employer] EDMS Nate Howell, DO ms3 Amna Strong, RECREATIONAL FACILITIES MOTEL MANAGER RECREATIONAL FACILITIES MOTEL MANAGER aj3 Priscilla Osorio RN RN mb9 Elizabeth Levy RN RN me1 Corrections: (The following items were deleted from the chart) 12:14 12:06 EKG - Nurse/Tech ordered. aj3 aj3 13:27 13:26 Ondansetron IVP 4 mg IVP once; over 2 minutes ordered. aj3 aj3
--- NOTE | 2023-07-14 15:42 | ER ---
Nurse's Notes [facility] Name: Bernard Irving Age: 52 yrs Sex: Male : 1970 Arrival Date: 07/14/2023 Time: 11:42 Bed 15 Private MD: Diagnosis: Cyclical vomiting, not intractable;Lower abdominal pain, unspecified Presentation: 07/14 12:15 Chief complaint: Patient states: "I've been vomiting on and off for the past 3 weeks. mb9 It feels like Diverticulitis. I feel constipated.". Coronavirus screen: Vaccine status: Patient reports being unvaccinated. Ebola Screen: No symptoms or risks identified at this time. Initial Sepsis Screen: Does the patient meet any 2 criteria? No. Patient's initial sepsis screen is negative. Does the patient have a suspected source of infection? No. Patient's initial sepsis screen is negative. Risk Assessment: Do you want to hurt yourself or someone else? Patient reports no desire to harm self or others. Onset of symptoms was July 14, 2023. 12:15 Method Of Arrival: Ambulatory mb9 12:15 Acuity: ASH 3 mb9 Triage Assessment: 12:17 General: Appears uncomfortable, Behavior is cooperative, anxious. Pain: Complains of mb9 pain in abdomen Pain does not radiate. Quality of pain is described as throbbing, Pain began 2-3 weeks ago Is continuous. Neuro: [place] Agitation-Sedation Scale (RASS): 0 - Alert and Calm Level of Consciousness is awake, alert, obeys commands, Oriented to person, place, time, situation, Appropriate for age. Cardiovascular: Patient's skin is warm and dry. Respiratory: Airway is patent Respiratory effort is even, unlabored, Respiratory pattern is regular, symmetrical. GI: Abdomen is flat, non-distended, Reports constipation, nausea, vomiting. Derm: Skin is pink, warm \\T\\ dry. Musculoskeletal: Range of motion: intact in all extremities. Historical: - Allergies: 12:17 No Known Allergies; mb9 - Home Meds: 12:17 None [Active]; mb9 - PMHx: 12:17 acid reflux; Diverticulitis; mb9 - PSHx: 12:17 Cholecystectomy; mb9 - Immunization history:: Adult Immunizations up to date. - Social history:: Smoking status: Patient denies any tobacco usage or history of. Screenin:20 [facility] ED Fall Risk Assessment (Adult) History of falling in the last 3 months, me1 including since admission No falls in past 3 months (0 pts) Confusion or Disorientation No (0 pts) Intoxicated or Sedated No (0 pts) Impaired Gait No (0 pts) Mobility Assist Device Used No (0 pt) Altered Elimination No (0 pt) Score/Fall Risk Level 0 - 2 = Low Risk. Abuse screen: Denies threats or abuse. Nutritional screening: No deficits noted. Tuberculosis screening: No symptoms or risk factors identified. Assessment: 13:20 General: Appears uncomfortable, well groomed, well developed, well nourished, Behavior me1 is calm, cooperative, appropriate for age, Reports " I have been vomiting on and off for the past 3 weeks. I feel like its diverticulitis. I feel constipated." Denies fever, chills. Pain: Denies pain. Neuro: Level of Consciousness is awake, alert, obeys commands, Oriented to person, place, time, situation, Appropriate for age. Cardiovascular: Capillary refill < 3 seconds Patient's skin is warm and dry. Respiratory: Airway is patent Respiratory effort is even, unlabored, Respiratory pattern is regular, symmetrical. GI: Abdomen is non-distended, Reports nausea, vomiting, on and off for past 3 weeks. Vital Signs: 12:15 BP 119 / 85; Pulse 108; Resp 18; Temp 98.5; Pulse Ox 100% ; Weight 77.11 kg; Height 5 mb9 ft. 8 in. ; 13:20 BP 120 / 81; Pulse 76; Resp 17; Pulse Ox 99% on R/A; me1 14:40 BP 128 / 89; Pulse 97; Resp 16; Pulse Ox 99% on R/A; me1 15:43 BP 126 / 76; Pulse 92; Resp 19; Pulse Ox 93% on R/A; me1 16:01 BP 120 / 74; Pulse 99; Resp 17; Pulse Ox 99% on R/A; me1 12:15 Body Mass Index 25.85 (77.11 kg, 172.72 cm) mb9 ED Course: 11:45 Patient arrived in ED. im 11:46 Amna Strong NP is PHCP. aj3 11:46 Nate Howell DO is Attending Physician. aj3 12:16 Triage completed. mb9 12:17 Arm band placed on. mb9 13:20 Patient has correct armband on for positive identification. Bed in low position. Call me1 light in reach. Side rails up X 1. Provided Education on: POC. Verbalized understanding. . 13:20 No provider procedures requiring assistance completed. Flushed left forearm. me1 13:23 Elizabeth Levy, RN is Primary Nurse. me1 16:01 IV discontinued, intact, bleeding controlled, No redness/swelling at site. Pressure me1 dressing applied. Administered Medications: 13:27 CANCELLED (Physician Discretion): ondansetron 4 mg IVP once; over 2 minutes aj3 13:51 Drug: NS 0.9% IV 1000 ml IV at 1000 ml once Route: IV; Rate: 1000 ml; Site: left me1 forearm; 15:42 Follow up: Response: No adverse reaction; IV Status: Completed infusion me1 13:51 Drug: Haloperidol IVP 2.5 mg IVP once; give over 1-2 min Route: IVP; Site: left forearm;me1 14:55 Follow up: Response: No adverse reaction; Nausea is decreased me1 Medication: 13:20 VIS not applicable for this client. md1 Outcome: 15:41 Discharge ordered by . aj3 16:01 Discharged to home ambulatory, me1 16:01 Condition: stable 16:01 Discharge instructions given to patient, Instructed on discharge instructions, follow up and referral plans. medication usage, Demonstrated understanding of instructions, follow-up care, medications, Prescriptions given X 1, 16:06 Patient left the ED. me1 Signatures: Amna Strong, DISPOSAL PLANT OPERATOR DISPOSAL PLANT OPERATOR aj3 Priscilla Osorio, RN RN mb9 Karen Villarreal Michelle, RN RN me1 Corrections: (The following items were deleted from the chart) 12:18 12:15 BP 119 / 85; Pulse 98bpm; Resp 18bpm; Pulse Ox 100%; Temp 98.5F; 77.11 kg; Height mb9 5 ft. 8 in.; BMI: 25.8; mb9
[2023-07-14 16:50] VITALS: TEMP 98.5
[2023-07-14 16:52] VITALS: O2SAT 99
[2023-07-14 16:55] VITALS: BP 120/74
--- NOTE | 2023-07-15 14:33 | EKG ---
Test Date: 2023-07-14 Test Time: 14:13:27 Automotive Glass Installer: MEREDITH MEASUREMENT RESULTS: Intervals: Rate: 75 WI: 132 QRSD: 92 QT: 362 QTc: 404 Martha: P: 57 WI: 132 QRS: 25 T: 69 INTERPRETIVE STATEMENTS: Normal sinus rhythm Normal ECG No previous ECG available for comparison Electronically Signed On 07-15-23 14:31:00 CDT by Darren Peralta
== END 2023-07-14 16:06 | disposition home or self-care (01) ==
LOC: ER 11:42
DX: R11.15 Cyclical vomiting syndrome unrelated to migraine (principal); R10.30 Lower abdominal pain, unspecified
CPT/HCPCS: 36415; 80053; 83690; 84484; 85025; 93005; J1630; J7030

== ENCOUNTER 2025-01-18 09:38 | Emergency (ER) | payer SELFPAY ==
--- OUTSIDE RECORDS SUMMARY | 2025-01-18 09:42 | XMS REPORT | Continuity of Care Document ---
Author Name Unknown Address [address] [facility] [place] [address] [facility] Address [address] [place] [address] Care Team Providers Care [employer] Name Role Phone PCP, PATIENT DOES NOT HAVE A Primary Care Physic sabra Unavailable JOHNATHAN RESENDEZ Attending Clinician Unavailable Josse Wyman MD Attending Clinician [phone] Johnathan Resendez DO Attending Clinician [phone] Jesus DEE Attending Clinician Unavailable Jesus Sanchez Attending Clinician [phone] Doctor Unassigned, [place] Attending Clinician U Nadeem Ramesh MD Attending Clinician [phone] JOSSE WYMAN Admitting Clinician Unavailable Jesus DEE Admitting Clinician Unavailable Problems Condition Name Condition Details Condition Category Status Onset Date Resolution Date Last Treatment Date Treating Clinician Comments Source Intractabl e vomiting Intractabl e vomiting Disease Active 11-15 00:00: 00 [facility] acute hospital Nausea and vomiting Nausea and vomiting Disease Active 11-11 00:00: 00 General acute hospital Intractabl e nausea and vomiting Intractabl e nausea and vomiting Disease Active 11-10 00:00: 00 [facility] acute hospital Lower abdominal pain Lower abdominal pain Disease Active 11-10 00:00: 00 Overview: Formattin g of this note might be different from the original. Added automatic ally from request for surgery [id number] General acute hospital Allergies, Adverse Reactions, Alerts Allergy Name Allergy Type Status Severity Reaction(s) Onset Date Inactive Date Treating Clinician Comments Source NO KNOWN ALLERGIE S Drug Class Active General acute hospital Social History Social Habit Start Date Stop Date Quantity Comments Source [facility] SDOH Alcohol Frequency [facility] History SDOH Alcohol Std Drinks [facility] History SDOH Alcohol Binge [facility] Exposure to SARS-CoV-2 (event) 2022-03-14 00:00:00 2022-03-24 15:58:00 Unable to assess [facility] History of Social function 2019-05-05 00:00:00 2019-05-05 00:00:00 [facility] Alcohol intake 2019-03-03 00:00:00 2019-03-03 00:00:00 Current drinker of alcohol (finding) [facility] Tobacco use and exposure 2018-11-10 00:00:00 2018-11-10 00:00:00 Smokeless tobacco non-user [facility] Alcohol Comment 2018-11-10 00:00:00 2018-11-10 00:00:00 socially [facility] Sex Assigned At 1970 00:00:00 1970 00:00:00 [facility] Smoking Status Start Date Stop Date Source Never smoked tobacco General acute hospital Medications Ordered Medication Name Filled Medication Name Start Date Stop Date Current Medication? Ordering Clinician Indication Dosage Frequency Signature (SIG) Comments Components Source FENTanyl PF (SUBLIMAZE (PF)) injection 50 mcg 2022-10 00:00: 00 07-28 00:27 :00 No 50ug 50 mcg, Slow IV Push, ONCE, 1 dose, On Thu07/27/23 at 1900, Routine [facility] acute hospital iopamidol (ISOVUE 370-500 mL) injection 70 mL 2022-10 23:55: 00 07-27 23:55 :00 No [id number] 70mL 70 mL, Intravenou s, ONCE, 1 dose, On Thu07/27/23 at 1915, Routine [facility] acute hospital NaCl 0.9% (NS) bolus infusion 1,000 mL 2022-10 0 23:30: 00 07-28 01:10 :00 No 1000mL at 999 mL/hr, 1,000 mL, IV Infusion, ONCE, 1 dose, On Thu07/27/23 at 1830, CHRISTOPHER General acute hospital amoxicillin -clavulanat e 875-125 mg per tablet 2022-10 0 00:00: 00 Yes [id number] 1{tbl} Take 1 tablet by mouth every 12 (twelve) hours. General acute hospital ondansetron (ZOFRAN (PF)) injection 4 mg 03-25 01:45: 00 03-25 00:53 :00 No 4mg 4 mg, Slow IV Push, ONCE, 1 dose, On Thu03/24/22 at 2044, CHRISTOPHER General acute hospital NaCl 0.9% (NS) bolus infusion 1,000 mL 03-25 01:45: 00 03-25 03:00 :00 No 1000mL at 999 mL/hr, 1,000 mL, IV Infusion, ONCE, 1 dose, On Thu03/24/22 at 2044, STAT General acute hospital NaCl 0.9% (NS) bolus infusion 1,000 mL 03-25 00:15: 00 03-25 00:54 :00 No 1000mL at 999 mL/hr, 1,000 mL, IV Infusion, ONCE, 1 dose, On Thu03/24/22 at 1915, STAT General acute hospital maalox:diph enhydrAMINE :lidocaine 2 % viscous 1:1:1 ([facility]) oral suspension 15 mL 03-25 00:15: 00 03-24 23:30 :00 No 15mL 15 mL, Oral (Swish & Swallow), ONCE, 1 dose, On Thu03/24/22 at 1914, Routine General acute hospital famotidine (PEPCID (PF)) injection 20 mg 03-25 00:15: 00 03-24 23:30 :00 No 20mg 20 mg, Slow IV Push, ONCE, 1 dose, On Thu03/24/22 at 1915, CHRISTOPHER General acute hospital iopamidol (ISOVUE 370-500 mL) injection 75 mL 03-24 23:17: 00 03-24 23:18 :00 No [id number] 75mL 75 mL, Intravenou s, ONCE, 1 dose, On Thu03/24/22 at 1830, Routine General acute hospital ondansetron (ZOFRAN (PF)) injection 4 mg 03-24 22:30: 00 03-24 22:17 :00 No 4mg 4 mg, Slow IV Push, ONCE, 1 dose, On Thu03/24/22 at 1730, CHRISTOPHER General acute hospital ondansetron (ZOFRAN) 4 mg tablet 03-24 00:00: 00 Yes [id number] 4mg Take 1 tablet by mouth every 8 (eight) hours as needed for Nausea and Vomiting (N/V). [facility] acute hospital famotidine (PEPCID) 40 mg tablet 03-24 00:00: 00 Yes [id number] 40mg Take 1 tablet by mouth daily. [facility] acute hospital proMETHazin e 25 mg tablet 02-18 00:00: 00 Yes [id number] 25mg Take 1 tablet by mouth every 6 (six) hours as needed for Nausea and Vomiting (N/V). [facility] acute hospital pantoprazol e 40 mg EC tablet 02-18 00:00: 00 Yes [id number] 40mg Take 1 tablet by mouth daily. [facility] acute hospital Capsaicin 0.025 % PtMd 02-16 00:00: 00 Yes [id number] Apply to area(s) as needed for Nausea and Vomiting (N/V). [facility] acute hospital dicyclomine 10 mg capsule 02-16 00:00: 00 Yes [id number] 10mg Take 1 capsule by mouth every 8 (eight) hours as needed for Abdominal pain. [facility] acute hospital ondansetron 4 mg disintegrat ing tablet 2021-0 4-24 00:00: 00 Yes [id number] 4mg Take 1 tablet by mouth every 8 (eight) hours as needed for Nausea and Vomiting (N/V). [facility] acute hospital sucralfate (CARAFATE) 100 mg/mL suspension 03-03 00:00: 00 Yes [id number] 1000mg Take 10 mL by mouth before meals and at bedtime. [facility] acute hospital benzonatate 100 mg capsule 03-03 00:00: 00 Yes [id number] 100mg Take 1 capsule by mouth 3 (three) times daily as needed for Cough. General acute hospital ciprofloxac in HCl 500 mg tablet 02-25 00:00: 00 Yes [id number] 500mg Take 1 tablet by mouth 2 (two) times daily. General acute hospital proMETHazin e 25 mg tablet 02-25 00:00: 00 Yes [id number] 25mg Take 1 tablet by mouth every 6 (six) hours as needed for Nausea and Vomiting (N/V). [facility] acute hospital ciprofloxac in HCl 500 mg tablet 11-17 00:00: 00 Yes [id number] 500mg Take 1 tablet by mouth 2 (two) times daily. General acute hospital Vital Signs Vital Name Observation Time Observation Value Comments S ource Systolic blood pressure 2023-07-28 01:00:00 128 mm[Hg] [facility] Diastolic blood pressure 2023-07-28 01:00:00 80 mm[Hg] [facility] Heart rate 2023-07-28 01:00:00 81 /min [facility] Respiratory rate 2023-07-28 01:00:00 16 /min [facility] Oxygen saturation in Arterial blood by Pulse oximetry 2023-07-28 01:00:00 95 /min [facility] Body temperature 2023-07-27 22:25:00 36.67 Shivani [facility] Body height 2023-07-27 22:25:00 172.7 cm [facility] Body weight 2023-07-27 22:25:00 70.308 kg [facility] BMI 2023-07-27 22:25:00 23.57 kg/m2 [facility] Respiratory rate 2022-03-25 01:46:00 20 /min [facility] Oxygen saturation in Arterial blood by Pulse oximetry 2022-03-25 01:46:00 96 /min [facility] Systolic blood pressure 2022-03-25 01:46:00 110 mm[Hg] [facility] Diastolic blood pressure 2022-03-25 01:46:00 69 mm[Hg] [facility] Heart rate 2022-03-25 01:46:00 67 /min [facility] Body temperature 2022-03-25 01:46:00 37.28 Shivani [facility] Body height 2022-03-24 21:08:00 172.7 cm [facility] Body weight 2022-03-24 21:08:00 81.647 kg [facility] BMI 2022-03-24 21:08:00 27.37 kg/m2 [facility] Procedures Procedure Date / Time Performed Performing Clinicia n Source LACTIC ACID WHOLE BLOOD 2023-07-27 23:30:00 Josse Wyman [facility] COMP. METABOLIC PANEL ([id number]) 2023-07-27 23:29:00 Josse Wyman [facility] CBC WITH DIFF 2023-07-27 23:29:00 [facility] CONSENT/REFUSAL FOR DIAGNOSIS AND TREATMENT 2023-07-27 22:02:23 Doctor Unassigned, [place] [facility] CT ABDOMEN PELVIS W CONTRAST 2022-03-24 23:24:00 Jesus Dee [facility] URINALYSIS 2022-03-24 22:46:00 Jesus Dee [facility] LIPASE 2022-03-24 22:11:00 Jesus Dee [facility] MAGNESIUM 2022-03-24 22:11:00 Jesus Dee [facility] TROPONIN I 2022-03-24 22:11:00 Jesus Dee [facility] COMP. METABOLIC PANEL ([id number]) 2022-03-24 22:11:00 Jesus Dee [facility] CBC WITH DIFF 2022-03-24 22:11:00 Jesus Dee [facility] ASSIGNMENT OF BENEFITS 2022-03-24 21:55:11 Docto r Unassigned, [place] [facility] NOTICE OF PRIVACY PRACTICES 2022-03-24 20:57:45 Doctor Unassigned, [place] [facility] CONSENT/REFUSAL FOR DIAGNOSIS AND TREATMENT 2022-03-24 20:57:17 Doctor Unassigned, [place] [facility] Encounters Start Date/Time End Date/Time Encounter Type Admission Type Attending [facility] Care Department Encounter ID Source 2024-12-29 15:22:12 2024-12-29 15:22:12 Outpatient [facility] [place] [id number] [facility] 2024-11-30 08:30:35 2024-11-30 08:30:35 Outpatient [facility] [place] [id number] [facility] 2024-11-17 15:50:19 2024-11-17 15:50:19 Outpatient [facility] [place] [id number] [facility] P[facility] 2024-11-09 10:01:31 2024-11-09 10:01:31 Outpatient [facility] [place] [id number] [facility] Pang 2024-10-27 08:39:24 2024-10-27 08:39:24 Outpatient [facility] [place] [id number] [facility] 2024-04-21 16:11:02 2024-04-21 16:11:02 Outpatient [facility] [place] [id number] [facility] 2023-07-27 17:28:00 2023-07-27 20:22:00 Emergency JOHNATHAN JAY [facility] ERT [id number] General acute hospital 2023-07-27 17:28:00 2023-07-27 20:22:00 Emergency Josse Wyman Phillip [facility] [id number] 350.1.13.10 [id number] [id number] General acute hospital 2023-07-20 14:55:54 2023-07-20 14:55:54 Outpatient [facility] [id number] [facility] Pang 2022-03-24 16:10:00 2022-03-24 22:02:00 Emergency X Jesus DEE [facility] ERT [id number] General acute hospital 2022-03-24 16:10:00 2022-03-24 22:02:00 Emergency Jesus Dee [facility] [id number] 350.1.13.10 [id number] [id number] General acute hospital 2022-03-24 00:00:00 2022-03-24 00:00:00 Orders Only Doctor Unassigned, [place] [facility] [id number] 350.1.13.10 [id number] [id number] General acute hospital 2021-02-18 13:21:00 2021-02-18 16:27:00 Emergency Nadeem Grande [facility] 1.2.840.114 350.1.13.10 4.2.7.2.686 [id number] 2021-02-18 13:15:00 2021-02-18 13:15:00 Emergency X [facility] ERT [id number] General acute hospital 2021-02-16 21:09:00 2021-02-17 00:08:00 Emergency Johnathan Resendez [facility] [id number] [id number] 4.2.7.2.686 [id number] 2021-02-16 21:03:00 2021-02-16 21:03:00 Emergency X [facility] ERT [id number] General acute hospital Results Test Description Test Time Test Comments Results Result Co mments Source [facility] WITH [id number] 00:06:53* Test Item Value Reference Range Interpretation Comme nts WBC (test code = 6690-2) 16.97 See_Comment H [Automated message] The system which generated this result transmitted reference range: 4.20 - 10.70 10*3/?L. The reference range was not used to interpret this result as normal/abnormal. RBC (test code = 789-8) 5.20 See_Comment [Automated message] The system which generated this result transmitted reference range: 4.26 - 5.52 10*6/?L. The reference range was not used to interpret this result as normal/abnormal. HGB (test code = 718-7) 16.2 g/dL 12.2-16.4 HCT (test code = 4544-3) 47.1 % 38.4-49.3 MCV (test code = 787-2) 90.6 fL 81.7-95.6 MCH (test code = 785-6) 31.2 pg 26.1-32.7 MCHC (test code = 786-4) 34.4 g/dL 31.2-35.0 RDW-SD (test code = 60653-9) 40.4 fL 38.5-51.6 RDW-CV (test code = 788-0) 12.2 % 12.1-15.4 PLT (test code = 777-3) 215 See_Comment [Automated message] The system which generated this result transmitted reference range: 150 - 328 10*3/?L. The reference range was not used to interpret this result as normal/abnormal. MPV (test code = 94947-7) 12.0 fL 9.8-13.0 NRBC/100 WBC (test code = 2911388712) 0.0 See_Comment [Automated message] The system which generated this result transmitted reference range: 0.0 - 10.0 /100 WBCs. The reference range was not used to interpret this result as normal/abnormal. NRBC x10^3 (test code = 0092770874) See_Comment [Automated message] The system which generated this result transmitted reference range: 10*3/?L. The reference range was not used to interpret this result as normal/abnormal. GRAN MAT (NEUT) % (test code = 770-8) 81.3 % IMM GRAN % (test code = 4504616514) 0.40 % LYMPH % (test code = 736-9) 10.7 % MONO % (test code = 5905-5) 7.0 % EOS % (test code = 713-8) 0.2 % BASO % (test code = 706-2) 0.4 % GRAN MAT x10^3(ANC) (test code = 0157104179) 13.80 10*3/uL 1.99-6.95 H IMM GRAN x10^3 (test code = 3493447655) 0.07 10*3/uL 0.00-0.06 H LYMPH x10^3 (test code = 731-0) 1.81 10*3/uL 1.09-3.23 MONO x10^3 (test code = 742-7) 1.18 10*3/uL 0.36-1.02 H EOS x10^3 (test code = 711-2) 0.04 10*3/uL 0.06-0.53 L BASO x10^3 (test code = 704-7) 0.07 10*3/uL 0.01-0.09 Lab Interpretation (test code = 69665-8) Abnormal [facility] [id number] 23:36:46* Test Item Value Reference Range Interpretation Comme nts LACTIC ACID (test code = 7227623037) 1.18 mmol/L 0.50-2.20 Lab Interpretation (test cod e = 64689-5) Normal [facility] [id number] 22:56:15* Test Item Value Reference Range Interpretation Comments TROPONIN I (test code = 9035081430) <0.012 See_Comment [Automated message] The system which generated this result transmitted reference range: <=0.034 ng/mL. The reference range was not used to interpret this result as normal/abnormal. KALI (test code = KALI) Reference (Normal) [...] to patient's use of biotin. Lab Interpretation (test code = 76826-4) Normal [facility]2022-[facility]-30 22:44:57* Test Item Value Reference Range Interpretation Comme nts MAGNESIUM (test code = 5431720167) 1.9 mg/dL 1.7-2.4 Lab Interpretation (test cod e = 17942-7) Normal [facility] MET[facility]OLIC PANEL (86464)2022-03-24 22:44:37* Test Item Value Reference Range Interpretation Comme nts NA (test code = 8793900002) 142 mmol/L 135-145 K (test code = 7690745331) 4.6 mmol/L 3.5-5.0 CL (test code = 4185629340) 104 mmol/L 98-108 CO2 TOTAL (test code = 3868199698) 24 mmol/L 23-31 AGAP (test code = 0572264742) 2-16 BUN (test code = 4431888626) 13 mg/dL 7-23 GLUCOSE (test code = 0427320341) 130 mg/dL 70-110 H CREATININE (test code = 3150770381) 0.93 mg/dL 0.60-1.25 TOTAL BILI (test code = 3782533427) 0.5 mg/dL 0.1-1.1 CALCIUM (test code = 6488509348) 9.6 mg/dL 8.6-10.6 T PROTEIN (test code = 1086051881) 7.6 g/dL 6.3-8.2 ALBUMIN (test code = 3008112287) 4.8 g/dL 3.5-5.0 ALK PHOS (test code = 9514216517) 63 U/L 34-122 ALTv (test code = 1742-6) 16 U/L 5-50 AST(SGOT) (test code = 5135082896) 21 U/L 13-40 eGFR (test code = 9649459102) mL/min/1.73m2 KALI (test code = KALI) Association of [...] or abnormalities in imaging tests). Lab Interpretation (test code = 14915-7) Abnormal [facility] 22:44:37* Test Item Value Reference Range Interpretation Comme nts LIPASE (test code = 7994779060) 138 U/L 0-220 Lab Interpretation (test cod e = 91660-9) Normal [facility] [id number] 22:30:54* Test Item Value Reference Range Interpretation Comme nts WBC (test code = 6690-2) See_Comment H [Automated message] The system which generated this result transmitted reference range: 4.20 - 10.70 10*3/?L. The reference range was not used to interpret this result as normal/abnormal. RBC (test code = 789-8) See_Comment [Automated message] The system which generated this result transmitted reference range: 4.26 - 5.52 10*6/?L. The reference range was not used to interpret this result as normal/abnormal. HGB (test code = 718-7) 16.0 g/dL 12.2-16.4 HCT (test code = 4544-3) 47.8 % 38.4-49.3 MCV (test code = 787-2) 89.8 fL 81.7-95.6 MCH (test code = 785-6) 30.1 pg 26.1-32.7 MCHC (test code = 786-4) 33.5 g/dL 31.2-35.0 RDW-SD (test code = 80429-3) 39.8 fL 38.5-51.6 RDW-CV (test code = 788-0) 12.1 % 12.1-15.4 PLT (test code = 777-3) See_Comment [Automated message] The system which generated this result transmitted reference range: 150 - 328 10*3/?L. The reference range was not used to interpret this result as normal/abnormal. MPV (test code = 55270-7) 12.0 fL 9.8-13.0 NRBC/100 WBC (test code = 5150336996) See_Comment [Automated message] The system which generated this result transmitted reference range: 0.0 - 10.0 /100 WBCs. The reference range was not used to interpret this result as normal/abnormal. NRBC x10^3 (test code = 9999324535) <0.01 See_Comment [Automated message] The system which generated this result transmitted reference range: 10*3/?L. The reference range was not used to interpret this result as normal/abnormal. GRAN MAT (NEUT) % (test code = 770-8) 86.7 % IMM GRAN % (test code = 0491790726) 0.40 % LYMPH % (test code = 736-9) 8.7 % MONO % (test code = 5905-5) 3.8 % EOS % (test code = 713-8) 0.1 % BASO % (test code = 706-2) 0.3 % GRAN MAT x10^3(ANC) (test code = 9541877889) 11.82 10*3/uL 1.99-6.95 H IMM GRAN x10^3 (test code = 2439120073) 0.05 10*3/uL 0.00-0.06 LYMPH x10^3 (test code = 731-0) 1.18 10*3/uL 1.09-3.23 MONO x10^3 (test code = 742-7) 0.52 10*3/uL 0.36-1.02 EOS x10^3 (test code = 711-2) <0.03 0.06-0.53 L BASO x10^3 (test code = 704-7) 0.04 10*3/uL 0.01-0.09 Lab Interpretation (test code = 20934-1) Abnormal [facility]"
[2025-01-18] MEDS ORDERED: KETOROLAC 30 MG/ML INJ ONE (10:09)
[2025-01-18] MEDS ORDERED: ONDANSETRON 4 MG/2 ML VIAL ONE (10:09)
[2025-01-18] MEDS ORDERED: NA CHLORIDE 0.9% 1,000 ML ONE (10:09)
[2025-01-18 10:13] LABS: Absolute Basophils 0.1 K/uL (0-0.5); Absolute Lymphocytes (CBC) 0.8 K/uL (0.7-4.9); Absolute Monocytes 0.3 K/uL (0.1-1.3); Absolute Neutrophil 10.8 K/uL (1.8-8.0); Basophils % 0.7 % (0-1.3); Eosinophils % 0.3 % (0-4.4); Hematocrit 45.7 % (39.6-49.0); Hemoglobin 15.3 g/dL (13.6-17.9); Lymphocytes % 6.6 % (15.3-44.8); MCH 30.8 pg (27.0-35.0); MCHC 33.5 g/dL (32.0-36.0); MCV 91.8 fL (80-100); MPV 9.7 fL (7.6-11.3); Monocytes % 2.5 % (3.3-12.3); Neutrophils % 89.9 % (41.7-73.7); Nucleated Red Blood Cells % 0.1 % (0-0); Platelets 218 thou/uL (152-406); RBC Red Blood Cell Count 4.98 M/uL (4.33-5.43); Red Cell Distribution Width 12.7 % (12.1-15.2)
[2025-01-18 10:30] LABS: Albumin 4.1 g/dL (3.4-5.0); Bilirubin Total 0.7 mg/dL (0.2-1.0); Globulin 4.2 g/dL (2.3-3.5); Protein, Total 8.3 g/dL (6.4-8.2)
[2025-01-18 10:47] LABS: Blood Morphology Comment NOT SEEN (NOT SEEN); Platelet Estimate ADEQ; Platelets, Giant RARE; White Blood Cell Scan OK (OK)
--- NOTE | 2025-01-18 11:28 | RAD REPORT ---
EXAMINATION: CT ABDOMEN AND PELVIS WITH CONTRAST CLINICAL INDICATION: ABD PAIN TECHNIQUE: CT abdomen and pelvis was performed, after the administration of IV contrast[facility] Axial, sagittal and coronal reconstructions were obtained. One or more of the following dose reduction techniques were used: Automated exposure control, adjustment of the mA and k V according to patient size, and iterative reconstruction. Unless otherwise specified, incidental findings do not require dedicated imaging follow-up. COMPARISON: 10/28/2023 FINDINGS: LOWER CHEST: The visualized lung bases are clear. LIVER: Normal in size and contour. No focal lesion. Cholecystectomy clips. SPLEEN: Normal size. No focal lesion. PANCREAS: No mass, ductal dilation, or shanta-pancreatic fluid. ADRENALS: Normal; no mass. KIDNEYS: Normal size and contour. No hydronephrosis. Punctate left renal calculus. Small benign renal cyst. GASTROINTESTINAL TRACT: Segment of the sigmoid colon shows numerous diverticula and appears thickened . This segment measures about 7 cm. There is mild surrounding inflammatory changes. No free air or bowel obstruction. No free fluid. APPENDIX: Normal appendix. LYMPH NODES: No lymphadenopathy. MUSCULOSKELETAL: No acute or suspicious osseous abnormality. IMPRESSION: 7 cm length of sigmoid colon shows numerous diverticula is significantly thickened. Mild surrounding formation. Mild acute diverticulitis versus mass lesion is primary differential. Colonoscopy follow-up would be recommended.
--- NOTE | 2025-01-18 12:03 | ER ---
Nurse's Notes [facility] Name: Bernard Irving Age: 54 yrs Sex: Male : 1970 Arrival Date: 01/18/2025 Time: 09:38 Bed 15 Private MD: Diagnosis: Diverticulitis of large intestine without perforation or abscess without bleeding Presentation: 01/18 09:44 Chief complaint: Chief complaint: Patient states: N/V with abdominal pain for 3 days. ll1 Coronavirus screen: Client denies travel out of the [place] in the last 14 days. At this time, the client does not indicate any symptoms associated with coronavirus-19. Ebola Screen: Patient denies travel to an Ebola-affected area in the 21 days before illness onset. Initial Sepsis Screen: Does the patient meet any 2 criteria? No. Patient's initial sepsis screen is negative. Does the patient have a suspected source of infection? No. Patient's initial sepsis screen is negative. Risk Assessment: Do you want to hurt yourself or someone else? Patient reports no desire to harm self or others. 09:44 Method Of Arrival: Ambulatory [facility] 09:44 Acuity: ASH 3 ll1 09:47 Onset of symptoms was January 15, 2025. 1 Triage Assessment: 09:48 General: Appears uncomfortable, Behavior is calm, cooperative, appropriate for age. ll1 Pain: Complains of pain in abdomen Pain currently is 8 out of 10 on a pain scale. Quality of pain is described as aching, crampy. GI: Reports lower abdominal pain, upper abdominal pain, cramping, nausea, vomiting. Historical: - Allergies: 09:44 No Known Allergies; ll1 - PMHx: 09:44 acid reflux; Diverticulitis; ll1 - PSHx: 09:44 Cholecystectomy; ll1 - Immunization history:: Adult Immunizations up to date. - Infectious Disease History:: Denies. - Social history:: Smoking status: Patient denies any tobacco usage or history of. Screenin:18 Abuse screen: Denies threats or abuse. Nutritional screening: No deficits noted. ap3 Tuberculosis screening: No symptoms or risk factors identified. 10:18 [facility] ED Fall Risk Assessment (Adult) History of falling in the last 3 months, ap3 including since admission No falls in past 3 months (0 pts) Confusion or Disorientation No (0 pts) Intoxicated or Sedated No (0 pts) Impaired Gait No (0 pts) Mobility Assist Device Used No (0 pt) Altered Elimination No (0 pt) Score/Fall Risk Level 0 - 2 = Low Risk Oriented to surroundings, Maintained a safe environment, Educated pt \T\ family on fall prevention, incl call for assistance when getting out of bed, Assessed \T\ reinforced patient's understanding of fall precautions, Hourly rounding (assess needs \T\ fall precautionary measures) done, Used ambulatory aids as needed (educated on \T\ assisted with). Assessment: 10:16 General: Appears in no apparent distress. Behavior is calm, cooperative, appropriate ap3 for age. Pain: Complains of pain in abdomen. Neuro: Level of Consciousness is awake, alert, obeys commands, Oriented to person, place, time, situation, Appropriate for age. Cardiovascular: Patient's skin is warm and dry. Respiratory: Airway is patent Respiratory effort is even, unlabored, Respiratory pattern is regular, symmetrical. GI: Abdomen is non-distended, Reports nausea, vomiting. Vital Signs: 09:44 BP 119 / 80; Pulse 92; Resp 16; Pulse Ox 100% ; Weight 74.84 kg; Height 5 ft. 8 in. ; ll1 Pain 8/10; 11:29 BP 129 / 71; Pulse 78; Resp 18; Pulse Ox 100% on R/A; ap3 12:36 BP 125 / 78; Pulse 77; Resp 18; Pulse Ox 100% on R/A; ap3 09:44 Body Mass Index 25.09 (74.84 kg, 172.72 cm) ll1 09:44 Pain Scale: Adult ll1 ED Course: 09:41 Patient arrived in ED. cj3 09:42 Froilan Hanks MD is Attending Physician. ec2 09:45 Triage completed. ll1 09:48 Arm band placed on Patient placed in an exam room, on a stretcher. ll1 10:00 Amna Garcia, ALISHA is Primary Nurse. ap3 10:03 CBC with Diff Sent. bc6 10:03 CMP Sent. bc6 10:03 Lipase Sent. bc6 10:03 Initial lab(s) drawn, by [facility], sent to lab. Inserted saline lock: 20 gauge in right bc6 antecubital area, using aseptic technique. Blood collected. Flushed with 10 mL NS. 10:46 CT Abd/Pelvis - IV Contrast Only In Process Unspecified. EDMS 12:37 Patient has correct armband on for positive identification. Bed in low position. Call ap3 light in reach. Side rails up X2. Adult w/ patient. Provided Education on: medications prior to administrations . Pulse ox on. NIBP on. 12:37 No provider procedures requiring assistance completed. IV discontinued, intact, ap3 bleeding controlled, No redness/swelling at site. Pressure dressing applied. Administered Medications: 10:16 Drug: TORadol - Ketorolac IVP 15 mg IVP once Route: IVP; Site: right antecubital; ap3 12:36 Follow up: Response: No adverse reaction ap3 10:16 Drug: Ondansetron IVP 4 mg IVP once; over 2 minutes Route: IVP; Site: right antecubital;ap3 12:36 Follow up: Response: No adverse reaction ap3 10:16 Drug: NS 0.9% IV 1000 ml IV at 1 bolus Per protocol; to be given as a bolus over 60 ap3 minutes Route: IV; Rate: 1 bolus; Site: right antecubital; 12:36 Follow up: IV Status: Completed infusion; IV Intake: 1000ml ap3 12:35 Drug: morphine IVP or IV 2 mg IVP once over 4 mins Route: IVP; Infused Over: 4 mins; ap3 Site: right antecubital; 12:41 Follow up: Response: No adverse reaction; Medication administered at discharge. ap3 12:36 Drug: Amoxicillin-Clavulanate PO 875 mg PO once Route: PO; ap3 12:41 Follow up: Response: No adverse reaction ap3 Medication: 12:37 VIS not applicable for this client. ap3 Intake: 12:36 IV: 1000ml; Total: 1000ml. ap3 Outcome: 12:03 Discharge ordered by . ec2 12:37 Condition: good ap3 12:40 Discharged to home ambulatory, with family, ap3 12:40 Discharge instructions given to patient, Instructed on discharge instructions, follow up and referral plans. medication usage, Demonstrated understanding of instructions, follow-up care, medications, Prescriptions given X 2, 12:40 Patient left the ED. ap3 Signatures: Dispatcher [employer] EDMS Amna Garcia RN RN ap3 Vilma Crump RN RN ll1 Eda Cortes bc6 Froilan Hanks MD MD ec2 Lachelle Mast cj3 Corrections: (The following items were deleted from the chart) 09:48 09:44 Chief complaint: ll1 ll1
--- NOTE | 2025-01-18 12:04 | EDPHYS ---
Physician Documentation [facility] Name: Bernard Irving Age: 54 yrs Sex: Male : 1970 Arrival Date: 01/18/2025 Time: 09:38 Bed 15 Private MD: ED Physician Froilan Hanks HPI: 01/18 09:54 This 54 yrs old Male presents to ER via Ambulatory with complaints of ec2 Nausea/Vomiting. 09:54 Patient arrives today for evaluation of abdominal pain along with nausea and vomiting ec2 along with diarrhea. Patient reports that he has a history of chronic constipation and has been taking Linzess and is having regular diarrheal stools. Patient reports generalized abdominal pain worse in the left abdomen, patient denies urinary complaints. Reports that he is seeing GI outpatient.. Historical: - Allergies: 09:44 No Known Allergies; ll1 - PMHx: 09:44 acid reflux; Diverticulitis; ll1 - PSHx: 09:44 Cholecystectomy; ll1 - Immunization history:: Adult Immunizations up to date. - Infectious Disease History:: Denies. - Social history:: Smoking status: Patient denies any tobacco usage or history of. ROS: 09:54 Constitutional: as per hpi ec2 Exam: 09:54 Constitutional: GEN: NAD Head: atraumatic Eyes: EOMI Ears: External ears are ec2 normal. CV: regular rate LUNGS: no respiratory distress ABD: non-distended, soft, not guarding, generally tender, not rigid SKIN: no evidence of rashes MSK: no evidence of trauma Vital Signs: 09:44 BP 119 / 80; Pulse 92; Resp 16; Pulse Ox 100% ; Weight 74.84 kg; Height 5 ft. 8 in. ; ll1 Pain 8/10; 11:29 BP 129 / 71; Pulse 78; Resp 18; Pulse Ox 100% on R/A; ap3 12:36 BP 125 / 78; Pulse 77; Resp 18; Pulse Ox 100% on R/A; ap3 09:44 Body Mass Index 25.09 (74.84 kg, 172.72 cm) ll1 09:44 Pain Scale: Adult ll1 MDM: 09:47 Medical Screening Exam initiated ec2 09:55 Data reviewed: vital signs, nurses notes. ED course: Patient arrives today for ec2 evaluation of abdominal pain along with nausea and vomiting diarrhea. Examination yields abdominal findings as above. Will obtain lab work, CT imaging and treat patient symptoms.. 12:03 ED course: CT scan shows possible diverticulitis versus mass, instructed the patient ec2 with normal antibiotics and follow-up with GI. Return precautions given.. 01/18 09:53 Order name: CBC with Diff; Complete Time: 10:53 ec2 01/18 09:53 Order name: CMP; Complete Time: 10:38 ec2 01/18 09:53 Order name: Lipase; Complete Time: 10:38 ec2 01/18 10:48 Order name: CBC Smear Scan; Complete Time: 10:53 EDMS 01/18 09:53 Order name: CT Abd/Pelvis - IV Contrast Only; Complete Time: 11:58 ec2 01/18 09:53 Order name: IV Saline Lock; Complete Time: 10:03 ec2 01/18 09:53 Order name: Labs collected and sent; Complete Time: 10:03 ec2 Administered Medications: 10:16 Drug: TORadol - Ketorolac IVP 15 mg IVP once Route: IVP; Site: right antecubital; ap3 12:36 Follow up: Response: No adverse reaction ap3 10:16 Drug: Ondansetron IVP 4 mg IVP once; over 2 minutes Route: IVP; Site: right antecubital;ap3 12:36 Follow up: Response: No adverse reaction ap3 10:16 Drug: NS 0.9% IV 1000 ml IV at 1 bolus Per protocol; to be given as a bolus over 60 ap3 minutes Route: IV; Rate: 1 bolus; Site: right antecubital; 12:36 Follow up: IV Status: Completed infusion; IV Intake: 1000ml ap3 12:35 Drug: morphine IVP or IV 2 mg IVP once over 4 mins Route: IVP; Infused Over: 4 mins; ap3 Site: right antecubital; 12:41 Follow up: Response: No adverse reaction; Medication administered at discharge. ap3 12:36 Drug: Amoxicillin-Clavulanate PO 875 mg PO once Route: PO; ap3 12:41 Follow up: Response: No adverse reaction ap3 Disposition Summary: 01/18/25 12:03 Discharge Ordered Notes: Location: Home ec2 Condition: Stable ec2 Diagnosis - Diverticulitis of large intestine without perforation or abscess without bleeding ec2 Followup: ec2 - With: Private Physician - When: - Reason: Re-evaluation by your physician Discharge Instructions: - Discharge Summary Sheet ec2 - Diverticulitis, [id number] ec2 Forms: - Medication Reconciliation Form ec2 - Antibiotic Education ec2 - Prescription Opioid Use ec2 - Patient Portal Instructions ec2 - Leadership Thank You Letter ec2 Prescriptions: - Augmentin 875-125 mg Oral Tablet - take 1 tablet ORAL route every 12 hours for 10 days; 20 tablet; Refills: 0, ec2 Product Selection Permitted - Zofran 4 mg Oral Tablet - take 1 tablet ORAL route every 12 hours As needed; 20 tablet; Refills: 0, ec2 Product Selection Permitted Signatures: Dispatcher [employer] Amna Swain RN RN ap3 Vilma Crump RN RN ll1 Froilan Hanks MD MD ec2
[2025-01-18] MEDS ORDERED: MORPHINE 2 MG/ML SYR ONE (12:15)
[2025-01-18] MEDS ORDERED: AMOX/K CLAV 875 MG TAB ONE (12:15)
[2025-01-18 13:07] VITALS: O2SAT 100
[2025-01-18 13:18] VITALS: BP 125/78
== END 2025-01-18 12:40 | disposition home or self-care (01) ==
LOC: ER 09:38
DX: K57.32 Diverticulitis of large intestine without perforation or abscess without bleeding (principal)
CPT/HCPCS: 36415; 74177; 80053; 83690; 85025; J2270; J2405; J7030; Q9967

== ENCOUNTER 2025-01-21 15:37 | Inpatient (IN) | payer OTHER, SELFPAY ==
--- OUTSIDE RECORDS SUMMARY | 2025-01-21 15:40 | XMS REPORT | Continuity of Care Document ---
Author Name Unknown Address [address] [facility] [place] [address] [facility] Address [address] [facility] [place] [address] Care Team Providers Care Adjudication Specialist Name Role Phone PCP, PATIENT DOES NOT HAVE A Primary Care Physic sabra Unavailable JOHNATHAN RESENDEZ Attending Clinician Unavailable Josse Wyman MD Attending Clinician [phone] Johnathan Resendez DO Attending Clinician [phone] Jesus DEE Attending Clinician Unavailable Jesus Sanchez Attending Clinician [phone] Doctor Unassigned, [place] Attending Clinician U Nadeem Ramesh MD Attending Clinician [phone] JOSSE WYMAN Admitting Clinician Unavailable Jesus DEE Admitting Clinician Unavailable Problems Condition Name Condition Details Condition Category Status Onset Date Resolution Date Last Treatment Date Treating Clinician Comments Source Intractabl e vomiting Intractabl e vomiting Disease Active 11-15 00:00: 00 [facility] Nausea and vomiting Nausea and vomiting Disease Active 11-11 00:00: 00 [facility] Intractabl e nausea and vomiting Intractabl e nausea and vomiting Disease Active 11-10 00:00: 00 [facility] Lower abdominal pain Lower abdominal pain Disease Active 11-10 00:00: 00 Overview: Formattin g of this note might be different from the original. Added automatic ally from request for surgery [id number] [facility] Allergies, Adverse Reactions, Alerts Allergy Name Allergy Type Status Severity Reaction(s) Onset Date Inactive Date Treating Clinician Comments Source NO KNOWN ALLERGIE S Drug Class Active [facility] Social History Social Habit Start Date Stop Date Quantity Comments Source [facility] Frequency [facility] History SDOH Alcohol Std Drinks [facility] History SDOH Alcohol Binge [facility] Exposure to SARS-CoV-2 (event) 2022-03-14 00:00:00 2022-03-24 15:58:00 Unable to assess [facility] History of Social function 2019-05-05 00:00:00 2019-05-05 00:00:00 [facility] Alcohol intake 2019-03-03 00:00:00 2019-03-03 00:00:00 Current drinker of alcohol (finding) [facility] Tobacco use and exposure 2018-11-10 00:00:00 2018-11-10 00:00:00 Smokeless tobacco non-user [facility] Alcohol Comment 2018-11-10 00:00:00 2018-11-10 00:00:00 socially [facility] Sex Assigned At 1970 00:00:00 1970 00:00:00 [facility] Smoking Status Start Date Stop Date Source Never smoked tobacco [facility] Medications Ordered Medication Name Filled Medication Name Start Date Stop Date Current Medication? Ordering Clinician Indication Dosage Frequency Signature (SIG) Comments Components Source FENTanyl PF (SUBLIMAZE (PF)) injection 50 mcg 2022-10 00:00: 00 07-28 00:27 :00 No 50ug 50 mcg, Slow IV Push, ONCE, 1 dose, On Thu07/27/23 at 1900, Routine [facility] iopamidol (ISOVUE 370-500 mL) injection 70 mL 2022-10 23:55: 00 07-27 23:55 :00 No [id number] 70mL 70 mL, Intravenou s, ONCE, 1 dose, On Thu07/27/23 at 1915, Routine [facility] NaCl 0.9% (NS) bolus infusion 1,000 mL 2022-10 0 23:30: 00 07-28 01:10 :00 No 1000mL at 999 mL/hr, 1,000 mL, IV Infusion, ONCE, 1 dose, On Thu07/27/23 at 1830, CHRISTOPHER [facility] amoxicillin -clavulanat e 875-125 mg per tablet 2022-10 0 00:00: 00 Yes [id number] 1{tbl} Take 1 tablet by mouth every 12 (twelve) hours. [facility] ondansetron (ZOFRAN (PF)) injection 4 mg 03-25 01:45: 00 03-25 00:53 :00 No 4mg 4 mg, Slow IV Push, ONCE, 1 dose, On Thu03/24/22 at 2044, CHRISTOPHER [facility] NaCl 0.9% (NS) bolus infusion 1,000 mL 03-25 01:45: 00 03-25 03:00 :00 No 1000mL at 999 mL/hr, 1,000 mL, IV Infusion, ONCE, 1 dose, On Thu03/24/22 at 2044, STAT [facility] NaCl 0.9% (NS) bolus infusion 1,000 mL 03-25 00:15: 00 03-25 00:54 :00 No 1000mL at 999 mL/hr, 1,000 mL, IV Infusion, ONCE, 1 dose, On Thu03/24/22 at 1915, STAT [facility] maalox:diph enhydrAMINE :lidocaine 2 % viscous 1:1:1 ([facility]) oral suspension 15 mL 03-25 00:15: 00 03-24 23:30 :00 No 15mL 15 mL, Oral (Swish & Swallow), ONCE, 1 dose, On Thu03/24/22 at 1914, Routine [facility] famotidine (PEPCID (PF)) injection 20 mg 03-25 00:15: 00 03-24 23:30 :00 No 20mg 20 mg, Slow IV Push, ONCE, 1 dose, On Thu03/24/22 at 1915, CHRISTOPHER [facility] iopamidol (ISOVUE 370-500 mL) injection 75 mL 03-24 23:17: 00 03-24 23:18 :00 No [id number] 75mL 75 mL, Intravenou s, ONCE, 1 dose, On Thu03/24/22 at 1830, Routine [facility] ondansetron (ZOFRAN (PF)) injection 4 mg 03-24 22:30: 00 03-24 22:17 :00 No 4mg 4 mg, Slow IV Push, ONCE, 1 dose, On Thu03/24/22 at 1730, CHRISTOPHER [facility] ondansetron (ZOFRAN) 4 mg tablet 03-24 00:00: 00 Yes [id number] 4mg Take 1 tablet by mouth every 8 (eight) hours as needed for Nausea and Vomiting (N/V). [facility] famotidine (PEPCID) 40 mg tablet 03-24 00:00: 00 Yes [id number] 40mg Take 1 tablet by mouth daily. [facility] proMETHazin e 25 mg tablet 02-18 00:00: 00 Yes [id number] 25mg Take 1 tablet by mouth every 6 (six) hours as needed for Nausea and Vomiting (N/V). [facility] pantoprazol e 40 mg EC tablet 02-18 00:00: 00 Yes [id number] 40mg Take 1 tablet by mouth daily. [facility] Capsaicin 0.025 % PtMd 02-16 00:00: 00 Yes [id number] Apply to area(s) as needed for Nausea and Vomiting (N/V). [facility] dicyclomine 10 mg capsule 02-16 00:00: 00 Yes [id number] 10mg Take 1 capsule by mouth every 8 (eight) hours as needed for Abdominal pain. [facility] ondansetron 4 mg disintegrat ing tablet 2021-0 4-24 00:00: 00 Yes [id number] 4mg Take 1 tablet by mouth every 8 (eight) hours as needed for Nausea and Vomiting (N/V). [facility] sucralfate (CARAFATE) 100 mg/mL suspension 03-03 00:00: 00 Yes [id number] 1000mg Take 10 mL by mouth before meals and at bedtime. [facility] benzonatate 100 mg capsule 03-03 00:00: 00 Yes [id number] 100mg Take 1 capsule by mouth 3 (three) times daily as needed for Cough. [facility] ciprofloxac in HCl 500 mg tablet 02-25 00:00: 00 Yes [id number] 500mg Take 1 tablet by mouth 2 (two) times daily. [facility] proMETHazin e 25 mg tablet 02-25 00:00: 00 Yes [id number] 25mg Take 1 tablet by mouth every 6 (six) hours as needed for Nausea and Vomiting (N/V). [facility] ciprofloxac in HCl 500 mg tablet 11-17 00:00: 00 Yes [id number] 500mg Take 1 tablet by mouth 2 (two) times daily. [facility] Vital Signs Vital Name Observation Time Observation Value Comments S ource Systolic blood pressure 2023-07-28 01:00:00 128 mm[Hg] [facility] Diastolic blood pressure 2023-07-28 01:00:00 80 mm[Hg] [facility] Heart rate 2023-07-28 01:00:00 81 /min [facility] Respiratory rate 2023-07-28 01:00:00 16 /min [facility] Oxygen saturation in Arterial blood by Pulse oximetry 2023-07-28 01:00:00 95 /min [facility] Body temperature 2023-07-27 22:25:00 36.67 Shivani [facility] Body height 2023-07-27 22:25:00 172.7 cm [facility] Body weight 2023-07-27 22:25:00 70.308 kg [facility] BMI 2023-07-27 22:25:00 23.57 kg/m2 [facility] Respiratory rate 2022-03-25 01:46:00 20 /min [facility] Oxygen saturation in Arterial blood by Pulse oximetry 2022-03-25 01:46:00 96 /min [facility] Systolic blood pressure 2022-03-25 01:46:00 110 mm[Hg] [facility] Diastolic blood pressure 2022-03-25 01:46:00 69 mm[Hg] [facility] Heart rate 2022-03-25 01:46:00 67 /min [facility] Body temperature 2022-03-25 01:46:00 37.28 Shivani [facility] Body height 2022-03-24 21:08:00 172.7 cm [facility] Body weight 2022-03-24 21:08:00 81.647 kg [facility] BMI 2022-03-24 21:08:00 27.37 kg/m2 [facility] Procedures Procedure Date / Time Performed Performing Clinicia n Source LACTIC ACID WHOLE BLOOD 2023-07-27 23:30:00 Josse Wyman [facility] COMP. METABOLIC PANEL ([id number]) 2023-07-27 23:29:00 Josse Wyman [facility] CBC WITH DIFF 2023-07-27 23:29:00 [facility] CONSENT/REFUSAL FOR DIAGNOSIS AND TREATMENT 2023-07-27 22:02:23 Doctor Unassigned, [place] [facility] CT ABDOMEN PELVIS W CONTRAST 2022-03-24 23:24:00 Jesus Dee [facility] URINALYSIS 2022-03-24 22:46:00 Jesus Dee [facility] LIPASE 2022-03-24 22:11:00 Jesus Dee [facility] MAGNESIUM 2022-03-24 22:11:00 Jesus Dee [facility] TROPONIN I 2022-03-24 22:11:00 Jesus Dee [facility] COMP. METABOLIC PANEL ([id number]) 2022-03-24 22:11:00 Jesus Dee [facility] CBC WITH DIFF 2022-03-24 22:11:00 Jesus Dee [facility] ASSIGNMENT OF BENEFITS 2022-03-24 21:55:11 Docto r Unassigned, [place] [facility] NOTICE OF PRIVACY PRACTICES 2022-03-24 20:57:45 Doctor Unassigned, [place] [facility] CONSENT/REFUSAL FOR DIAGNOSIS AND TREATMENT 2022-03-24 20:57:17 Doctor Unassigned, [place] [facility] Encounters Start Date/Time End Date/Time Encounter Type Admission Type Attending [facility] Care Department Encounter ID Source 2024-12-29 15:22:12 2024-12-29 15:22:12 Outpatient [facility] [place] [id number] [facility] 2024-11-30 08:30:35 2024-11-30 08:30:35 [place]patient [facility] [place] [id number] [facility] 2024-11-17 15:50:19 2024-11-17 15:50:19 Outpatient [facility] [place] [id number] [facility] 2024-11-09 10:01:31 2024-11-09 10:01:31 Outpatient [facility] [place] [id number] [facility] 2024-10-27 08:39:24 2024-10-27 08:39:24 Outpatient [facility] [place] [id number] [facility] 2024-04-21 16:11:02 2024-04-21 16:11:02 Outpatient [facility] [place] [id number] [facility] 2023-07-27 17:28:00 2023-07-27 20:22:00 Emergency JOHNATHAN JAY KYENRRIQUE ERT [id number] [facility] 2023-07-27 17:28:00 2023-07-27 20:22:00 Emergency Josse Wyman Phillip [facility] [id number] [id number] [id number] [id number] [facility] 2023-07-20 14:55:54 2023-07-20 14:55:54 Outpatient [facility] [id number] [facility] Pang 2022-03-24 16:10:00 2022-03-24 22:02:00 Emergency X Jesus DEE RUST ERT [id number] [facility] 2022-03-24 16:10:00 2022-03-24 22:02:00 Emergency Jesus Dee [facility] [id number] 350.1.13.10 4.2.7.2.686 [id number] [facility] 2022-03-24 00:00:00 2022-03-24 00:00:00 Orders Only Doctor Unassigned, [place] [facility] [id number] [id number] [id number] [id number] [facility] 2021-02-18 13:21:00 2021-02-18 16:27:00 Emergency Nadeem [facility] [id number] 350.1.13.10 4.2.7.2.686 [id number] 2021-02-18 13:15:00 2021-02-18 13:15:00 Emergency X RUST ERT [id number] [facility] 2021-02-16 21:09:00 2021-02-17 00:08:00 Emergency Johnathan Resendez [facility] [id number] [id number] [id number] [id number] 2021-02-16 21:03:00 2021-02-16 21:03:00 Emergency X RUST ERT [id number] [facility] Results Test Description Test Time Test Comments Results Result Co mments Source [facility] WITH [id number] 00:06:53* Test Item Value Reference Range Interpretation [...] 34.4 g/dL 31.2-35.0 RDW-SD (test code = 49428-5) 40.4 fL 38.5-51.6 RDW-CV (test code = 788-0) 12.2 % 12.1-15.4 PLT (test code = 777-3) 215 See_Comment [Automated message] The system which generated this result transmitted reference range: 150 - 328 10*3/?L. The reference range was not used to interpret this result as normal/abnormal. MPV (test code = 71532-5) 12.0 fL 9.8-13.0 NRBC/100 WBC (test code = 9131328573) 0.0 See_Comment [Automated message] The system which generated this result transmitted reference range: 0.0 - 10.0 /100 WBCs. The reference range was not used to interpret this result as normal/abnormal. NRBC x10^3 (test code = 2315772236) See_Comment [Automated message] The system which generated this result transmitted reference range: 10*3/?L. The reference range was not used to interpret this result as normal/abnormal. GRAN MAT (NEUT) % (test code = 770-8) 81.3 % IMM GRAN % (test code = 5920616958) 0.40 % LYMPH % (test code = 736-9) 10.7 % MONO % (test code = 5905-5) 7.0 % EOS % (test code = 713-8) 0.2 % BASO % (test code = 706-2) 0.4 % GRAN MAT x10^3(ANC) (test code = 0540738722) 13.80 10*3/uL 1.99-6.95 H IMM GRAN x10^3 (test code = 0843713505) 0.07 10*3/uL 0.00-0.06 H LYMPH x10^3 (test code = 731-0) 1.81 10*3/uL 1.09-3.23 MONO x10^3 (test code = 742-7) 1.18 10*3/uL 0.36-1.02 H EOS x10^3 (test code = 711-2) 0.04 10*3/uL 0.06-0.53 L BASO x10^3 (test code = 704-7) 0.07 10*3/uL 0.01-0.09 Lab Interpretation (test code = 93928-5) Abnormal [facility] Whole [id number] 23:36:46* Test Item Value Reference Range Interpretation Comme nts LACTIC ACID (test code = 7037784622) 1.18 mmol/L 0.50-2.20 Lab Interpretation (test cod e = 21399-9) Normal [facility] [id number] 22:56:15* Test Item Value Reference Range Interpretation Comments TROPONIN I (test code = 5729864168) <0.012 See_Comment [Automated message] The system which [...] of biotin. Lab Interpretation (test code = 99939-6) Normal [facility]2022-05-30 22:44:57* Test Item Value Reference Range Interpretation Comme nts MAGNESIUM (test code = 7237184989) 1.9 mg/dL 1.7-2.4 Lab Interpretation (test cod e = 02603-1) Normal [facility] MET[facility]OLIC PANEL (10230)2022-03-24 22:44:37* Test Item Value Reference Range Interpretation Comme nts NA (test code = 4293333034) 142 mmol/L 135-145 K (test code = 0698416596) 4.6 mmol/L 3.5-5.0 CL (test code = 0654720896) 104 mmol/L 98-108 CO2 TOTAL (test code = 4516870812) 24 mmol/L 23-31 AGAP (test code = 0423376629) 2-16 BUN (test code = 3172223627) 13 mg/dL 7-23 GLUCOSE (test code = 9891004034) 130 mg/dL 70-110 H CREATININE (test code = 9963063570) 0.93 mg/dL 0.60-1.25 TOTAL BILI (test code = 3788336758) 0.5 mg/dL 0.1-1.1 CALCIUM (test code = 9072380862) 9.6 mg/dL 8.6-10.6 T PROTEIN (test code = 1724688361) 7.6 g/dL 6.3-8.2 ALBUMIN (test code = 0017595154) 4.8 g/dL 3.5-5.0 ALK PHOS (test code = 8945929638) 63 U/L 34-122 ALTv (test code = 1742-6) 16 U/L 5-50 AST(SGOT) (test code = 3350539808) 21 U/L 13-40 eGFR (test code = 0368127489) mL/min/1.73m2 KALI (test code = KALI) Association [...] imaging tests). Lab Interpretation (test code = 84342-7) Abnormal [facility]30 22:44:37* Test Item Value Reference Range Interpretation Comme nts LIPASE (test code = 0648366322) 138 U/L 0-220 Lab Interpretation (test cod e = 61121-1) Normal [facility] [id number] 22:30:54* Test Item Value Reference Range Interpretation [...] 33.5 g/dL 31.2-35.0 RDW-SD (test code = 28342-6) 39.8 fL 38.5-51.6 RDW-CV (test code = 788-0) 12.1 % 12.1-15.4 PLT (test code = 777-3) See_Comment [Automated message] The system which generated this result transmitted reference range: 150 - 328 10*3/?L. The reference range was not used to interpret this result as normal/abnormal. MPV (test code = 06254-3) 12.0 fL 9.8-13.0 NRBC/100 WBC (test code = 3459882537) See_Comment [Automated message] The system which generated this result transmitted reference range: 0.0 - 10.0 /100 WBCs. The reference range was not used to interpret this result as normal/abnormal. NRBC x10^3 (test code = 7874015245) <0.01 See_Comment [Automated message] The system which generated this result transmitted reference range: 10*3/?L. The reference range was not used to interpret this result as normal/abnormal. GRAN MAT (NEUT) % (test code = 770-8) 86.7 % IMM GRAN % (test code = 4583511736) 0.40 % LYMPH % (test code = 736-9) 8.7 % MONO % (test code = 5905-5) 3.8 % EOS % (test code = 713-8) 0.1 % BASO % (test code = 706-2) 0.3 % GRAN MAT x10^3(ANC) (test code = 1113056361) 11.82 10*3/uL 1.99-6.95 H IMM GRAN x10^3 (test code = 3284060078) 0.05 10*3/uL 0.00-0.06 LYMPH x10^3 (test code = 731-0) 1.18 10*3/uL 1.09-3.23 MONO x10^3 (test code = 742-7) 0.52 10*3/uL 0.36-1.02 EOS x10^3 (test code = 711-2) <0.03 0.06-0.53 L BASO x10^3 (test code = 704-7) 0.04 10*3/uL 0.01-0.09 Lab Interpretation (test code = 27405-1) Abnormal [facility]"
[2025-01-21 16:52] LABS: Absolute Lymphocytes (CBC) 1.4 K/uL (0.7-4.9); Absolute Monocytes 0.8 K/uL (0.1-1.3); Absolute Neutrophil 12.3 K/uL (1.8-8.0); Basophils % 0.3 % (0-1.3); Eosinophils % 0.3 % (0-4.4); Hematocrit 43.9 % (39.6-49.0); Hemoglobin 14.9 g/dL (13.6-17.9); Lymphocytes % 9.3 % (15.3-44.8); MCH 30.7 pg (27.0-35.0); MCHC 33.9 g/dL (32.0-36.0); MCV 90.4 fL (80-100); Monocytes % 5.2 % (3.3-12.3); Neutrophils % 84.9 % (41.7-73.7); Platelets 204 thou/uL (152-406); RBC Red Blood Cell Count 4.85 M/uL (4.33-5.43); Red Cell Distribution Width 12.9 % (12.1-15.2)
[2025-01-21] MEDS ORDERED: PROMETHAZINE INJ 25 MG/ML AMP ONE (17:01)
[2025-01-21] MEDS ORDERED: MORPHINE 4 MG/ML SYR ONE ×2 (17:02→22:18)
[2025-01-21] MEDS ORDERED: NA CHLORIDE 0.9% 2,000 ML ONE (17:03)
[2025-01-21] MEDS ORDERED: CIPROFLOXACIN 400mg IV 400 MG/200 ML BAG IV ONE (17:03)
[2025-01-21] MEDS ORDERED: METRONIDAZOLE 500mg IVPB 500 MG/100 ML BAG IV ONE (17:03)
[2025-01-21] MEDS ORDERED: NA CHLORIDE 0.9% 50 ML ONE (17:03)
[2025-01-21 17:09] LABS: Albumin 3.6 g/dL (3.4-5.0); Anion Gap 9.7 mEq/L (5.0-15.0); Bilirubin Total 0.7 mg/dL (0.2-1.0); Globulin 3.5 g/dL (2.3-3.5); Potassium 3.7 mEq/L (3.5-5.1); Protein, Total 7.1 g/dL (6.4-8.2)
--- NOTE | 2025-01-21 20:24 | RAD REPORT ---
EXAMINATION: CT Abdomen Pelvis W Contrast CLINICAL INDICATION: Male, 54 years old. ABD PAIN TECHNIQUE: CT abdomen and pelvis was performed, after the administration of IV contrast, [facility]. Axial, sagittal and coronal reconstructions were obtained. One or more of the following dose reduction techniques were used: Automated exposure control, adjustment of the mA and k V according to patient size, and iterative reconstruction. Unless otherwise specified, incidental findings do not require dedicated imaging follow-up. COMPARISON: 01/18/2025 FINDINGS: LOWER CHEST: The visualized lung bases are clear. LIVER: Normal in size and contour. No focal lesion. BILIARY SYSTEM: Status post cholecystectomy. SPLEEN: Normal size. No focal lesion. PANCREAS: No mass, ductal dilation, or shanta-pancreatic fluid. ADRENALS: Stable left adrenal 1.4 cm nodule KIDNEYS: Normal size and contour. No hydronephrosis. URINARY BLADDER: Unremarkable. GASTROINTESTINAL TRACT: Segmental proximal to mid sigmoid colon wall thickening again seen, with prog ressive wall edema and interval development of intramural collections along the sigmoid wall. The largest is present in appearance present along the right wall measuring 3.1 x 2.4 x 1.7 cm, with a sm aller collection along the left inferior wall measuring 2.1 x 1.9 x 1.4 cm. No evidence of free air, significant intra-abdominal free fluid, or bowel obstruction. Engorged vasa recta in the right lower quadrant. Fluid opacification of mid to distal small bowel. These are nonspecific findings. APPENDIX: Normal appendix. LYMPH NODES: Mildly prominent retroperitoneal lymph nodes, stable, not exceeding 1 cm, likely reactiv e. MUSCULOSKELETAL: No acute or suspicious osseous abnormality. ADDITIONAL FINDINGS: None. IMPRESSION: Progressive wall thickening along the segment of sigmoid colon involved with acute, possibly multifoc al, diverticulitis. Interval development of 2 intramural collection/small abscesses as detailed above. New fluid opacification of the mid to distal small bowel, with engorgement of the vasa recta in the r ight lower quadrant. Although nonspecific, the findings could suggest enteritis. Inflammatory bowel disease could be an alternative etiology that would explain both pathologies. Other stable incidental findings as above.
--- NOTE | 2025-01-21 20:47 | EDPHYS ---
Physician Documentation [facility] Name: Bernard Irving Age: 54 yrs Sex: Male : 1970 Arrival Date: 01/21/2025 Time: 15:37 Bed 19 Private MD: ED Physician Van Spear HPI: 01/21 17:26 This 54 yrs old Male presents to ER via Ambulatory with complaints of dr5 Abdominal Pain, Vomiting. 17:26 The patient presents with abdominal pain in the left lower quadrant. Onset: The dr5 symptoms/episode began/occurred 3 day(s) ago. Patient is a 54-year-old male with history of GERD and diverticulitis coming in with nausea and vomiting and p.o. intolerance since he was discharged home Thursday. Patient reports that on Thursday he was diagnosed with diverticulitis and was sent home with Augmentin and is unable to keep it down due to vomiting. Patient reports he is vomiting approximately 30 times a day and the pain has not improved. Pt denies fever.. Historical: - Allergies: 16:01 No Known Allergies; cm10 - PMHx: 16:01 acid reflux; Diverticulitis; cm10 - PSHx: 16:01 Cholecystectomy; cm10 - Immunization history:: Adult Immunizations up to date. - Infectious Disease History:: Denies. - Social history:: Smoking status: Patient denies any tobacco usage or history of. ROS: 17:26 Constitutional: as per hpi dr5 Exam: 17:26 Constitutional: This is a well developed, well nourished patient who is awake, alert, dr5 and in no acute distress. Head/Face: Normocephalic, atraumatic. Eyes: Pupils equal round and reactive to light, extra-ocular motions intact. Lids and lashes normal. Conjunctiva and sclera are non-icteric and not injected. Cornea within normal limits. Periorbital areas with no swelling, redness, or edema. Neck: Trachea midline, no thyromegaly or masses palpated, and no cervical lymphadenopathy. Supple, full range of motion without nuchal rigidity, or vertebral point tenderness. No Meningismus. Chest/axilla: Normal chest wall appearance and motion. Nontender with no deformity. No lesions are appreciated. Cardiovascular: Regular rate and rhythm with a normal S1 and S2. Normal PMI, no JVD. No pulse deficits. Respiratory: Lungs have equal breath sounds bilaterally, clear to auscultation. No rales, rhonchi or wheezes noted. No increased work of breathing, no retractions or nasal flaring. 17:26 Abdomen/GI: Inspection: abdomen appears normal, Bowel sounds: normal, Palpation: moderate abdominal tenderness, in the left lower quadrant, Vital Signs: 16:00 BP 131 / 76; Pulse 94; Resp 18; Temp 98.4(O); Pulse Ox 99% on R/A; Weight 77.11 kg; cm10 Height 5 ft. 8 in. ; Pain 10/10; 17:40 BP 102 / 61; Pulse 76; Resp 16; Pulse Ox 98% ; Pain 4/10; db 16:00 Body Mass Index 25.85 (77.11 kg, 172.72 cm) cm10 16:00 Pain Scale: Adult cm10 17:40 Pain Scale: Adult db MDM: 15:58 Medical Screening Exam initiated dr5 18:07 Differential diagnosis: diverticulitis, gastroesophageal reflux disease, pancreatitis. dr5 Data reviewed: vital signs, nurses notes, lab test result(s). I considered the following discharge prescriptions or medication management in the emergency department Medications were administered in the Emergency Department. See MAR. Care significantly affected by the following chronic conditions: Diverticulitis. Care significantly affected by the following Social Determinants of Health: Poor access to healthcare and/or lack of insurance, Poor access to transportation, Problems related to employment. ED course: Will give patient 1 dose of Cipro and Flagyl IV in ER. Pain medication and antinausea medication as well as IV fluids given. Will reassess patient after completion of fluids and antibiotics to determine whether patient can go home or admitted for p.o. intolerance. If patient goes home patient is requesting to have medication as liquid.. 21:05 Management of patient was discussed with the following: Thermoscrew Operator: DR Hays, general cp surgery, will consult and wants Zosyn antibiotic administered and patient admitted to hospitalist service with accepting physician DR Reyna. 01/21 16:31 Order name: CBC with Diff; Complete Time: 16:54 01/21 16:31 Order name: CMP; Complete Time: 17:10 01/21 16:31 Order name: Lipase; Complete Time: 17:10 01/21 20:48 Order name: Lactate w/ 2H reflex if indic. cp 01/21 20:48 Order name: Blood Culture Adult (2) cp 01/21 22:04 Order name: Urinalysis w/ reflexes EDMS 01/21 22:04 Order name: CBC with Automated Diff EDMS 01/21 22:04 Order name: CBC with Automated Diff EDMS 01/21 22:04 Order name: Comprehensive Metabolic Panel EDMS 01/21 22:04 Order name: Comprehensive Metabolic Panel EDMS 01/22 06:59 Order name: Urinalysis w/ reflexes EDMS 01/21 18:58 Order name: CT Abd/Pelvis - IV Contrast Only; Complete Time: 20:28 cp 01/21 20:34 Interpretation: Report reviewed. 01/21 16:31 Order name: IV Saline Lock; Complete Time: 16:48 dr5 01/21 16:31 Order name: Labs collected and sent; Complete Time: 16:48 dr5 Administered Medications: 17:00 Drug: NS 0.9% IV 2000 ml IV at 1 bolus Per protocol; to be given as a bolus over 60 db minutes Route: IV; Rate: 1 bolus; Site: right antecubital; 19:00 Follow up: IV Status: Completed infusion; IV Intake: 1000ml rg5 17:05 Drug: morphine IVP or IV 4 mg IVP once over 4 mins Route: IVP; Infused Over: 4 mins; db Site: right antecubital; 19:00 Follow up: Response: No adverse reaction; Pain is decreased rg5 17:05 Drug: Promethazine IVP 25 mg IVP once Route: IVP; Site: right antecubital; db 19:00 Follow up: Response: No adverse reaction rg5 17:10 Drug: metroNIDAZOLE IVPB 500 mg 100 ml IVPB once over 30 mins Volume: 100 ml; Route: db IVPB; Infused Over: 30 mins; Site: right antecubital; 19:00 Follow up: IV Status: Completed infusion rg5 17:45 Drug: Ciprofloxacin IVPB 400 mg 200 ml IVPB once over 60 mins Volume: 200 ml; Route: db IVPB; Infused Over: 60 mins; Site: right antecubital; 19:00 Follow up: IV Status: Completed infusion rg5 21:30 Drug: Piperacillin-Tazobactam IVPB 3.375 grams IVPB once over 60 mins; (mix in NS 100 rg5 mL) Route: IVPB; Infused Over: 60 mins; Site: right antecubital; 23:00 Follow up: IV Status: Completed infusion; IV Intake: 100ml rg5 21:30 Drug: NS 0.9% IV 1000 ml IV at 1000 ml once; to be given as a bolus over 60 minutes rg5 Route: IV; Rate: 1000 ml; Site: right antecubital; 01/22 02:34 Follow up: IV Status: Completed infusion; IV Intake: 1000ml rg5 Disposition Summary: 01/21/25 20:47 Hospitalization Ordered Notes: Hospitalization Status: Inpatient Admission cp Condition: Stable cp Problem: new cp Symptoms: have improved cp Bed/Room Type: Standard cp Provider: Elizabeth Reyna(01/21/25 21:04) cp Location: Telemetry/MedSurg (Inpatient)(01/22/25 09:33) kb3 Room Assignment: [facility](01/22/25 09:33) kb3 Diagnosis - Diverticulitis of intestine, part unspecified, with perforation and abscess cp Discharge Instructions: - Discharge Summary Sheet dr5 Forms: - Medication Reconciliation Form cp - SBAR form cp - Leadership Thank You Letter cp Prescriptions: - metronidazole 500 mg/5 mL Oral suspension - take 5 milliliter ORAL route every 8 hours for 10 days; 150 milliliter; dr5 Refills: 0, Product Selection Permitted - Cipro 500 mg/5 mL Oral Suspension - take 5 milliliters ORAL route every 12 hours for 10 days; 120 milliliter; dr5 Refills: 0, Product Selection Permitted - promethazine 25 mg Oral Tablet - take 1 tablet ORAL route every 6 hours As needed; 20 tablet; Refills: 0, dr5 Product Selection Permitted Signatures: Dispatcher [employer] EDLuis Doan PA PA cp Rosaura Eddy RN RN kb3 Maria D Hart RN RN db Sophie Sandhu RN RN [email or web address] Brianna Mora Rommel, RN RN rg5 Jhonathan Tamayo FNP-C FNP-5 Corrections: (The following items were deleted from the chart) 01/21 21:04 20:47 Clement Figueroa cp cp 22:20 20:47 Telemetry/MedSurg (Inpatient) cp vk 22:20 20:47 cp vk 22:20 22:20 vk vk 01/22 22:20 [facility] ER HOLD vk kb3 01/22 22:20 ERHOLD- vk kb3
--- NOTE | 2025-01-21 20:47 | ER ---
Nurse's Notes [facility] Name: Bernard Irving Age: 54 yrs Sex: Male : 1970 Arrival Date: 01/21/2025 Time: 15:37 Bed 19 Private MD: Diagnosis: Diverticulitis of intestine, part unspecified, with perforation and abscess Presentation: 01/21 16:00 Chief complaint: Patient states: DIAGNOSED WITH DIVERTICULITIS ON THURSDAY AND PAIN IS cm10 NOT GETTING BETTER. PT ALSO REPORTS NOT ABLE TO KEEP ANYTHING DOWN. Coronavirus screen: Client denies travel out of the [place] in the last 14 days. Ebola Screen: Patient denies travel to an Ebola-affected area in the 21 days before illness onset. Initial Sepsis Screen: Does the patient meet any 2 criteria? HR > 90 bpm. No. Patient's initial sepsis screen is negative. Does the patient have a suspected source of infection? No. Patient's initial sepsis screen is negative. Risk Assessment: Do you want to hurt yourself or someone else? Patient reports no desire to harm self or others. Onset of symptoms was January 21, 2025. 16:00 Method Of Arrival: Ambulatory cm10 16:00 Acuity: ASH 3 cm10 Triage Assessment: 16:02 General: Appears uncomfortable, Behavior is cooperative. Neuro: No deficits noted. cm10 Level of Consciousness is awake, alert, obeys commands, Oriented to person, place, time, situation, Appropriate for age. Respiratory: No deficits noted. Airway is patent Respiratory effort is even, unlabored, Respiratory pattern is regular, symmetrical. Historical: - Allergies: 16:01 No Known Allergies; cm10 - PMHx: 16:01 acid reflux; Diverticulitis; cm10 - PSHx: 16:01 Cholecystectomy; cm10 - Immunization history:: Adult Immunizations up to date. - Infectious Disease History:: Denies. - Social history:: Smoking status: Patient denies any tobacco usage or history of. Screenin:30 [facility] ED Fall Risk Assessment (Adult) History of falling in the last 3 months, db including since admission No falls in past 3 months (0 pts) Confusion or Disorientation No (0 pts) Intoxicated or Sedated No (0 pts) Impaired Gait No (0 pts) Mobility Assist Device Used No (0 pt) Altered Elimination No (0 pt) Score/Fall Risk Level 0 - 2 = Low Risk Oriented to surroundings, Maintained a safe environment. Abuse screen: Denies threats or abuse. Denies injuries from another. Nutritional screening: No deficits noted. Tuberculosis screening: No symptoms or risk factors identified. Assessment: 16:09 Reassessment: Patient appears in no apparent distress at this time. Patient and/or db family updated on plan of care and expected duration. Pain level reassessed. Patient is alert, oriented x 3, equal unlabored respirations, skin warm/dry/pink. General: Appears in no apparent distress. comfortable, Behavior is calm, agitated, anxious. Pain: Complains of pain in abdomen. Neuro: Level of Consciousness is awake, alert, obeys commands, Oriented to person, place, time, situation. Respiratory: Airway is patent Respiratory effort is even, unlabored, Respiratory pattern is regular, symmetrical. GI: Bowel sounds Abd is soft. GI: Reports lower abdominal pain, upper abdominal pain, nausea, vomiting. 18:14 Reassessment: Patient appears in no apparent distress at this time. Patient and/or db family updated on plan of care and expected duration. Pain level reassessed. Patient is alert, oriented x 3, equal unlabored respirations, skin warm/dry/pink. Patient states feeling better. Patient states symptoms have improved. Pain: Pain currently is 4 out of 10 on a pain scale. Vital Signs: 16:00 BP 131 / 76; Pulse 94; Resp 18; Temp 98.4(O); Pulse Ox 99% on R/A; Weight 77.11 kg; cm10 Height 5 ft. 8 in. ; Pain 10/10; 17:40 BP 102 / 61; Pulse 76; Resp 16; Pulse Ox 98% ; Pain 4/10; db 16:00 Body Mass Index 25.85 (77.11 kg, 172.72 cm) cm10 16:00 Pain Scale: Adult cm10 17:40 Pain Scale: Adult db ED Course: 15:38 Patient arrived in ED. mr 15:57 Jhonathan Tamayo, [facility] 15:57 Van Spear MD is Attending Physician. dr5 16:01 Triage completed. cm10 16:02 Arm band placed on right wrist. Patient placed in an exam room, on a stretcher. cm10 16:08 Maria D Hart ALISHA is Primary Nurse. db 16:48 CBC with Diff Sent. em1 16:48 CMP Sent. em1 16:49 Lipase Sent. em1 16:49 Initial lab(s) drawn, by me, sent to lab. Inserted saline lock: 20 gauge in right em1 antecubital area, using aseptic technique. Blood collected. Flushed with 10 mL NS. 18:14 Patient has correct armband on for positive identification. Bed in low position. Call db light in reach. Side rails up X2. Pulse ox on. NIBP on. Warm blanket given. Pillow given. 18:18 PHCP role handed off by Jhonathan Tamayo FNP-C cp 18:18 Luis Valdez PA is PHCP. cp 19:32 CT Abd/Pelvis - IV Contrast Only In Process Unspecified. EDMS 20:24 Atif Awad, ALISHA is Primary Nurse. rg5 20:47 Clement Figueroa MD is Hospitalizing Provider. cp 21:04 Elizabeth Reyna MD is Hospitalizing Provider. cp 01/22 00:00 No provider procedures requiring assistance completed. Patient admitted, IV remains in rg5 place. bleeding controlled, No redness/swelling at site. Pressure dressing applied. 02:30 Provided Education on: needs for admit. rg5 05:08 Missed attempt(s): 20 gauge in left forearm. Bleeding controlled, band aid applied, sa1 catheter tip intact. 05:11 Inserted saline lock: 20 gauge in left forearm, using aseptic technique. Blood sa1 collected. Flushed with 10 mL NS. 06:39 Urinalysis w/ reflexes Sent. rg5 Administered Medications: 01/21 17:00 Drug: NS 0.9% IV 2000 ml IV at 1 bolus Per protocol; to be given as a bolus over 60 db minutes Route: IV; Rate: 1 bolus; Site: right antecubital; 19:00 Follow up: IV Status: Completed infusion; IV Intake: 1000ml rg5 17:05 Drug: morphine IVP or IV 4 mg IVP once over 4 mins Route: IVP; Infused Over: 4 mins; db Site: right antecubital; 19:00 Follow up: Response: No adverse reaction; Pain is decreased rg5 17:05 Drug: Promethazine IVP 25 mg IVP once Route: IVP; Site: right antecubital; db 19:00 Follow up: Response: No adverse reaction rg5 17:10 Drug: metroNIDAZOLE IVPB 500 mg 100 ml IVPB once over 30 mins Volume: 100 ml; Route: db IVPB; Infused Over: 30 mins; Site: right antecubital; 19:00 Follow up: IV Status: Completed infusion rg5 17:45 Drug: Ciprofloxacin IVPB 400 mg 200 ml IVPB once over 60 mins Volume: 200 ml; Route: db IVPB; Infused Over: 60 mins; Site: right antecubital; 19:00 Follow up: IV Status: Completed infusion rg5 21:30 Drug: Piperacillin-Tazobactam IVPB 3.375 grams IVPB once over 60 mins; (mix in NS 100 rg5 mL) Route: IVPB; Infused Over: 60 mins; Site: right antecubital; 23:00 Follow up: IV Status: Completed infusion; IV Intake: 100ml rg5 21:30 Drug: NS 0.9% IV 1000 ml IV at 1000 ml once; to be given as a bolus over 60 minutes rg5 Route: IV; Rate: 1000 ml; Site: right antecubital; 01/22 02:34 Follow up: IV Status: Completed infusion; IV Intake: 1000ml rg5 Medication: 01/21 19:00 VIS not applicable for this client. rg5 Intake: 19:00 IV: 1000ml; Total: 1000ml. rg5 23:00 IV: 100ml; Total: 1100ml. rg5 01/22 02:34 IV: 1000ml; Total: 2100ml. rg5 Output: 01/21 17:40 Urine: 300ml (Voided); Total: 300ml. db Outcome: 20:47 Decision to Hospitalize by Provider. cp 01/22 02:30 Admitted to ER Hold. Please see [facility] for further documentation. rg5 Condition: stable Instructed on the need for admit, 10:23 Patient left the ED. ld1 Signatures: Dispatcher [employer] EDMA PryorPriscilla, Dejuan Reg mr EdsonDeshawn em1 Luis Valdez PA PA cp Elva Howell RN RN ld1 Maria D Hart RN RN db Sophie Sandhu RN RN cm10 Atif Awad RN RN rg5 Sultan Sachi 1 Jhonathan Tamayo, WATER HYDRANT INSTALLER-C WATER HYDRANT INSTALLER-Cdr5
[2025-01-21] MEDS ORDERED: PIPERACIL/TAZO 3.375 GM VIAL IV ONE (21:37)
[2025-01-21] MEDS ORDERED: NA CHLORIDE 0.9% 1,000 ML ONE (21:37)
[2025-01-21] MEDS ORDERED: NA CHLORIDE 0.9% 100 ML ONE (21:37)
--- NOTE | 2025-01-21 21:59 | P.HP ---
Certification for Inpatient Patient admitted to: Inpatient With expected LOS: >2 Midnights Practitioner: I am a practitioner with admitting privileges, knowledge of patient current condition, hospital course, and medical plan of care. Services: Services provided to patient in accordance with Admission requirements found in Title 42 Section 412.3 of the Code of Federal Regulations Patient History Date of Service: 01/21/25 Reason for admission: diverticulitis History of Present Illness: 54-year-old male with history of diverticulitis, cholecystectomy presents to the ER with complaints of abdominal pain and vomiting. He was seen in the ER 3 days ago. At that time he was diagnosed with diverticulitis and was given Augmentin. Subsequently reports having increased abdominal pain nausea and vomiting. States he mostly dry heaves but did have some nonbloody content. Reports history of diverticulitis for the last 20 years with multiple episodes. In the ER he had a CT scan which was abnormal General Surgery was contacted recommended admission and IV antibiotics. Allergies No Known Allergies Allergy (Unverified 02/17/23 19:56) Home Medications: Ciprofloxacin HCl 500 mg PO BID 7 Days #14 tab 02/19/23 Hydrocodone 5/APAP 325 [Bodfish 5/325] 1 tab PO Q8H PRN #10 tab 02/19/23 metroNIDAZOLE [Flagyl] 500 mg PO Q8H 7 Days #21 tab 02/19/23 ondansetron HCL [Ondansetron HCl] 4 mg PO Q8H PRN #10 tab 02/19/23 - Past Medical/Surgical History Diabetic: No -: Diverticulitis -: GERD. - Social History Alcohol use: No CD- Drugs: No Caffeine use: No Review of Systems 10-point ROS is otherwise unremarkable Gastrointestinal: Nausea, Vomiting, Abdominal Pain Physical Examination - Physical Exam General: Mild distress HEENT: Atraumatic, Normocephalic Respiratory: Clear to auscultation bilaterally, Normal air movement Cardiovascular: Regular rate/rhythm, Normal S1 S2 Gastrointestinal: Non-distended, Tenderness Musculoskeletal: No clubbing, No swelling Integumentary: No rashes, No breakdown - Studies Laboratory Data (last 24 hrs) 01/21/25 01/21/25 16:45 16:45 WBC 14.50 H Hgb 14.9 Hct 43.9 Plt Count 204 Sodium 135 L Potassium 3.7 BUN 11 Creatinine 1.00 Glucose 108 H Total Bilirubin 0.7 AST 11 L ALT 21 Alkaline Phosphatase 74 Lipase 179 H Assessment and Plan - Problems (Diagnosis) (1) Diverticulitis Current Visit: Yes Status: Acute (2) Nausea & vomiting Current Visit: Yes Status: Acute (3) Elevated lipase Current Visit: Yes Status: Acute - Plan 54-year-old man presents with abdominal pain nausea vomiting Diverticulitis with concern for abscess Abdominal pain Nausea vomiting Elevated lipase Plan: Admit patient to medical floor Will keep n.p.o. for now IV fluids IV zosyn As needed morphine Repeat lipase in a.m., he describes that he does not drink alcohol or smoke Surgical consultation called in the ER SCDs full code - Advance Directives Does patient have a Living Will: No Does patient have a Durable POA for Healthcare: No
[2025-01-21] MEDS: NA CHLORIDE 0.9% 1,000 ML IV SCH (22:00)
[2025-01-21] MEDS ORDERED: ONDANSETRON 4 MG/2 ML VIAL ONE (22:18)
[2025-01-21] MEDS: MORPHINE 2 MG/ML SYR IV PRN (22:22)
[2025-01-21] MEDS: ONDANSETRON 4 MG/2 ML VIAL IV PRN (22:22)
[2025-01-22] MEDS: PIPER TAZO 3.375 GM in NA CHLORIDE 0.9% 100 ML IV SCH (01:00)
[2025-01-22] MEDS ORDERED: NA CHLORIDE 0.9% 1,000 ML ONE (05:02)
[2025-01-22] MEDS ORDERED: ONDANSETRON 4 MG/2 ML VIAL ONE (05:12)
[2025-01-22] MEDS ORDERED: MORPHINE 2 MG/ML SYR ONE (05:12)
[2025-01-22 05:21] LABS: Absolute Eosinophils 0.1 K/uL (0-0.5); Absolute Lymphocytes (CBC) 1.5 K/uL (0.7-4.9); Absolute Monocytes 0.9 K/uL (0.1-1.3); Absolute Neutrophil 10.7 K/uL (1.8-8.0); Basophils % 0.3 % (0-1.3); Eosinophils % 0.5 % (0-4.4); Hematocrit 40.3 % (39.6-49.0); Hemoglobin 13.9 g/dL (13.6-17.9); Lymphocytes % 11.4 % (15.3-44.8); MCH 31.1 pg (27.0-35.0); MCHC 34.4 g/dL (32.0-36.0); MCV 90.2 fL (80-100); MPV 10.2 fL (7.6-11.3); Neutrophils % 80.8 % (41.7-73.7); Nucleated Red Blood Cells % 0.1 % (0-0); Platelets 171 thou/uL (152-406); RBC Red Blood Cell Count 4.47 M/uL (4.33-5.43); Red Cell Distribution Width 12.5 % (12.1-15.2)
[2025-01-22 05:38] LABS: ALT/SGPT 17 U/L (16-61); Albumin/Globulin Ratio 0.9 (1.1-1.8); Alkaline Phosphatase 67 U/L (45-117); Anion Gap 11.8 mEq/L (5.0-15.0); BUN Blood Urea Nitrogen 10 mg/dL (7-18); Bicarbonate 25 mEq/L (21-32); Bilirubin Total 0.9 mg/dL (0.2-1.0); Globulin 3.3 g/dL (2.3-3.5); Glomerular Filtration Rate 104 ml/min (=/>90); Glucose Level 108 mg/dL (74-106); Potassium 3.8 mEq/L (3.5-5.1); Protein, Total 6.3 g/dL (6.4-8.2); Sodium Level 140 mEq/L (136-145)
[2025-01-22 05:40] LABS: AST/SGOT < 10 U/L (15-37)
[2025-01-22 06:59] LABS: Specific Gravity 1.029 (1.005-1.030); Urine Bilirubin NEGATIVE (Negative); Urine Blood Negative (Negative); Urine Clarity Clear (Clear); Urine Color Light-Yellow (Yellow); Urine Glucose NEGATIVE (Negative); Urine Ketones 1+ (Negative); Urine Microscopic Reflex YN NO UMIC; Urine Nitrite NEGATIVE (Negative); Urine Protein NEGATIVE (Negative); Urine Urobilinogen Normal (Normal)
[2025-01-22] MEDS: HYDROMORPHONE HCL 2 MG/ML inj IV PRN (10:00)
[2025-01-22] MEDS ORDERED: NA CHLORIDE 0.9% 100 ML ONE (10:05)
[2025-01-22] MEDS ORDERED: HYDROMORPHONE HCL 2 MG/ML inj ONE (10:05)
[2025-01-22] MEDS ORDERED: PIPERACIL/TAZO 3.375 GM VIAL IV ONE (10:05)
--- NOTE | 2025-01-22 13:12 | P.PN ---
Subjective Date of Service: 01/22/25 Chief Complaint: diverticulitis Subjective: No chest pain or shortness of breath. Complaining of nausea and left lower quadrant abdominal pain. No obvious bleeding. Looks comfortable in the bed. Objective: General appearance: Alert and comfortable CVS: Normal S1 and S2 Lungs: Clear to auscultation bilaterally Abdomen: Soft, bowel sounds present, tenderness present in the left lower quadrant Extremities: No lower extremity edema Physical Examination - Vital Signs Temperature: 98.4 F Blood Pressure: 138/66 Pulse: 72 Respirations: 20 Pulse Ox (%): 97 - Studies Laboratory Data (last 24 hrs) 01/21/25 01/21/25 16:45 16:45 WBC 14.50 H Hgb 14.9 Hct 43.9 Plt Count 204 Sodium 135 L Potassium 3.7 BUN 11 Creatinine 1.00 Glucose 108 H Total Bilirubin 0.7 AST 11 L ALT 21 Alkaline Phosphatase 74 Lipase 179 H Assessment And Plan - Plan 54-year-old man presents with abdominal pain nausea vomiting, found to have diverticulitis with abscess. 1. Diverticulitis with abscess: Keep n.p.o., continue IV fluids and IV antibiotics, discussed with the surgical team this morning, further evaluation and management as per surgical team. 2. Abdominal pain, Nausea and vomiting sec to above, as needed medications for now. Plan discussed with patient, nursing staff and surgical attending.
--- NOTE | 2025-01-22 16:27 | CON ---
Date of Consultation: 01/22/2025 Brief History Of Present Illness: The patient is a 54-year-old male with a history of multiple years of episodes of diverticulitis. However, he has only been admitted on one other occasion for an epis ode of acute nonperforated diverticulitis. He has progressive worsening of the abdominal pain which began in the left lower quadrant, similar to previous episodes, but on a much more significant and se renetta basis. As such, he came to the emergency room with the above-stated complaints. I know the pat ient from previous laparoscopic cholecystectomy several years ago, for which he had a laparoscopic ch olecystectomy for a significant bout of cholecystitis. However, he did very well after that procedur e and has no complaints related to that surgery. He now has noted that the left lower quadrant abdom inal pain has been significant, severe, and is only minimally improved with the pain medication curre ntly received. However, he has only received a small dose of morphine. Other than that, he has cont inued to have bowel function. He had a colonoscopy about a year ago, which he states was only showin g benign polyps and diverticulosis at that occasion. He continues to have trouble with bowel movemen ts and pain on a chronic basis. He has tried multiple medications, which he feels constipates him ev en worse, making his symptoms exacerbate. Past Medical History: Diverticulitis, GERD, cholecystitis. Past Surgical History: Includes a laparoscopic cholecystectomy and colonoscopy. Allergies: NO KNOWN DRUG ALLERGIES. Home Medications: None on a regular basis. However, he has taken Cipro and Flagyl on occasions for the episodes of diverticulitis by his report. He has taken kwxl-jlf-buthqte pain medications such as Pepto-Bismol and other medications which he states have not improved his symptoms. Social History: He denies smoking, alcohol, recreational drug use. Review of Systems: Ten-point review of systems other than HPI, denies. Physical Examination: General: At the time of my examination, he is awake, alert, and oriented. Psychiatric: He is appropriate and conversive. He is in mild discomfort at the time of my examinati on. HEENT: Otherwise, normocephalic. Sclerae are anicteric. Mucous membranes are moist. Oropharynx is clear. Neck: Supple without JVD. Chest: Has normal expansion and excursion. Cardiovascular: Regular rate and rhythm. Pulmonary: Clear to auscultation bilaterally. Abdomen: Soft with positive left lower quadrant tenderness to palpation. No rebound. No guarding. No focal peritonitis. He is nondistended. Well-healed surgical scars from previous surgery are not ed. Extremities: No clubbing, cyanosis, or edema. Skin: Warm and dry. Laboratory Data: Revealed a white blood cell count of 14.5, hemoglobin is 14.9, hematocrit 43.9, carlos telet count is 204. Sodium 135, potassium 3.7, chloride 103, carbon dioxide 26, BUN 11, creatinine i s 1.0, glucose is 108, lactic acid less than 0.8, total bilirubin 0.7, AST 11, ALT 21, alkaline phosp hatase is 74, lipase is 179. His UA is essentially negative. He had imaging performed, which includ ed a CT scan of the abdomen and pelvis which officially read as segmental proximal to mid sigmoid col on wall thickening again seen with progressive wall edema and interval development of intramural chucky ections along the sigmoid wall. The largest is present in appearance along the right wall measuring 3.1 x 2.4 x 1.7 with a smaller collection along the left inferior wall measuring 2.1 x 1.9 x 1.4. No evidence of free air. No significant intraabdominal free fluid or bowel obstruction. Engorged vasa recta of the right lower quadrant, fluid opacification of the mid to distal small bowel. These were nonspecific findings. Assessment And Plan: This is a 54-year-old male with a known history of sigmoid diverticulitis. He now comes in with an exacerbation complicated course of sigmoid diverticulitis with intramural absces ses. 1. IV fluid hydration. 2. Antibiotic coverage. 3. Serial abdominal exams. 4. NPO, at this point. 5. I will obtain records from his previous colonoscopy. 6. I have discussed risks, benefits, and alternatives of nonoperative management versus operative man agement. We will attempt nonoperative management, at this point, and plan for discussion of laparosc opic possible open sigmoid colectomy in the future to help alleviate his symptoms as he has been stru ggling with this for over 20 years and now has an episode of complicated diverticulitis for which he would like to have it resolved. I have explained the risks, benefits, and alternatives of the above stated plan. If he is unsuccessful in medical management, I explained that he would likely need expl oratory laparotomy, possible bowel resection, possible intestinal diversion, colostomy creation. I esthela little discussed the risks, benefits, and alternatives of this plan including, but not limited to, bleed ing, infection, damage to surrounding tissues, injury to intestines, injury to ureters, nerves contro lling pelvic dysfunction. The patient displayed understanding of above stated plan and agreed to pro ceed as indicated. Thank you for this interesting consult. DESTINY/DELROY Voice ID: [id number] Report ID: [id number]
[2025-01-22] MEDS: ENOXAPARIN 40 MG/0.4 ML SQ SCH (16:53)
[2025-01-23 02:40] VITALS: BMI 25.8
[2025-01-23] MEDS: PROMETHAZINE INJ 25 MG/ML AMP IV ONE (05:50)
[2025-01-23 07:02] LABS: Absolute Eosinophils 0.1 K/uL (0-0.5); Absolute Lymphocytes (CBC) 1.2 K/uL (0.7-4.9); Absolute Monocytes 0.6 K/uL (0.1-1.3); Absolute Neutrophil 9.1 K/uL (1.8-8.0); Basophils % 0.2 % (0-1.3); Eosinophils % 0.9 % (0-4.4); Hematocrit 40.6 % (39.6-49.0); Hemoglobin 13.7 g/dL (13.6-17.9); Lymphocytes % 11.1 % (15.3-44.8); MCH 30.8 pg (27.0-35.0); MCHC 33.8 g/dL (32.0-36.0); MCV 91.1 fL (80-100); MPV 10.5 fL (7.6-11.3); Monocytes % 5.2 % (3.3-12.3); Neutrophils % 82.6 % (41.7-73.7); Nucleated Red Blood Cells % 0.1 % (0-0); Platelets 176 thou/uL (152-406); RBC Red Blood Cell Count 4.45 M/uL (4.33-5.43); Red Cell Distribution Width 12.5 % (12.1-15.2)
[2025-01-23] MEDS: HYDROCODONE/APAP 5/325 MG TAB PO PRN (12:22)
--- NOTE | 2025-01-23 16:12 | CON ---
History Of Present Illness: This is a 54-year-old male coming in with diverticulitis and status post cholecystectomy, coming in with abdominal pain and vomiting to the emergency room. Three days prior to admission, he was diagnosed with diverticulitis and given Augmentin to go home with. The patient 's discomfort continued and he ended up coming to the hospital again last Thursday. He had multiple episodes of diverticulitis in the last [address] scan of abdomen and pelvis done on January 21 show ed that the patient has progressive wall thickening along the segment of sigmoid colon with acute pos sible multifocal diverticulitis, interval development up to intramural collection of small abscesses as detailed in the report. The patient is currently on IV Zosyn and tolerating antibiotic without an y problem. Past Medical History: As per HPI. Social History: Nonsmoker, nondrinker. Family History: Noncontributory. Medications: Zosyn. See MARs for other medications. Allergies: NO KNOWN DRUG ALLERGIES. Review of Systems: A 10-point review was performed. Physical Examination: General: This is a 54-year-old male, lying in bed, not in any acute cardiopulmonary distress. Vital Signs: Temperature 98, pulse 72, respirations 20, blood pressure 160/74. HEENT: Unremarkable. Neck: Supple. Lungs: Basal crackles. Heart S1, S2. Regular. Abdomen: Left lower quadrant discomfort, otherwise unremarkable. Extremities: No edema. Laboratory Data: WBC 11,000, down from 14.5; hemoglobin 13.7; platelets 176. Chemistry showed BUN o f 11, creatinine 0.8, albumin level of 3. Blood cultures are negative to date. Assessment And Plan: A 54-year-old male with significant past medical history of diverticulitis, com ing in with acute case of diverticulitis and possible abscess formation. Per surgical team, continue IV antibiotics and n.p.o. Continue current treatment. Leukocytosis. Moderate protein-calorie malnourishment. Lipase of 179. Continue to monitor lipase. We will follow the patient closely. Thank you Dr. Gonzalez for consult. NF/MODL Voice ID: [id number] Report ID: [id number]
[2025-01-24 06:44] LABS: Absolute Basophils 0.1 K/uL (0-0.5); Absolute Eosinophils 0.1 K/uL (0-0.5); Absolute Lymphocytes (CBC) 1.6 K/uL (0.7-4.9); Absolute Monocytes 0.6 K/uL (0.1-1.3); Absolute Neutrophil 8.8 K/uL (1.8-8.0); Basophils % 0.7 % (0-1.3); Eosinophils % 0.8 % (0-4.4); Hematocrit 40.4 % (39.6-49.0); Hemoglobin 13.6 g/dL (13.6-17.9); Lymphocytes % 14.2 % (15.3-44.8); MCH 30.9 pg (27.0-35.0); MCHC 33.7 g/dL (32.0-36.0); MCV 91.8 fL (80-100); MPV 10.1 fL (7.6-11.3); Monocytes % 5.6 % (3.3-12.3); Neutrophils % 78.7 % (41.7-73.7); Platelets 185 thou/uL (152-406); Red Cell Distribution Width 12.6 % (12.1-15.2)
[2025-01-24 06:57] LABS: Anion Gap 9.1 mEq/L (5.0-15.0); Potassium 4.1 mEq/L (3.5-5.1)
[2025-01-24] MEDS: MORPHINE 2 MG/ML SYR IV PRN (07:30)
--- NOTE | 2025-01-24 11:21 | RAD REPORT ---
EXAMINATION: CT Abdomen Pelvis W Contrast CLINICAL INDICATION: Male, 54 years old. PERFORATED DIVERTICULUM TECHNIQUE: CT abdomen and pelvis was performed, after the administration of IV contrast, as per [facility] protocol. Axial, sagittal and coronal reconstructions were obtained. One or more of the following dose reduction techniques were used: Automated exposure control, adjustment of the mA and k V according to patient size, and iterative reconstruction. Unless otherwise specified, incidental findings do not require dedicated imaging follow-up. COMPARISON: 01/21/2025 FINDINGS: LOWER CHEST: The visualized lung bases are clear. LIVER: Normal in size and contour. No focal lesion. BILIARY SYSTEM: Status post cholecystectomy. SPLEEN: Normal size. No focal lesion. PANCREAS: No mass, ductal dilation, or shanta-pancreatic fluid. ADRENALS: Left adrenal 1.4 cm nodule, stable. KIDNEYS: Normal size and contour. No hydronephrosis. URINARY BLADDER: Unremarkable. GASTROINTESTINAL TRACT: Stable extent of segmental wall thickening and adjacent fat stranding along t he proximal to mid sigmoid colon. Intramural collection along the left wall today measures 2.8 x 2.6 x 1.7 cm in greatest AP, CC, and transverse dimensions, previously measured 2.1 x 1.9 x 1.4 cm. T he other crescentic collection component more centrally/right wall is no longer visualized, therefore the 2 collections may have communicated in the interim. No evidence of free air, significan t intra-abdominal free fluid, bowel obstruction or other abnormal collections. Prominence of the vasa recta in the right lower quadrant seen on the prior exam is less pronounced today. APPENDIX: Normal appendix. LYMPH NODES: No lymphadenopathy. MUSCULOSKELETAL: No acute or suspicious osseous abnormality. ADDITIONAL FINDINGS: None. IMPRESSION: Segmental changes of acute, possibly multifocal, diverticulitis along the proximal to mid sigmoid col on. Intramural collection along the left wall shows interval increase in size, although the more central or right sigmoid colon wall collection is no longer visualized. The 2 collections may have communicated in the interim. No extraluminal gas, free fluid, or other fluid collections noted.
--- NOTE | 2025-01-24 13:48 | PN ---
Subjective: The patient lying in bed. No new acute event. Chart reviewed. Vital signs reviewed. Family by the bedside, quite upset about not getting enough information. The patient and family were told that from infection point of view, his numbers are doing well as his white blood cell count has come down from 14,500 to 11,200. The patient's complaint was that he is not having any bowel moveme nt. After asking if he had a bowel movement, the family and the patient got upset about and was clemente d that the body still produces enough secretions which should be able to show up as a bowel movement and also told the patient, we will try to communicate with the surgical team. Awaiting CT scan of e abdomen. Laboratory Data: Shows WBC 11.2, hemoglobin 13.6, platelets 185. Chemistry shows BUN of 8, creatini ne 0.8. Assessment And Plan: Diverticulitis, possible reason for the significant amount of abdominal pain. Continue Zosyn. As patient and family is quite upset to being treated by me, I will hold off on my s ervice at this point, and if needed, please re-consult. Consider getting evaluated by surgical team. We will follow the patient as needed. NF/MODL Voice ID: [id number] Report ID: [id number]
[2025-01-25 00:32] VITALS: O2SAT 97
[2025-01-25 06:38] LABS: Absolute Basophils 0.1 K/uL (0-0.5); Absolute Eosinophils 0.1 K/uL (0-0.5); Absolute Lymphocytes (CBC) 1.4 K/uL (0.7-4.9); Absolute Monocytes 0.6 K/uL (0.1-1.3); Absolute Neutrophil 9.2 K/uL (1.8-8.0); Basophils % 0.5 % (0-1.3); Eosinophils % 0.9 % (0-4.4); Hematocrit 44.1 % (39.6-49.0); Hemoglobin 14.7 g/dL (13.6-17.9); Lymphocytes % 12.6 % (15.3-44.8); MCH 30.6 pg (27.0-35.0); MCHC 33.3 g/dL (32.0-36.0); MCV 91.9 fL (80-100); MPV 10.5 fL (7.6-11.3); Monocytes % 5.7 % (3.3-12.3); Neutrophils % 80.3 % (41.7-73.7); Platelets 214 thou/uL (152-406); Red Cell Distribution Width 12.5 % (12.1-15.2)
[2025-01-25 06:59] LABS: Albumin 3.2 g/dL (3.4-5.0); Albumin/Globulin Ratio 0.9 (1.1-1.8); Anion Gap 11.6 mEq/L (5.0-15.0); Bilirubin Total 0.8 mg/dL (0.2-1.0); Globulin 3.6 g/dL (2.3-3.5); Magnesium 1.9 mg/dL (1.6-2.4); Potassium 3.6 mEq/L (3.5-5.1); Protein, Total 6.8 g/dL (6.4-8.2)
[2025-01-25 12:04] VITALS: BP 129/70; TEMP 98.2
--- NOTE | 2025-02-02 13:09 | P.PN ---
Date of Service: 01/23/25 Subjective Patient was treated with antibiotics and client care representative are improving. Continue with IV antibiotics at this time. Physical Examination - Physical Exam Vitals: Reviewed General: Mild distress HEENT: Atraumatic, Normocephalic Respiratory: Clear to auscultation bilaterally, Normal air movement Cardiovascular: Regular rate/rhythm, Normal S1 S2 Gastrointestinal: Non-distended, Tenderness Musculoskeletal: No clubbing, No swelling Integumentary: No rashes, No breakdown Assessment and Plan - Problems (Diagnosis) (1) Diverticulitis Current Visit: Yes Status: Acute (2) Nausea & vomiting Current Visit: Yes Status: Acute (3) Elevated lipase Current Visit: Yes Status: Acute - Plan Diverticulitis with concern for abscess Abdominal pain Nausea vomiting Elevated lipase Plan: -aggressive IV hydration -IV antibiotics -outpatient colonoscopy -pain controlled -stool studies -monitor for possible perforation -surgery consultation appreciated -repeat CT abdomen pelvis pending - Advance Directives Does patient have a Living Will: No Does patient have a Durable POA for Healthcare: No
--- NOTE | 2025-02-02 13:10 | P.PN ---
Date of Service: 01/24/[address] scan pending. If worsening abscess may need to transfer. If abscess has improved and advance diet and discharge home. Physical Examination - Physical Exam Vitals: Reviewed General: Mild distress HEENT: Atraumatic, Normocephalic Respiratory: Clear to auscultation bilaterally, Normal air movement Cardiovascular: Regular rate/rhythm, Normal S1 S2 Gastrointestinal: Non-distended, Tenderness Musculoskeletal: No clubbing, No swelling Integumentary: No rashes, No breakdown Assessment and Plan - Problems (Diagnosis) (1) Diverticulitis Current Visit: Yes Status: Acute (2) Nausea & vomiting Current Visit: Yes Status: Acute (3) Elevated lipase Current Visit: Yes Status: Acute - Plan Diverticulitis with concern for abscess Abdominal pain Nausea vomiting Elevated lipase Plan: -aggressive IV hydration -IV antibiotics -outpatient colonoscopy -pain controlled -stool studies -monitor for possible perforation -surgery consultation appreciated -repeat CT abdomen pelvis pending - Advance Directives Does patient have a Living Will: No Does patient have a Durable POA for Healthcare: No
--- NOTE | 2025-02-02 13:11 | P.DS ---
Discharge Date: 01/25/25 Disposition: TRANSFER TO [facility] Discharge Condition: GOOD Reason for Admission: diverticulitis Brief History of Present Illness: 54-year-old male with history of diverticulitis, cholecystectomy presents to the ER with complaints of abdominal pain and vomiting. He was seen in the ER 3 days ago. At that time he was diagnosed with diverticulitis and was given Augmentin. Subsequently reports having increased abdominal pain nausea and vomiting. States he mostly dry heaves but did have some nonbloody content. Reports history of diverticulitis for the last 20 years with multiple episodes. In the ER he had a CT scan which was abnormal General Surgery was contacted recommended admission and IV antibiotics. Hospital Course: Patient's CT scan showed progression of abscess. Patient was transferred to [facility] for further evaluation. Vital Signs/Physical Exam: Temp Pulse Resp BP Pulse Ox 98.2 F 77 16 129/70 97 01/25/25 12:00 01/25/25 12:00 01/25/25 15:14 01/25/25 12:00 01/25/25 15:14 General: Alert, In no apparent distress, Oriented x3 Laboratory Data at Discharge: WBC 11.40 thou/uL (4.3-10.9) H 01/25/25 06:10 Hgb 14.7 g/dL (13.6-17.9) D 01/25/25 06:10 Hct 44.1 % (39.6-49.0) 01/25/25 06:10 Plt Count 214 thou/uL (152-406) 01/25/25 06:10 Sodium 136 mEq/L (136-145) 01/25/25 06:10 Potassium 3.6 mEq/L (3.5-5.1) 01/25/25 06:10 BUN 8 mg/dL (7-18) 01/25/25 06:10 Creatinine 0.80 mg/dL (0.70-1.30) 01/25/25 06:10 Glucose 88 mg/dL (74-106) 01/25/25 06:10 Magnesium 1.9 mg/dL (1.6-2.4) 01/25/25 06:10 Total Bilirubin 0.8 mg/dL (0.2-1.0) 01/25/25 06:10 AST 13 U/L (15-37) L 01/25/25 06:10 ALT 16 U/L (16-61) 01/25/25 06:10 Alkaline Phosphatase 70 U/L (45-117) 01/25/25 06:10 Lipase 39 U/L (13-75) 01/25/25 06:10 Home Medications: Linaclotide [Linzess] 145 mcg PO SEECOM 01/23/25 Enoxaparin Sodium [Lovenox 40 MG INJ*] 40 mg SQ DAILY 5 PM syr 01/25/25 Hydrocodone 5/APAP 325 [[place] 5/325*] 1 tab PO Q6H PRN tab 01/25/25 Ondansetron [Zofran*] 4 mg IV Q4H PRN vial 01/25/25 Physician Discharge Instructions: transfer to [facility] Diet: NPO Activity: Fall precautions Followup: NONE,NONE [Primary Care Provider] - Time spent managing pt's care (in minutes): 35
== END 2025-01-25 16:00 | disposition short-term general hospital (02) | DRG 392 ==
LOC: ER 15:37 → ERHOLD 22:00 → 4TH 01-22 09:48
PROVIDERS: ADMIT Internal Medicine; ATTEND Hospitalist
DX: K57.20 Diverticulitis of large intestine with perforation and abscess without bleeding (principal); E44.0 Moderate protein-calorie malnutrition; K21.9 Gastro-esophageal reflux disease without esophagitis; Z68.25 Body mass index [BMI] 25.0-25.9, adult; Z90.49 Acquired absence of other specified parts of digestive tract; Z79.899 Other long term (current) drug therapy
CPT/HCPCS: 36415; 74177; 80048; 80053; 81003; 83605; 83690; 83735; 84145; 85025; 87040; 94010; 96361; 96365; 96367; 96375; 99285; J0744; J1171; J1650; J2270; J2405; J2543; J2550; J7030; Q9967

== ENCOUNTER 2025-02-06 05:23 | Inpatient (IN) | payer OTHER ==
[2025-02-06 06:02] LABS: Absolute Basophils 0.1 K/uL (0-0.5); Absolute Eosinophils 0.1 K/uL (0-0.5); Absolute Lymphocytes (CBC) 1.7 K/uL (0.7-4.9); Absolute Monocytes 0.7 K/uL (0.1-1.3); Absolute Neutrophil 10.5 K/uL (1.8-8.0); Basophils % 1.1 % (0-1.3); Eosinophils % 0.8 % (0-4.4); Hematocrit 44.4 % (39.6-49.0); Hemoglobin 15.2 g/dL (13.6-17.9); Lymphocytes % 12.7 % (15.3-44.8); MCH 30.6 pg (27.0-35.0); MCHC 34.2 g/dL (32.0-36.0); MCV 89.6 fL (80-100); MPV 9.7 fL (7.6-11.3); Monocytes % 5.4 % (3.3-12.3); Nucleated Red Blood Cells % 0.1 % (0-0); Platelets 235 thou/uL (152-406); RBC Red Blood Cell Count 4.96 M/uL (4.33-5.43); Red Cell Distribution Width 12.8 % (12.1-15.2)
[2025-02-06] MEDS ORDERED: ONDANSETRON 4 MG/2 ML VIAL ONE (06:04)
[2025-02-06] MEDS ORDERED: MORPHINE 4 MG/ML SYR ONE (06:04)
[2025-02-06] MEDS ORDERED: CEFTRIAXONE 1000 MG/VIAL ONE (06:04)
[2025-02-06] MEDS ORDERED: KETOROLAC 30 MG/ML INJ ONE (06:04)
[2025-02-06] MEDS ORDERED: MORPHINE 2 MG/ML SYR ONE (06:04)
[2025-02-06] MEDS ORDERED: METRONIDAZOLE 500mg IVPB 500 MG/100 ML BAG IV ONE (06:05)
[2025-02-06] MEDS ORDERED: NA CHLORIDE 0.9% 2,000 ML ONE (06:05)
[2025-02-06 06:14] LABS: Albumin 3.6 g/dL (3.4-5.0); Albumin/Globulin Ratio 0.9 (1.1-1.8); Anion Gap 7.9 mEq/L (5.0-15.0); Bilirubin Total 0.6 mg/dL (0.2-1.0); Globulin 3.9 g/dL (2.3-3.5); Potassium 3.9 mEq/L (3.5-5.1); Protein, Total 7.5 g/dL (6.4-8.2)
--- NOTE | 2025-02-06 07:39 | RAD REPORT ---
EXAMINATION: CT ABDOMEN AND PELVIS WITH CONTRAST CLINICAL INDICATION: ABD PAIN TECHNIQUE: CT abdomen and pelvis was performed, after the administration of IV contrast, as [facility]. Axial, sagittal and coronal reconstructions were obtained. One or more of the following dose reduction techniques were used: Automated exposure control, adjustment of the mA and k V according to patient size, and iterative reconstruction. Unless otherwise specified, incidental findings do not require dedicated imaging follow-up. COMPARISON: 01/24/2025 FINDINGS: LOWER CHEST: The visualized lung bases are clear. LIVER: Normal in size and contour. Tiny cyst likely present left lobe of the liver. No aggressive foc al lesion. Cholecystectomy clips. SPLEEN: Normal size. No focal lesion. PANCREAS: No mass, ductal dilation, or shanta-pancreatic fluid. ADRENALS: Small nodule present left adrenal gland. Adrenal glands otherwise unremarkable. KIDNEYS: Normal size and contour. No hydronephrosis. Punctate calculus superior calyx left kidney. GASTROINTESTINAL TRACT: Prominent sigmoid diverticulosis coli is present. Mild inflammation is seen i n the adjacent fat. Previously noted abscess within the wall of the sigmoid colon appears significantly improved. APPENDIX: Normal appendix. LYMPH NODES: No lymphadenopathy. MUSCULOSKELETAL: Mild multilevel spinal degenerative changes. ADDITIONAL FINDINGS: None. IMPRESSION: Prominent thickening of the sigmoid colon where numerous diverticula are present again seen. Inflamma tion surrounding the colon in this region in the pelvis appears mildly improved. Intramural collection has diminished in size since prior study this region. Follow-up colonoscopy would be recom mended to directly visualize this region of the colon.
--- NOTE | 2025-02-06 08:06 | ER ---
Nurse's Notes [facility] Name: Bernard Irving Age: 54 yrs Sex: Male : 1970 Arrival Date: 02/06/2025 Time: 05:23 Bed 5 Private MD: Diagnosis: Diverticulitis of large intestine without perforation or abscess without bleeding Presentation: 02/06 05:43 Chief complaint: Patient states: LEFT LOWER QUADRANT PAIN. Coronavirus screen: Client ha1 denies travel out of the [place] in the last 14 days. Ebola Screen: No symptoms or risks identified at this time. Initial Sepsis Screen: Does the patient meet any 2 criteria? No. Patient's initial sepsis screen is negative. Does the patient have a suspected source of infection? No. Patient's initial sepsis screen is negative. Risk Assessment: Do you want to hurt yourself or someone else? Patient reports no desire to harm self or others. Onset of symptoms was February 06, 2025. 05:43 Method Of Arrival: Ambulatory ha1 05:43 Acuity: ASH 3 ha1 Triage Assessment: 05:47 General: Appears uncomfortable, Behavior is calm, cooperative. Pain: Complains of pain ha1 in left lower quadrant Pain currently is 10 out of 10 on a pain scale. Quality of pain is described as throbbing. Neuro: Level of Consciousness is awake, alert, obeys commands, Oriented to person, place, time, situation. Cardiovascular: Capillary refill < 3 seconds. Respiratory: Airway is patent Respiratory effort is even, unlabored, Respiratory pattern is regular, symmetrical. GI: Abdomen is round non-distended, Reports lower abdominal pain. Musculoskeletal: Circulation, motion, and sensation intact. Range of motion: intact in all extremities. Historical: - Allergies: 05:47 No Known Allergies; ha1 - PMHx: 05:47 acid reflux; Diverticulitis; ha1 - PSHx: 05:47 Cholecystectomy; ha1 - Immunization history:: Adult Immunizations not up to date. - Infectious Disease History:: Denies. - Social history:: Smoking status: Patient denies any tobacco usage or history of. - Family history:: not pertinent. Screenin:21 [facility] ED Fall Risk Assessment (Adult) History of falling in the last 3 months, bm8 including since admission No falls in past 3 months (0 pts) Confusion or Disorientation No (0 pts) Intoxicated or Sedated No (0 pts) Impaired Gait No (0 pts) Mobility Assist Device Used No (0 pt) Altered Elimination No (0 pt) Score/Fall Risk Level 0 - 2 = Low Risk Oriented to surroundings, Maintained a safe environment, Educated pt \T\ family on fall prevention, incl call for assistance when getting out of bed, Assessed \T\ reinforced patient's understanding of fall precautions, Hourly rounding (assess needs \T\ fall precautionary measures) done, Used ambulatory aids as needed (educated on \T\ assisted with), Used gait belt as appropriate. Abuse screen: Denies threats or abuse. Nutritional screening: No deficits noted. Tuberculosis screening: No symptoms or risk factors identified. Assessment: 05:57 General: Appears in no apparent distress. uncomfortable, Behavior is calm, cooperative, dd2 appropriate for age. Pain: Complains of pain in left lower quadrant Pain does not radiate. Pain currently is 10 out of 10 on a pain scale. Quality of pain is described as crampy. 05:57 Neuro: No deficits noted. [place] Agitation-Sedation Scale (RASS): 0 - Alert and Calm dd2 Level of Consciousness is awake, alert, obeys commands, Oriented to person, place, time, situation, Appropriate for age. Cardiovascular: Denies chest pain, JVD is absent Patient's skin is warm and dry. Respiratory: No deficits noted. Airway is patent Respiratory effort is even, unlabored, Respiratory pattern is regular, symmetrical. GI: Abdomen is non-distended, Bowel sounds present X 4 quads. Abd is soft X 4 quads Abdomen is tender to palpation in left lower quadrant Reports lower abdominal pain, cramping. : No deficits noted. No signs and/or symptoms were reported regarding the genitourinary system. EENT: No deficits noted. No signs and/or symptoms were reported regarding the EENT system. Derm: No deficits noted. No signs and/or symptoms reported regarding the dermatologic system. Skin is intact, Skin is dry, Skin is normal, Skin temperature is warm. Musculoskeletal: No deficits noted. No signs and/or symptoms reported regarding the musculoskeletal system. Circulation, motion, and sensation intact. Range of motion: intact in all extremities. 07:00 Reassessment: report received from casino shift manager RN. ll1 07:25 General: Appears in no apparent distress. Behavior is calm, cooperative, appropriate ll1 for age. Pain: Complains of pain in abdomen Quality of pain is described as aching, crampy. GI: Reports lower abdominal pain, upper abdominal pain. 09:27 Reassessment: No changes from previously documented assessment. Patient and/or family ll1 updated on plan of care and expected duration. Pain level reassessed. Patient is alert, oriented x 3, equal unlabored respirations, skin warm/dry/pink. 09:57 Reassessment: Report faxed at this time. Vital Signs: 05:43 BP 112 / 90; Pulse 104; Resp 18 S; Temp 98.1(O); Pulse Ox 98% on R/A; Weight 72.57 kg; ha1 Height 5 ft. 8 in. ; Pain 10/10; 07:40 BP 115 / 81; Pulse 78; Resp 16; Pulse Ox 100% on R/A; ll1 09:27 BP 112 / 79; Pulse 76; Resp 16; Pulse Ox 99% ; ll1 10:02 BP 116 / 75; Pulse 76; Resp 16; Pulse Ox 97% ; ll1 05:43 Body Mass Index 24.33 (72.57 kg, 172.72 cm) ha1 05:43 Pain Scale: Adult ha1 Tawana Coma Score: 06:21 Eye Response: spontaneous(4). Motor Response: obeys commands(6). Verbal Response: bm8 oriented(5). Total: 15. 07:18 Eye Response: spontaneous(4). Motor Response: obeys commands(6). Verbal Response: sp4 oriented(5). Total: 15. ED Course: 05:26 Patient arrived in ED. gm2 05:47 Triage completed. ha1 05:48 CBC with Diff Sent. oh1 05:48 CMP Sent. oh1 05:48 Lipase Sent. oh1 05:50 Zen Campbell MD is Attending Physician. sp4 06:02 Jordi Silverman, RN is Primary Nurse. bm8 06:20 No provider procedures requiring assistance completed. Initial lab(s) drawn, by , eder sent to lab. Inserted saline lock: 20 gauge in left forearm, using aseptic technique. Blood collected. Flushed with 10 mL NS. Patient maintains SpO2 saturation greater than 95% on room air. 06:21 Patient has correct armband on for positive identification. Bed in low position. Call bm8 light in reach. Side rails up X2. Adult w/ patient. Client placed on continuous cardiac and pulse oximetry monitoring. NIBP monitoring applied. monitoring analyst on. Pulse ox on. NIBP on. Door closed. Noise minimized. Warm blanket given. Pillow given. Verbal reassurance given. Head of bed elevated. 07:14 CT Abd/Pelvis - IV Contrast Only In Process Unspecified. EDMS 07:40 Primary Nurse role handed off by Jordi Silverman, RN ll1 07:40 Vilma Crump, RN is Primary Nurse. ll1 07:51 Attending Physician role handed off by Zen Campbell MD rn 07:51 Husam Figueroa MD is Attending Physician. rn 08:05 Clement Figueroa MD is Hospitalizing Provider. rn 09:00 Urinalysis w/ reflexes Sent. ss 09:00 Provided Education on: ER procedures and process. ss 10:01 Patient admitted, IV remains in place. ll1 10:02 Arm band placed on. ll1 Administered Medications: 06:19 Drug: Ondansetron IVP 4 mg IVP once; over 2 minutes Route: IVP; Site: left forearm; bm8 07:25 Follow up: Response: No adverse reaction [facility] 06:19 Drug: Rocephin - Rocephin (cefTRIAXone) IVPB 1 grams IVPB once over 30 mins; (mix in 50 bm8 mL NS) Route: IVPB; Infused Over: 30 mins; Site: left forearm; 07:25 Follow up: Response: No adverse reaction; IV Status: Completed infusion; IV Intake: [id number] 06:19 Drug: metroNIDAZOLE IVPB 500 mg 100 ml IVPB at 200 ml/hr once over 30 mins Volume: 100 bm8 ml; Route: IVPB; Rate: 200 ml/hr; Infused Over: 30 mins; Site: left forearm; 07:24 Follow up: Response: No adverse reaction; IV Status: Completed infusion; IV Intake: ll1 100ml 06:20 Drug: morphine IVP or IV 6 mg IVP once over 4 mins Route: IVP; Infused Over: 4 mins; bm8 Site: left forearm; 07:26 Follow up: Response: No adverse reaction; Pain is decreased; RASS: Alert and Calm (0) ll1 06:20 Drug: NS 0.9% IV 1000 ml IV at 125 ml/hr Per protocol; to be given as a bolus over 60 bm8 minutes Route: IV; Rate: 125 ml/hr; Site: left forearm; 10:03 Follow up: Response: No adverse reaction; IV Status: Infusion continued upon admission; ll1 IV Intake: 500ml 06:20 Drug: NS 0.9% IV 1000 ml IV at 1000 ml once; to be given as a bolus over 60 minutes bm8 Route: IV; Rate: 1000 ml; Site: left forearm; 07:25 Follow up: Response: No adverse reaction; IV Status: Completed infusion; IV Intake: ll1 1000ml 06:20 Drug: Ketorolac IVP 30 mg IVP once Route: IVP; Site: left forearm; bm8 07:25 Follow up: Response: No adverse reaction ll1 Medication: 06:21 VIS not applicable for this client. bm8 Intake: 07:24 IV: 100ml; Total: 100ml. ll1 07:25 IV: 50ml; Total: 150ml. ll1 07:25 IV: 1000ml; Total: 1150ml. ll1 10:03 IV: 500ml; Total: 1650ml. ll1 Outcome: 08:05 Decision to Hospitalize by Provider. rn 09:30 Condition: stable ll1 09:30 Instructed on the need for admit, 10:01 Admitted to Med/surg accompanied by tech, via wheelchair, room room 211, with chart, ll1 Report called to faxed to 2nd 10:25 Patient left the ED. 1 Signatures: Dispatcher [employer] EDMS Husam Figueroa MD MD rn Blanchard, Shelby RN Vilma Boyer RN RN ll1 Ladi Olson RN RN maninder1 Zen Campbell MD MD sp4 Mitchell, Ginger 2 Jordi Silverman RN RN bm8 JOSE FERNANDES RN RN dd2 Breanna Betancourt oh1
--- NOTE | 2025-02-06 08:06 | EDPHYS ---
Physician Documentation [facility] Name: Bernard Irving Age: 54 yrs Sex: Male : 1970 Arrival Date: 02/06/2025 Time: 05:23 Bed 5 Private MD: ED Physician Husam Figueroa HPI: 02/06 05:50 This 54 yrs old Male presents to ER via Ambulatory with complaints of sp4 Abdominal Pain. 07:13 54-year-old male presents with complaint of acute left lower quadrant abdominal pain sp4 similar to prior episodes of diverticulitis.. Historical: - Allergies: 05:47 No Known Allergies; ha1 - PMHx: 05:47 acid reflux; Diverticulitis; ha1 - PSHx: 05:47 Cholecystectomy; ha1 - Immunization history:: Adult Immunizations not up to date. - Infectious Disease History:: Denies. - Social history:: Smoking status: Patient denies any tobacco usage or history of. - Family history:: not pertinent. ROS: 07:13 Constitutional: Negative for fever, chills, and weight loss, positive left lower sp4 quadrant abdominal pain 07:13 All other systems are negative, Exam: 07:18 Constitutional: This is a well developed, well nourished patient who is awake, alert, sp4 and in no acute distress. Head/Face: Normocephalic, atraumatic. Eyes: Pupils equal round and reactive to light, extra-ocular motions intact. Lids and lashes normal. Conjunctiva and sclera are not injected. Cornea within normal limits. Periorbital areas with no swelling, redness, or edema. ENT: Nares patent. No nasal discharge, no septal abnormalities noted. Tympanic membranes are normal and external auditory canals are clear. Oropharynx with no redness, swelling, or masses, exudates, or evidence of obstruction, uvula midline. Mucous membranes moist. Neck: Trachea midline, no thyromegaly or masses palpated, and no cervical lymphadenopathy. Supple, full range of motion without nuchal rigidity, or vertebral point tenderness. Chest/axilla: Normal chest wall appearance and motion. Nontender with no deformity. No lesions are appreciated. Cardiovascular: Regular rate and rhythm with a normal S1 and S2. No gallops, murmurs, or rubs. Normal PMI, no JVD. No pulse deficits. Respiratory: Lungs have equal breath sounds bilaterally, clear to auscultation and percussion. No rales, rhonchi or wheezes noted. No increased work of breathing, no retractions or nasal flaring. Abdomen/GI: Soft, with normal bowel sounds. No distension or tympany. Positive left lower quadrant tenderness with positive rebound. Back: No spinal tenderness. No costovertebral tenderness. Skin: Warm, dry with normal turgor. Normal color with no rashes, no lesions, and no evidence of cellulitis. MS/ Extremity: Pulses equal, no cyanosis. Neurovascular intact. Full, normal range of motion. Neuro: Awake and alert, GCS 15, oriented to person, place, time, and situation. Cranial nerves II-XII grossly intact. Motor strength 5/5 in all extremities. Sensory grossly intact. Psych: Awake, alert, with orientation to person, place and time. Behavior, mood, and affect are within normal limits Vital Signs: 05:43 BP 112 / 90; Pulse 104; Resp 18 S; Temp 98.1(O); Pulse Ox 98% on R/A; Weight 72.57 kg; ha1 Height 5 ft. 8 in. ; Pain 10/10; 07:40 BP 115 / 81; Pulse 78; Resp 16; Pulse Ox 100% on R/A; ll1 09:27 BP 112 / 79; Pulse 76; Resp 16; Pulse Ox 99% ; ll1 10:02 BP 116 / 75; Pulse 76; Resp 16; Pulse Ox 97% ; ll1 05:43 Body Mass Index 24.33 (72.57 kg, 172.72 cm) ha1 05:43 Pain Scale: Adult ha1 Tawana Coma Score: 06:21 Eye Response: spontaneous(4). Motor Response: obeys commands(6). Verbal Response: bm8 oriented(5). Total: 15. 07:18 Eye Response: spontaneous(4). Motor Response: obeys commands(6). Verbal Response: sp4 oriented(5). Total: 15. MDM: 05:56 ED course: Old Record review - COMPARISON: 01/21/2025 FINDINGS: LOWER CHEST: The sp4 visualized lung bases are clear. LIVER: Normal in size and contour. No focal lesion. BILIARY SYSTEM: Status post cholecystectomy. SPLEEN: Normal size. No focal lesion. PANCREAS: No mass, ductal dilation, or shanta-pancreatic fluid. ADRENALS: Left adrenal 1.4 cm nodule, stable. KIDNEYS: Normal size and contour. No hydronephrosis. URINARY BLADDER: Unremarkable. GASTROINTESTINAL TRACT: Stable extent of segmental wall thickening and adjacent fat stranding along the proximal to mid sigmoid colon. Intramural collection along the left wall today measures 2.8 x 2.6 x 1.7 cm in greatest AP, CC, and transverse dimensions, previously measured 2.1 x 1.9 x 1.4 cm. The other crescentic collection component more centrally/right wall is no longer visualized, therefore the 2 collections may have communicated in the interim. No evidence of free air, significant intra-abdominal free fluid, bowel obstruction or other abnormal collections. Prominence of the vasa recta in the right lower quadrant seen on the prior exam is less pronounced today. RADIOLOGY SERVICES REPORT (Continued) APPENDIX: Normal appendix. LYMPH NODES: No lymphadenopathy. MUSCULOSKELETAL: No acute or suspicious osseous abnormality. ADDITIONAL FINDINGS: None. IMPRESSION: Segmental changes of acute, possibly multifocal, diverticulitis along the proximal to mid sigmoid colon. Intramural collection along the left wall shows interval increase in size, although the more central or right sigmoid colon wall collection is no longer visualized. The 2 collections may have communicated in the interim. No extraluminal gas, free fluid, or other fluid collections noted. . 06:02 Medical Screening Exam initiated sp4 07:18 Differential diagnosis: appendicitis, bowel obstruction, cholecystitis, Cholelithiasis, sp4 diverticulitis, gastritis. Data reviewed: vital signs, nurses notes, lab test result(s), radiologic studies, CT scan. Consideration of Admission/Observation Escalation of care including admission/observation considered. Transition of care: After a detail discussion of the patient's case, care is transferred to Husam Figueroa MD. 08:02 Counseling: I had a detailed discussion with the patient and/or guardian regarding the rn historical points, exam findings, and any diagnostic results supporting the discharge/admit diagnosis, lab results, radiology results, the need for further work-up and treatment in the hospital. Response to treatment: the patient's symptoms have mildly improved after treatment. ED course: CT shows diverticulitis, no perforation, mild improvement overall but now patient has had 2 weeks of treatment without resolution, increased pain and vomiting. Will admit to hospitalist service.. 02/06 05:43 Order name: CBC with Diff; Complete Time: 07:51 ha1 02/06 05:43 Order name: CMP; Complete Time: 07:51 ha02/06 05:43 Order name: Lipase; Complete Time: 07:51 ha1 02/06 05:43 Order name: Urinalysis w/ reflexes; Complete Time: 09:22 ha02/06 09:38 Order name: Basic Metabolic Panel EDMS 02/06 09:38 Order name: Basic Metabolic Panel EDMS 02/06 09:38 Order name: Basic Metabolic Panel EDMS 02/06 09:38 Order name: Basic Metabolic Panel EDMS 02/06 09:38 Order name: Basic Metabolic Panel EDMS 02/06 09:38 Order name: Basic Metabolic Panel EDMS 02/06 09:38 Order name: Basic Metabolic Panel EDMS 02/06 09:38 Order name: Basic Metabolic Panel EDMS 02/06 09:38 Order name: Magnesium EDMS 02/06 09:38 Order name: Magnesium EDMS 02/06 09:38 Order name: Magnesium EDMS 02/06 09:38 Order name: Magnesium EDMS 02/06 09:38 Order name: Magnesium EDMS 02/06 09:38 Order name: Magnesium EDMS 02/06 09:38 Order name: Magnesium EDMS 02/06 09:38 Order name: Magnesium EDMS 02/06 09:38 Order name: Phosphorus EDMS 02/06 09:38 Order name: Phosphorus EDMS 02/06 09:38 Order name: Phosphorus EDMS 02/06 09:38 Order name: Phosphorus EDMS 02/06 09:38 Order name: Phosphorus EDMS 02/06 09:38 Order name: Phosphorus EDMS 02/06 09:38 Order name: Phosphorus EDMS 02/06 09:38 Order name: Phosphorus EDMS 02/06 09:38 Order name: CBC with Automated Diff EDMS 02/06 09:38 Order name: CBC with Automated Diff EDMS 02/06 09:38 Order name: CBC with Automated Diff EDMS 02/06 09:38 Order name: CBC with Automated Diff EDMS 02/06 09:38 Order name: CBC with Automated Diff EDMS 02/06 09:38 Order name: CBC with Automated Diff EDMS 02/06 09:38 Order name: CBC with Automated Diff EDMS 02/06 09:38 Order name: CBC with Automated Diff EDMS 02/06 05:53 Order name: CT Abd/Pelvis - IV Contrast Only; Complete Time: 07:51 sp4 02/06 09:38 Order name: CONS Physician Consult EDMS 02/06 05:43 Order name: IV Saline Lock; Complete Time: 05:48 ha1 02/06 05:43 Order name: Labs collected and sent; Complete Time: 05:48 ha1 Administered Medications: 06:19 Drug: Ondansetron IVP 4 mg IVP once; over 2 minutes Route: IVP; Site: left forearm; bm8 07:25 Follow up: Response: No adverse reaction ll1 06:19 Drug: Rocephin - Rocephin (cefTRIAXone) IVPB 1 grams IVPB once over 30 mins; (mix in 50 bm8 mL NS) Route: IVPB; Infused Over: 30 mins; Site: left forearm; 07:25 Follow up: Response: No adverse reaction; IV Status: Completed infusion; IV Intake: [id number] 06:19 Drug: metroNIDAZOLE IVPB 500 mg 100 ml IVPB at 200 ml/hr once over 30 mins Volume: 100 bm8 ml; Route: IVPB; Rate: 200 ml/hr; Infused Over: 30 mins; Site: left forearm; 07:24 Follow up: Response: No adverse reaction; IV Status: Completed infusion; IV Intake: ll1 100ml 06:20 Drug: morphine IVP or IV 6 mg IVP once over 4 mins Route: IVP; Infused Over: 4 mins; bm8 Site: left forearm; 07:26 Follow up: Response: No adverse reaction; Pain is decreased; RASS: Alert and Calm (0) ll1 06:20 Drug: NS 0.9% IV 1000 ml IV at 125 ml/hr Per protocol; to be given as a bolus over 60 bm8 minutes Route: IV; Rate: 125 ml/hr; Site: left forearm; 10:03 Follow up: Response: No adverse reaction; IV Status: Infusion continued upon admission; ll1 IV Intake: 500ml 06:20 Drug: NS 0.9% IV 1000 ml IV at 1000 ml once; to be given as a bolus over 60 minutes bm8 Route: IV; Rate: 1000 ml; Site: left forearm; 07:25 Follow up: Response: No adverse reaction; IV Status: Completed infusion; IV Intake: ll1 1000ml 06:20 Drug: Ketorolac IVP 30 mg IVP once Route: IVP; Site: left forearm; bm8 07:25 Follow up: Response: No adverse reaction ll1 Disposition Summary: 02/06/25 08:05 Hospitalization Ordered Notes: Hospitalization Status: Inpatient Admission rn Provider: Clement Figueroa rn Location: Telemetry/MedSurg (Inpatient) rn Condition: Stable rn Problem: an ongoing problem rn Symptoms: have improved rn Bed/Room Type: Standard rn Room Assignment: 211(02/06/25 09:56) ss Diagnosis - Diverticulitis of large intestine without perforation or abscess without bleeding rn Forms: - Medication Reconciliation Form rn - SBAR form rn - Leadership Thank You Letter rn Signatures: Dispatcher [employer] EDMS Husam Figueroa MD MD rn Blanchard, Shelby, RN RN Ladi Mcgarry RN RN maninder1 Zen Campbell MD MD sp4 Jordi Silverman RN RN bm8 Vilma Crump RN ll1 Corrections: (The following items were deleted from the chart) 05:43 05:43 CBC+H.LAB.BRZ ordered. EDMS EDMS 05:43 05:43 COMPREHENSIVE METABOLIC PANEL+C.LAB.BRZ ordered. EDMS EDMS 05:43 05:43 LIPASE+C.LAB.BRZ ordered. EDMS EDMS 09:56 08:05 rn ss
[2025-02-06 09:20] LABS: Sqamous Epithelial <5 /HPF (None Seen); Urine Bacteria None Seen /HPF (<20); Urine Bilirubin NEGATIVE (Negative); Urine Blood Negative (Negative); Urine Clarity Clear (Clear); Urine Color Light-Yellow (Yellow); Urine Culture Reflex Order NOT NEEDED; Urine Glucose NEGATIVE (Negative); Urine Ketones NEGATIVE (Negative); Urine Microscopic Reflex YN ORDER UMIC; Urine Nitrite NEGATIVE (Negative); Urine Protein NEGATIVE (Negative); Urine RBC <5 /HPF (None Seen); Urine Urobilinogen Normal (Normal); Urine WBC <5 /HPF (<5); Urine pH 7.5 (5.0-7.0)
[2025-02-06 09:22] LABS: Specific Gravity > 1.030 (1.005-1.030)
[2025-02-06] MEDS ORDERED: ACETAMINOPHEN 325 MG TABLET PO PRN (09:31)
[2025-02-06] MEDS: NA CHLORIDE 0.9% 1,000 ML IV SCH (10:47)
[2025-02-06 10:59] VITALS: O2SAT 97
[2025-02-06 11:04] VITALS: BMI 24.3
--- NOTE | 2025-02-06 12:20 | P.HP ---
Certification for Inpatient Patient admitted to: Inpatient With expected LOS: >2 Midnights Practitioner: I am a practitioner with admitting privileges, knowledge of patient current condition, hospital course, and medical plan of care. Services: Services provided to patient in accordance with Admission requirements found in Title 42 Section 412.3 of the Code of Federal Regulations Patient History Date of Service: 02/06/25 Reason for admission: Acute diverticulitis History of Present Illness: Bernard Irving is a 54 year old male with Pmhx Diverticulitis and acid reflux who presents to the ED with LLQ pain that became severe last night. He reports completing two weeks of antibiotics and his last BM was this morning. He reports being seen by Dr. Hays since his last admission with plans to see him on Thursday for surgical intervention soon. He reports being transfered to [place] during last admission for an abscess drainage but the abscess was not large enough for that procedure and was discharged home. Today, CT abd/pelvis shows improvement to that abscess. Laboratory evaluation significant for WBC 13, left shift with neutrophils 80, sodium 135, serum glucose 123, lipase 87. CT abdomen pelvis reports "Prominent sigmoid diverticulosis coli is present. Mild inflammation is seen in the adjacent fat. Previously noted abscess within the wall of the sigmoid colon appears significantly improved." Bernard will be admitted to hospitalist service for further evaluation and treatment of acute diverticulitis, Dr. Hays consulted. Allergies No Known Allergies Allergy (Unverified 02/17/23 19:56) Home Medications: Linaclotide [Linzess] 145 mcg PO SEECOM 01/23/25 Enoxaparin Sodium [Lovenox 40 MG INJ*] 40 mg SQ DAILY 5 PM syr 01/25/25 Hydrocodone 5/APAP 325 [[place] 5/325*] 1 tab PO Q6H PRN tab 01/25/25 Ondansetron [Zofran*] 4 mg IV Q4H PRN vial 01/25/25 - Past Medical/Surgical History Has patient received pneumonia vaccine in the past: No Diabetic: No -: Diverticulitis -: GERD. - Social History Smoking Status: Never smoker Alcohol use: No CD- Drugs: No Caffeine use: No Place of Residence: Home Review of Systems Other: per HPI Physical Examination - Vital Signs Temperature: 98.1 F Blood Pressure: 116/75 Pulse: 76 Respirations: 16 Pulse Ox (%): 99 - Physical Exam General: Alert, In no apparent distress, Oriented x3 HEENT: Atraumatic, Normocephalic Neck: Supple, JVD not distended Respiratory: Clear to auscultation bilaterally, Normal air movement Cardiovascular: Normal pulses, Normal S1 S2 Capillary refill: <2 Seconds Gastrointestinal: Normal bowel sounds, Soft and benign, Non-distended, No tenderness Musculoskeletal: No clubbing Integumentary: No rashes Neurological: Normal tone - Studies Laboratory Data (last 24 hrs) 02/06/25 02/06/25 05:46 05:46 WBC 13.10 H Hgb 15.2 Hct 44.4 Plt Count 235 Sodium 135 L Potassium 3.9 BUN 8 Creatinine 1.07 Glucose 123 H Total Bilirubin 0.6 AST 16 ALT 33 Alkaline Phosphatase 78 Lipase 87 H Assessment and Plan - Plan Assessment and plan Acute diverticulitis Leukocytosis Left lower quadrant pain - Dr. Hays consulted - Gentle IV fluids - Cipro and Flagyl IV - Clear liquid diet - Protonix twice daily - Morphine as needed -Lipase 87, monitor in AM Hyperglycemic likely 2/2 inflammation -continue to monitor -A1C in the AM History of GERD - Protonix IV DVT PPx SCDs Full code LOS 2 to 3 days Discharge Plan: Home Plan to discharge in: 72 Hours - Advance Directives Does patient have a Living Will: No Does patient have a Durable POA for Healthcare: No
[2025-02-06] MEDS: MORPHINE 2 MG/ML SYR IV PRN (14:02)
[2025-02-06] MEDS: PANTOPRAZOLE 40 MG INJ IVP SCH (14:07)
[2025-02-06] MEDS: SODIUM CHLORIDE 0.9% 10ML INJ IV SCH (14:08)
[2025-02-06] MEDS: METRONIDAZOLE 500mg IVPB 500 MG/100 ML BAG IV SCH (17:50)
[2025-02-06] MEDS: CIPROFLOXACIN 400mg IV 400 MG/200 ML BAG IV SCH (20:27)
[2025-02-06] MEDS: ONDANSETRON 4 MG/2 ML VIAL ONE (21:19)
[2025-02-07] MEDS: HYDROCODONE/APAP 7.5/325 MG TAB PO PRN (00:07)
[2025-02-07 05:13] LABS: Absolute Basophils 0.1 K/uL (0-0.5); Absolute Eosinophils 0.2 K/uL (0-0.5); Absolute Lymphocytes (CBC) 1.7 K/uL (0.7-4.9); Absolute Monocytes 0.9 K/uL (0.1-1.3); Absolute Neutrophil 7.7 K/uL (1.8-8.0); Basophils % 0.6 % (0-1.3); Eosinophils % 1.5 % (0-4.4); Hemoglobin 13.5 g/dL (13.6-17.9); Lymphocytes % 16.1 % (15.3-44.8); MCH 31.4 pg (27.0-35.0); MCHC 34.6 g/dL (32.0-36.0); MCV 90.8 fL (80-100); MPV 9.9 fL (7.6-11.3); Monocytes % 8.5 % (3.3-12.3); Neutrophils % 73.3 % (41.7-73.7); Nucleated Red Blood Cells % 0.1 % (0-0); Platelets 182 thou/uL (152-406)
[2025-02-07 05:26] LABS: Anion Gap 6.4 mEq/L (5.0-15.0); Magnesium 2.1 mg/dL (1.6-2.4); Phosphorus 2.5 mg/dL (2.5-4.9); Potassium 4.4 mEq/L (3.5-5.1)
--- NOTE | 2025-02-07 12:35 | P.PN ---
Subjective Date of Service: 02/07/25 Chief Complaint: Acute diverticulitis Subjective: Improving (Patient states he is improving overall has less pain in the abdomen ready to advance diet. Passing gas) Physical Examination - Vital Signs Temperature: 98 F Blood Pressure: 112/64 Pulse: 70 Respirations: 16 Pulse Ox (%): 98 - Physical Exam General: Alert, In no apparent distress, Cooperative Cardiovascular: Regular rate/rhythm Gastrointestinal: Other (Soft, mild left lower quadrant tenderness to palpation, no rebound or guarding no focal peritonitis improved from prior exam.) Assessment And Plan - Current Problems (Diagnosis) (1) Diverticulitis Current Visit: No Status: Acute Plan: - Continue antibiotics. - Continue serial exams - Continue medical management - Advance diet to soft diet slowly, fulls today advance tomorrow. - Possible DC tomorrow antibiotics. - Patient will follow-up with colonoscopy and to discuss surgical planning in the future.
--- NOTE | 2025-02-07 18:09 | P.PN ---
Date of Service: 02/07/25 Subjective Reports feeling better, pain is controlled Likely dc in the AM ROS 10 point ROS as noted above, otherwise negative Physical Exam General: AAO x3, NAD HEENT: Atraumatic, Normocephalic Neck: Supple, JVD not distended Respiratory: Clear BBS, Normal air movement, on RA Cardiovascular: Normal S1 S2, RRR Capillary refill: <2 Seconds Gastrointestinal: Normal active bowel sounds, Soft on palpation Musculoskeletal: No clubbing Integumentary: No rashes Neurological: Normal tone Vitals Reviewed Problem list Acute diverticulitis Leukocytosis Left lower quadrant pain Hyperglycemic likely 2/2 inflammation History of GERD Assessment and Plan Acute diverticulitis Leukocytosis Left lower quadrant pain - Dr. Hays consulted - Continue Gentle IV fluids - continue Cipro and Flagyl IV - FLD to advance to soft GI in the AM - Protonix twice daily - Morphine as needed - Lipase 87 to 26 Hyperglycemic likely 2/2 inflammation -continue to monitor -A1C 5.5 History of GERD - Protonix IV DVT PPx SCDs Full code LOS 2 to 3 days Discharge Plan: Home Plan to discharge in: 24 Hours
[2025-02-08 04:56] LABS: Absolute Eosinophils 0.2 K/uL (0-0.5); Absolute Lymphocytes (CBC) 1.7 K/uL (0.7-4.9); Absolute Monocytes 0.7 K/uL (0.1-1.3); Absolute Neutrophil 6.2 K/uL (1.8-8.0); Basophils % 0.5 % (0-1.3); Eosinophils % 2.3 % (0-4.4); Hematocrit 40.2 % (39.6-49.0); Hemoglobin 13.7 g/dL (13.6-17.9); MCHC 34.1 g/dL (32.0-36.0); MCV 90.9 fL (80-100); MPV 10.2 fL (7.6-11.3); Monocytes % 7.9 % (3.3-12.3); Neutrophils % 70.3 % (41.7-73.7); Nucleated Red Blood Cells % 0.2 % (0-0); Platelets 188 thou/uL (152-406); RBC Red Blood Cell Count 4.42 M/uL (4.33-5.43); Red Cell Distribution Width 12.8 % (12.1-15.2)
[2025-02-08 05:07] LABS: Anion Gap 6.5 mEq/L (5.0-15.0); Magnesium 1.9 mg/dL (1.6-2.4); Phosphorus 3.5 mg/dL (2.5-4.9); Potassium 4.5 mEq/L (3.5-5.1)
[2025-02-08] MEDS: ONDANSETRON 4 MG/2 ML VIAL IV PRN (07:09)
[2025-02-08] MEDS: metroNIDAZOLE 500 MG TABLET PO SCH (10:04)
[2025-02-08] MEDS ORDERED: DICYCLOMINE HCL 10 MG CAP PO PRN (11:56)
--- NOTE | 2025-02-08 18:25 | P.PN ---
Date of Service: 02/08/25 Subjective Reports increased in pain and now vomiting ROS 10 point ROS as noted above, otherwise negative Physical Exam General: Alert and oriented x3, NAD HEENT: Atraumatic, Normocephalic Neck: Supple, JVD not distended Respiratory: symmetrical chest wall movement, on RA Cardiovascular: Normal S1 S2, RRR Capillary refill: <2 Seconds Gastrointestinal: Normal active bowel sounds, Soft on palpation Musculoskeletal: No clubbing Integumentary: No rashes Neurological: Normal tone Vitals Reviewed Problem list Acute diverticulitis Leukocytosis Left lower quadrant pain Hyperglycemic likely 2/2 inflammation History of GERD Assessment and Plan Acute diverticulitis Leukocytosis Left lower quadrant pain - Dr. Hays consulted - Continue Gentle IV fluids - continue Cipro and Flagyl IV - FLD to advance to soft GI in the AM - Protonix twice daily - Morphine as needed - Lipase 87 to 26 Hyperglycemic likely 2/2 inflammation -continue to monitor -A1C 5.5 History of GERD - Protonix IV Interval hospital course 02/08/25 Continued pain Saúl to re-evaluate changed antibiotics to PO in preparation for discharge DVT PPx SCDs Full code LOS 2 to 3 days Discharge Plan: Home Plan to discharge in: 24 Hours
[2025-02-08] MEDS: PROMETHAZINE 25 MG TABLET PO PRN (18:36)
--- NOTE | 2025-02-08 19:37 | CON ---
History Of Present Illness: This is a 54-year-old male with significant past medical history of dive rticulitis and acid reflux for a few years. Patient coming into the emergency room with left lower q uadrant pain, which became severe. He was on oral antibiotic after he was recently discharged from [facility]. The patient continued to have abdominal discomfort and abdominal CT done shows that the patient has prominent thickening of the sigmoid colon where numerous diverticula are present. Again , seen inflammation surrounded the colon in this region, in the pelvis, appears mildly improved. Int ramural collection has diminished in size since prior studies of this region. The patient is current ly on IV antibiotics including Rocephin and Flagyl IV and pain medication. Past Medical History: As per HPI. Social History: Nonsmoker. Nondrinker. Family History: Noncontributory. Medications: Rocephin and Flagyl. See MARs for other medications. Allergies: NO KNOWN DRUG ALLERGIES. Review of Systems: A 10-point review was performed. Physical Examination: General: This is a 54-year-old male lying in bed, not in any acute distress except complaints of abd ominal discomfort. Vital Signs: Temperature 98, pulse 84, respirations 17, blood pressure 113/53. HEENT: Unremarkable. Neck: Supple. Lungs: Clear to auscultation. Heart: S1, S2. Regular. Abdomen: Left lower quadrant tenderness. Bowel sounds present. Extremities: No edema. Laboratory Data: Shows WBC 13, hemoglobin 15.2, platelets 235, BUN 8, creatinine 0.7, lipase is 87, albumin is 3.9. Assessment And Plan: 54-year-old male with known case of diverticulitis, coming in with acute episod e and leukocytosis and fever with nausea and vomiting. The patient has improved. We will recommend to switch patient to oral antibiotics Cipro and Flagyl for 2 weeks and to follow up with colorectal s urgeon. Leukocytosis has improved. Dietary consult. Monitor signs of infection with WBC and fever trends. Thank you, Dr. Cabrera, for consult. NF/TYL Voice ID: [id number] Report ID: [id number]
[2025-02-08] MEDS: CIPROFLOXACIN HCL 500 MG TAB PO SCH (22:03)
[2025-02-09 04:59] LABS: Absolute Basophils 0.1 K/uL (0-0.5); Absolute Eosinophils 0.2 K/uL (0-0.5); Absolute Lymphocytes (CBC) 1.6 K/uL (0.7-4.9); Absolute Monocytes 0.6 K/uL (0.1-1.3); Absolute Neutrophil 4.8 K/uL (1.8-8.0); Basophils % 0.9 % (0-1.3); Eosinophils % 2.4 % (0-4.4); Hemoglobin 14.4 g/dL (13.6-17.9); Lymphocytes % 22.8 % (15.3-44.8); MCHC 34.4 g/dL (32.0-36.0); MCV 90.1 fL (80-100); MPV 10.4 fL (7.6-11.3); Monocytes % 7.6 % (3.3-12.3); Neutrophils % 66.3 % (41.7-73.7); Nucleated Red Blood Cells % 0.1 % (0-0); Platelets 210 thou/uL (152-406); RBC Red Blood Cell Count 4.66 M/uL (4.33-5.43); Red Cell Distribution Width 12.8 % (12.1-15.2)
[2025-02-09 05:37] LABS: Anion Gap 11.1 mEq/L (5.0-15.0); Magnesium 1.9 mg/dL (1.6-2.4); Phosphorus 3.5 mg/dL (2.5-4.9); Potassium 4.1 mEq/L (3.5-5.1)
[2025-02-09] MEDS: PANTOPRAZOLE 40MG TABLET PO SCH (08:24)
--- NOTE | 2025-02-09 17:59 | P.DS ---
Admission Date: 02/06/25 Discharge Date: 02/09/25 Disposition: ROUTINE DISCHARGE Discharge Condition: GOOD Reason for Admission: Acute diverticulitis Brief History of Present Illness: Diagnosis Acute diverticulitis Leukocytosis Left lower quadrant pain Hyperglycemic likely 2/2 inflammation History of GERD HPI 02/06/25 Bernard Irving is a 54 year old male with Pmhx Diverticulitis and acid reflux who presents to the ED with LLQ pain that became severe last night. He reports completing two weeks of antibiotics and his last BM was this morning. He reports being seen by Dr. Hays since his last admission with plans to see him on Thursday for surgical intervention soon. He reports being transfered to [place] during last admission for an abscess drainage but the abscess was not large enough for that procedure and was discharged home. Today, CT abd/pelvis shows improvement to that abscess. Laboratory evaluation significant for WBC 13, left shift with neutrophils 80, sodium 135, serum glucose 123, lipase 87. CT abdomen pelvis reports "Prominent sigmoid diverticulosis coli is present. Mild inflammation is seen in the adjacent fat. Previously noted abscess within the wall of the sigmoid colon appears significantly improved." Bernard will be admitted to hospitalist service for further evaluation and treatment of acute diverticulitis, Dr. Hays consulted. Hospital Course: Bernard Irving was admitted and treated for the following diagnosis. Acute diverticulitis Leukocytosis Left lower quadrant pain Hyperglycemic likely 2/2 inflammation History of GERD - Dr. Hays followed, cleared for discharge as he is tolerating fiber restrictive diet, no surgical intervention this admission - Treated with Gentle IV fluids, Cipro, and Flagyl IV, Protonix twice daily, Morphine as needed - Lipase 87 to 26, trended to normal -A1C 5.5 On 02/09/25, Bernard was seen on morning round hemodynamically stable, lab work unremarkable, and in no acute distress with decreased LLQ pain. Dr. Hays evaluated and cleared him for discharge with a follow up at his office. He has tolerated PO fiber restrictive diet Bentyl, Cipro, Flagyl, Phenergan, Protonix prescribed. Physical Exam General: AAOx3, NAD Neck: Supple, JVD not distended Respiratory: Nonlabored breathing, on RA Cardiovascular: Normal S1 S2, regular rate and rhythm Capillary refill: <2 Seconds Gastrointestinal: Normal active bowel sounds, Soft on palpation Musculoskeletal: No clubbing Integumentary: No rashes Neurological: Normal tone Vital Signs/Physical Exam: Temp Pulse Resp BP Pulse Ox 97.9 F 81 15 102/66 95 02/09/25 12:00 02/09/25 12:00 02/09/25 12:00 02/09/25 12:00 02/09/25 12:00 Laboratory Data at Discharge: WBC 7.20 thou/uL (4.3-10.9) 02/09/25 04:20 Hgb 14.4 g/dL (13.6-17.9) 02/09/25 04:20 Hct 42.0 % (39.6-49.0) 02/09/25 04:20 Plt Count 210 thou/uL (152-406) 02/09/25 04:20 Sodium 138 mEq/L (136-145) 02/09/25 04:20 Potassium 4.1 mEq/L (3.5-5.1) 02/09/25 04:20 BUN 7 mg/dL (7-18) 02/09/25 04:20 Creatinine 1.03 mg/dL (0.70-1.30) 02/09/25 04:20 Glucose 100 mg/dL (74-106) 02/09/25 04:20 Phosphorus 3.5 mg/dL (2.5-4.9) 02/09/25 04:20 Magnesium 1.9 mg/dL (1.6-2.4) 02/09/25 04:20 Total Bilirubin 0.6 mg/dL (0.2-1.0) 02/06/25 05:46 AST 16 U/L (15-37) 02/06/25 05:46 ALT 33 U/L (16-61) 02/06/25 05:46 Alkaline Phosphatase 78 U/L (45-117) 02/06/25 05:46 Lipase 30 U/L (13-75) 02/09/25 04:20 Home Medications: Ciprofloxacin HCl [Cipro 500 MG Tablet] 500 mg PO BID 14 Days #28 tab 02/09/25 Dicyclomine [Bentyl*] 10 mg PO TID PRN 30 Days #90 cap 02/09/25 Ensure High Protein 237 ml PO BID 30 Days #60 can 02/09/25 Pantoprazole [Protonix Tab*] 40 mg PO BIDAC 30 Days #60 tab 02/09/25 Promethazine Tab [Phenergan*] 25 mg PO Q4H PRN 5 Days #15 tab 02/09/25 metroNIDAZOLE [Flagyl] 500 mg PO Q8H 14 Days #42 tab 02/09/25 New Medications: Dicyclomine [Bentyl*] 10 mg PO TID PRN 30 Days #90 cap PRN Reason: Abdominal Pain Ciprofloxacin HCl [Cipro 500 MG Tablet] 500 mg PO BID 14 Days #28 tab Ensure High Protein 237 ml PO BID 30 Days #60 can metroNIDAZOLE [Flagyl] 500 mg PO Q8H 14 Days #42 tab Promethazine Tab [Phenergan*] 25 mg PO Q4H PRN 5 Days #15 tab PRN Reason: Nausea / Vomiting Pantoprazole [Protonix Tab*] 40 mg PO BIDAC 30 Days #60 tab Physician Discharge Instructions: 1. Please call and schedule a follow-up appointment with your PCP in 3-5 days - Please follow-up with your PCP for medication refills/adjustments 2. Please call and schedule a follow-up appointment with Dr. Hays in one week 3. Please call and schedule a follow-up appointment with a colorectal surgeon within the next month 3. Continue fiber restricted, GI soft diet, continue nutritional shakes 4. No activity restrictions 5. Return to the ED if symptoms worsen New medications Bentyl 10 mg p.o. 3 times daily x 30 days Ciprofloxacin 500 mg twice daily x 14 days Flagyl 500 mg 3 times daily x 14 days Phenergan 25 mg every 4 hours as needed for nausea Protonix 40 mg twice daily x 30 days Ensure high-protein 237 mL twice daily x 30 days Diet: fiber rest Followup: Geronimo Hays MD [ACTIVE - CAN ADMIT] -
[2025-02-09 18:05] VITALS: BP 118/75; TEMP 98.2
[2025-02-09] MEDS ORDERED: ENSURE HIGH PROTEIN 237 ML CAN PO SCH (21:00)
--- NOTE | 2025-02-09 23:43 | PN ---
Subjective: The patient lying in bed. No new acute event. Chart reviewed. Objective: Vital Signs: Temperature 98, pulse 77, respirations 16, blood pressure 118/75. Lungs: Basal crackles. Heart: S1, S2. Regular. Abdomen: Soft, nontender. Left lower quadrant tenderness noted. Otherwise unremarkable. Bowel roxanne nds present. Extremities: No edema. Laboratory Data: Shows WBC 7.2, hemoglobin 14.4, platelets are 210, BUN 7, creatinine 1. The patien t tolerating antibiotic well. Currently, on Cipro and Flagyl. Assessment And Plan: Acute diverticulitis with history of abdominal abscess. The patient to continu e probiotic and follow up with dietitian and colorectal cancer. We will follow the patient as needed . NF/MODL Voice ID: [id number] Report ID: [id number]
== END 2025-02-09 19:00 | disposition home or self-care (01) | DRG 392 ==
LOC: ER 05:23 → ERHOLD 09:31 → 2ND 10:21
PROVIDERS: ADMIT Hospitalist; ATTEND Internal Medicine
DX: K57.32 Diverticulitis of large intestine without perforation or abscess without bleeding (principal); R73.9 Hyperglycemia, unspecified; K21.9 Gastro-esophageal reflux disease without esophagitis; Z90.49 Acquired absence of other specified parts of digestive tract; Z79.899 Other long term (current) drug therapy
CPT/HCPCS: 36415; 74177; 80048; 80053; 81001; 83036; 83690; 83735; 84100; 85025; 96361; 96365; 96368; 96375; 99285; A4216; J0696; J0744; J2270; J2405; J2470; J7030; Q0169; Q9967